=== PATIENT | female | born 1995 | race Caucasian/White ===

== ENCOUNTER → 2024-04-03 | Outpatient (CLI) | payer OTHER, SELFPAY ==
[2024-04-06 20:07] LABS: Chlamydia By Nucleic Acid AMP Negative (Negative); Gonococcus By Nucleic Acid AMP Negative (Negative)
[2024-04-08 07:58] LABS: HPV Reflexed? NOT INDICATED
== END | disposition home or self-care (01) ==
LOC: LABSPEC 10:43
PROVIDERS: Referring Provider Obstetrics & Gynecology; Visit Provider Obstetrics & Gynecology
DX: O09.90 Supervision of high risk pregnancy, unspecified, unspecified trimester (principal); Z3A.00 Weeks of gestation of pregnancy not specified; Z12.4 Encounter for screening for malignant neoplasm of cervix
CPT/HCPCS: 87086; 87491; 87591; 88175; G0145

== ENCOUNTER → 2024-04-28 | Outpatient (CLI) | payer OTHER, SELFPAY ==
[2024-04-28 17:06] LABS: Absolute Lymphocyte Count 2.12 X10^3/uL (0.83-4.51); Absolute Neutrophil Count 6.2 X10^3/uL (2.0-7.7); Basophil# 0.04 X10^3/uL; Basophil% 0.4 % (0-1); Eosinophil# 0.06 X10^3/uL; Eosinophils% 0.7 % (0-5); Hematocrit 33.1 % (37-47); Hemoglobin 11.3 g/dL (12.0-15.0); Lymphocyte # 2.12 X10^3/ul (0.83-4.51); Lymphocyte % 23.4 % (19-41); Mean Corp Hgb Conc 34.1 g/dL (32-36); Mean Corpuscular Hgb 31.8 pg (27.0-32.0); Mean Corpuscular Volume 93.2 fL (81-99); Mean Platelet Vol. 8.7 fl (6.2-12.0); Monocyte# 0.57 X10^3/uL; Monocyte% 6.3 % (0-10); NRBC Flagged by Analyzer 0 % (0-5); Neutrophil # 6.22 X10^3/uL (2.7-7.7); Neutrophil % 68.6 % (47-70); Platelet Count 249 K/mm3 (150-450); RBC Distribution Width CV 12.1 % (11.6-14.6); RBC Distribution Width SD 41.8 fl (35.1-43.9); Red Blood Count 3.55 M/mm3 (4.2-5.4); White Blood Count 9.1 K/mm3 (4.4-11.0)
[2024-04-28 18:08] LABS: Hepatitis B Surface Antigen Nonreactive (Nonreactive); Hepatitis C Antibody Nonreactive (Nonreactive); Rubella IgG REAC (Nonreactive); Syphilis Antibodies Nonreactive (Nonreactive)
[2024-04-28 20:31] LABS: HIV Nonreactive (Nonreactive)
[2024-05-01 05:07] LABS: Anti-Cardiolipin Ab, IgG, Qn < 9 GPL U/mL (0-14); Anti-Cardiolipin Ab, IgM, Qn < 9 MPL U/mL (0-12); Beta-2-Glycoprotein I IgA <9 (0-25); Beta-2-Glycoprotein I IgG <9 (0-20); Beta-2-Glycoprotein I IgM <9 (0-32); Dilute Prothrombin Time (dPT) 34.8 sec (0.0-47.6); Dilute Russell Viper Venom 28.7 sec (0.0-47.0); Interpretation Comment: (.); dPT Confirm Ratio 0.97 Ratio (0.00-1.34)
== END | disposition home or self-care (01) ==
PROVIDERS: Referring Provider Obstetrics & Gynecology; Visit Provider Obstetrics & Gynecology
DX: O09.90 Supervision of high risk pregnancy, unspecified, unspecified trimester (principal); Z3A.00 Weeks of gestation of pregnancy not specified; N96 Recurrent pregnancy loss
CPT/HCPCS: 36415; 85025; 86146; 86147; 86703; 86762; 86780; 86803; 86850; 86900; 86901; 87340

== ENCOUNTER → 2024-08-20 | Outpatient (CLI) | payer OTHER, SELFPAY ==
[2024-08-20 16:58] LABS: Hematocrit 30.3 % (37-47); Hemoglobin 10.3 g/dL (12.0-15.0); Immature Granulocytes Count 0.120 X10^3/uL (0.0-0.0); Mean Corp Hgb Conc 34.0 g/dL (32-36); Mean Corpuscular Volume 94.7 fL (81-99); Mean Platelet Vol. 8.4 fl (6.2-12.0); NRBC Flagged by Analyzer 0 % (0-5); Platelet Count 229 K/mm3 (150-450); RBC Distribution Width CV 12.4 % (11.6-14.6); RBC Distribution Width SD 43.1 fl (35.1-43.9); Red Blood Count 3.20 M/mm3 (4.2-5.4); White Blood Count 10.4 K/mm3 (4.4-11.0)
[2024-08-20 17:37] LABS: Glucose Challenge Gest 1H 50g 124 mg/dL (70-140); HIV Nonreactive (Nonreactive); Syphilis Antibodies Nonreactive (Nonreactive)
== END | disposition home or self-care (01) ==
PROVIDERS: Nurse Practitioner Women's Health; Visit Provider Obstetrics & Gynecology
DX: O09.90 Supervision of high risk pregnancy, unspecified, unspecified trimester (principal); Z13.1 Encounter for screening for diabetes mellitus; Z3A.00 Weeks of gestation of pregnancy not specified
CPT/HCPCS: 36415; 82950; 85025; 86703; 86780

== ENCOUNTER → 2024-09-16 | Outpatient (CLI) | payer MEDICAID, SELFPAY ==
[2024-09-16 11:03] LABS: Hematocrit 32.1 % (37-47); Hemoglobin 10.8 g/dL (12.0-15.0); Immature Granulocytes Count 0.090 X10^3/uL (0.0-0.0); Mean Corp Hgb Conc 33.6 g/dL (32-36); Mean Corpuscular Volume 95.5 fL (81-99); Mean Platelet Vol. 8.7 fl (6.2-12.0); NRBC Flagged by Analyzer 0 % (0-5); Platelet Count 214 K/mm3 (150-450); RBC Distribution Width CV 12.4 % (11.6-14.6); RBC Distribution Width SD 43.1 fl (35.1-43.9); Red Blood Count 3.36 M/mm3 (4.2-5.4); White Blood Count 10.2 K/mm3 (4.4-11.0)
[2024-09-16 12:07] LABS: AST(SGOT) 18 U/L (<=31); Alanine Aminotransfer ALT/SGPT 13 U/L (<=34); Albumin, Serum 3.6 g/dL (3.5-5.0); Alkaline Phosphatase 97 U/L (35-104); Anion Gap 12 (5-15); BUN 8 mg/dL (4-19); BUN/Creat Ratio 16.9 RATIO (10-20); Calcium,Total 9.2 mg/dL (7.6-11.0); Carbon Dioxide 20.5 mmol/L (21.0-32.0); Chloride 104 mmol/L (98-108); Globulin 2.9 g/dL (2.2-4.2); Glucose 79 mg/dL (70-99); Potassium 3.5 mmol/L (3.3-5.1)
== END | disposition home or self-care (01) ==
LOC: BWCLAB 08:58
PROVIDERS: Visit Provider Obstetrics & Gynecology
DX: R51.9 Headache, unspecified (principal)
CPT/HCPCS: 36415; 80053; 85025

== ENCOUNTER 2024-09-27 16:57 | Outpatient (CLI) | payer OTHER, MEDICAID, SELFPAY ==
--- OUTSIDE RECORDS SUMMARY | 2024-09-27 17:07 | XMS RPT_ITS | CCD ---
Author Organization [facility] CliniSypr Care Team Providers Care Winch Driver Name Role Phone Clau Guevara Primary Care Provider [phone] Ismael SALES RESEARCH ANALYST-BUTTING SAW OPERATOR, Clau Primary Care Provider Ismael SALES RESEARCH ANALYST-BUTTING SAW OPERATOR, Clau Primary Care Provider Ismael BUTTING SAW OPERATOR, Clau Carrasco Primary Care Provider CLAU GUEVARA Primary Care Unavailable ROMARIO LINDSEY Attending Unavailable ISMAEL, CLAU CARRASCO Primary Care Unavailable MIRA COELLO Attending Unava ilMICKEY Kapoor Attending Unavailab CLAU Galindo Primary Care Unavailable Guevara SALES RESEARCH ANALYST-BUTTING SAW OPERATOR, Clau Primary Care Provider CLAU GUEVARA Primary Care Unavailable ROMARIO LINDSEY Referring Unavailable ROMARIO LINDSEY Attending Unavailable HANNA BLANCA JR, JR Attending Unavaila ble ISMAEL, CLAU Referring Unavailable GUEVARA, CLAU Primary Care Unavailable SELF, SELF Referring Unavailable GUEVARA, CLAU Attending Unavailable GUEVARA, CLAU Primary Care Unavailable SELF, SELF Referring Unavailable ISMAEL, CLAU Attending Unavailable ISMAEL, CLAU Primary Care Unavailable Dr. Rochelle Farris MD Attending Provider Dr. Rochelle Farris MD Referring Provider [phone] AMIRA PISANO Attending Unavailable OSCAR MONTGOMERY Primary Care Unavailable ROCHELLE FARRIS Referring Unavailabl e Dr. Marie Reilly DO Attending Provider Mamie Sandoval CNM Attending Provider [phone] Maci Moy Attending Provider [phone] Rochelle Farris MD Attending Provider [phone] Dr. Rochelle Farris MD Referring Provider [phone] Dr. Rochelle Farris MD Attending Provider Marie Reilly Attending UnavailRochelle Robertson Attending Unavailable Mamie Sandoval Attending Unavailable Mode SANDOVAL, Maci Attending Unavailable Rochelle Farris Attending Unavailable Rochelle Farris Attending Unavailable Rochelle Farris Referring Unavailable Rochelle Farris Attending Unavailable Rochelle Farris Referring Unavailable Marie Reilly Attending UnavailMamie Arias Attending Unavailable Marie Reilly Attending UnavailRochelle Robertson Attending Unavailable Rochelle Farris Attending Unavailable Allergies Allergy Classification Reported Allergen(s) Allergy Type Date of Onset Reaction(s) Facility (20 sources) Clindamycin; Translations: [CLINDAMYCIN] Drug Allergy 7 [facility] (20 sources) Penicillins; Translations: [PENICILLINS] Propensity to adverse reactions to drug 7 [facility] (2 sources) Penicillins Propensity to adverse reactions to drug 8 [facility] (2 sources) Penicillins Propensity to adverse reactions to drug 7 [facility] (7 sources) Penicillins Allergy to substance 5 [facility] (1 source) Clindamycin Drug Allergy 5 [facility] (1 source) Penicillins Drug allergy (disorder) 5 [facility] Medications Current Medications Medication Drug Class(es) Dates Sig (Normalized) Sig (Original) albuterol 108 (90 Base) MCG/ACT Aero Soln inhaler (10 sources) take 1 puff(s) by inhalation every six hours as needed for wheezing albuterol 108 (90 Base) MCG/ACT Aero Soln inhaler Inhale 1 puff every 6 hours as needed for Wheezing. 0 Active azithromycin 250 mg oral tablet (1 source) Macrolide Antimicrobial Start: 07-03-2021 azithromycin 250 MG tablet TAKE 2 TABLETS BY MOUTH ON DAY 1, AND THEN TAKE 1 TABLET BY MOUTH ONCE A DAY ON DAY 2 THROUGH DAY 5 0 07/03/2021 Active cephalexin 500 mg oral capsule (1 source) Cephalosporin Antibacterial Start: 01-09-2023 End: 01-16-2023 take 1 capsule by mouth every eight hours cephALEXin 500 MG capsule Take 1 capsule by mouth every 8 hours for 7 days. 21 capsule 0 01/09/2023 01/16/2023 Active cyclobenzaprine hydrochloride 10 mg oral tablet (18 sources) Muscle Relaxant Start: 07-04-2023 End: 07-24-2023 take 1 tablet by mouth three times daily as needed for muscle spasms cyclobenzaprine (FLEXERIL) 10 MG tablet Take 1 (one) tablet (10 mg total) by mouth 3 (three) times a day as needed for muscle spasms . 60 tablet 0 07/04/2023 07/24/2023 Active Start: 07-16-2018 take 1 tablet by julee th every eight hours as needed for muscle spasms cyclobenzaprine 5 MG Tab tablet TAKE 1 TABLET BY MOUTH EVERY 8 HOURS NEEDED FOR MUSCLE SPASM 5 07/16/2018 Active Start: 12-24-2016 End: 05-23-2018 take 1 tablet by mouth once daily as needed cyclobenzaprine 5 MG Tab tablet Take 5 mg by mouth daily as needed. 0 12/24/2016 05/23/2018 Discontinued famotidine 20 mg oral tablet (2 sources) Histamine-2 Receptor Antagonist Start: 09-16-2024 take 1 tablet by mouth twice daily Famotidine (Pepcid) 20 mg tablet Active 20 mg PO TWICE A DAY 60 September 16, 2024 12:00am meloxicam 7.5 mg oral tablet (2 sources) Nonsteroidal Anti-inflammatory Drug Start: 01-24-2024 End: 03-24-2024 take 1 tablet by mouth once daily Meloxicam 7.5 MG tablet Take 1 tablet by mouth daily. 01/24/2024 03/24/2024 Active metaxalone 800 mg oral tablet (1 source) Start: 01-29-2024 take 1 tablet by mouth three times daily metaxalone 800 MG tablet Indications: Chronic bilateral low back pain, unspecified whether sciatica present , Myalgia Take 1 tablet by mouth 3 times daily. 30 tablet 2 01/29/2024 Active Mv-Mn 642-Ym-Np0-Dha-Epa -Fish 180 mcg-35 mg- 25 mg-5 mg tablet,chewable (6 sources) Start: 03-24-2024 Mv-Mn 783-Gr-Bd8-Dha-Epa -Fish 180 mcg-35 mg- 25 mg-5 mg tablet,chewable Active 1 {tbl} PO .qd March 24, 2024 1:00am Pnv No.701-Dy-Gg7-Dha- Epa-Fish 180 mcg-35 mg- 25 mg-5 mg tablet,chewable (1 source) Start: 03-24-2024 Pnv No.088-Qd-Fi0-Dha- Epa-Fish 180 mcg-35 mg- 25 mg-5 mg tablet,chewable Active {tbl} PO March 24, 2024 1:00am predniSONE 50 mg oral tablet (10 sources) Start: 01-21-2024 End: 01-28-2024 take 1 tablet by mouth once daily predniSONE (DELTASONE) 50 MG tablet Take 1 (one) tablet (50 mg total) by mouth daily for 7 days . 7 tablet 01/21/2024 01/28/2024 Active Start: 07-07-2021 End: 01-29-2024 take 1 tablet by mouth once daily predniSONE 20 MG tablet Take 1 tablet by mouth daily. 10 tablet 07/07/2021 01/29/2024 Discontinued (Therapy completed) Start: 04-14-2019 End: 08-26-2019 take 1 tablet by mouth twice daily predniSONE 20 MG tablet Take 1 tablet by mouth 2 times daily. 10 tablet 0 04/14/2019 08/26/2019 Discontinued (Therapy completed) Start: 08-14-2018 End: 04-14-2019 take 2 tablets by mouth once daily predniSONE 20 MG Tab tablet Indications: Chronic pain of left knee Take 2 tablets by mouth daily. 14 tablet 0 08/14/2018 04/14/2019 Discontinued (Therapy completed) Completed/Discontinued Medications Medication Drug Class(es) Dates Sig (Normalized) Sig (Original) [id number] 200 actuat albuterol 0.09 mg/actuat metered dose inhaler (4 sources) beta2-Adrenergic Agonist End: 01-29-2024 take 1 puff(s) by inhalation every six hours as needed for wheezing albuterol 108 (90 Base) MCG/ACT Aero Soln inhaler Inhale 1 puff every 6 hours as needed for Wheezing. 01/29/2024 Discontinued (Patient Preference) End: 05-23-2018 take 1 puff(s) by inhalation every six hours as needed for wheezing albuterol 108 (90 Base) MCG/ACT Aero Soln inhaler Inhale 1 puff every 6 hours as needed for Wheezing. 0 05/23/2018 Discontinued busPIRone hydrochloride 5 mg oral tablet (1 source) End: 08-26-2019 take 1 tablet by mouth three times daily busPIRone 5 MG tablet Take 5 mg by mouth 3 times daily. 0 08/26/2019 Discontinued (Patient Preference) COMPRESSION STOCKING -RX (12 sources) Start: 08-19-2019 End: 01-29-2024 COMPRESSION STOCKING -RX Indications: POTS (postural orthostatic tachycardia syndrome) 15-20 mmhg 1 Each 08/19/2019 01/29/2024 Discontinued (Patient Preference) Start: 08-19-[address] [place] -RX Indications: POTS (postural orthostatic tachycardia syndrome) 15-20 mmhg 1 Each 0 08/19/2019 Active dicyclomine hydrochloride 20 mg oral tablet (1 source) Anticholinergic Start: 10-30-2017 End: 05-23-2018 take 1 tablet by mouth every six hours as needed dicyclomine 20 MG Tab tablet Take 1 tablet by mouth every 6 hours as needed for Abdominal Spasms. For abdominal spasms 14 tablet 0 10/30/2017 05/23/2018 Discontinued 168 hr ethinyl estradiol 0.27227 mg/hr / norelgestromin 0.37239 mg/hr transdermal system (4 sources) Progestin, Estrogen Start: 05-24-2020 End: 01-29-2024 norelgestromin-eth inyl estradiol (Xulane) 150-35 MCG/24HR Patch Weekly Indications: Irregular periods , Dysmenorrhea , Encounter for initial prescription of transdermal patch hormonal contraceptive device Place 1 patch on skin every 7 days. Apply a new patch eack week for 3 weeks (21 total days). Do not apply a patch during the fourth week. 12 patch 3 05/24/2020 01/29/2024 Discontinued (Patient Preference) fexofenadine hydrochloride 180 mg oral tablet (1 source) Histamine-1 Receptor Antagonist Start: 04-09-2017 End: 05-23-2018 take 1 tablet by mouth once daily fexofenadine 180 MG Tab tablet Indications: Irritant contact dermatitis, unspecified trigger Take 1 tablet by mouth daily. 30 tablet 1 04/09/2017 05/23/2018 Discontinued ibuprofen 800 mg oral tablet (5 sources) Nonsteroidal Anti-inflammatory Drug Start: 05-24-2020 End: 01-29-2024 take 1 tablet by mouth every eight hours as needed for pain ibuprofen 800 MG tablet Indications: Dysmenorrhea Take 1 tablet by mouth every 8 hours as needed for Moderate Pain or Severe Pain. 50 tablet 1 05/24/2020 01/29/2024 Discontinued (Patient Preference) Start: 05-24-2020 End: 05-24-2020 take 1 tablet by mouth every six hours as needed for pain ibuprofen 800 MG tablet Indications: Dysmenorrhea Take 1 tablet by mouth every 6 hours as needed for Moderate Pain or Severe Pain. 50 tablet 1 05/24/2020 05/24/2020 Discontinued (Reorder) iohexol (OMNIPAQUE) 350 MG/ML injection 75 mL (1 source) Start: 04-14-2019 End: 04-14-2019 iohexol (OMNIPAQUE) 350 MG/ML injection 75 mL midodrine hydrochloride 10 mg oral tablet (8 sources) alpha-Adrenerg ic Agonist Start: 10-09-2019 End: 01-29-2024 take 1 tablet by mouth three times daily midodrine 10 MG tablet Indications: Vasodepressor syncope Take 1 tablet by mouth 3 times daily. 270 tablet 2 10/09/2019 01/29/2024 Discontinued (Patient Preference) Start: 09-14-2019 take 1 tablet by julee three times daily midodrine 5 MG tablet Indications: Vasodepressor syncope Take 1 tablet by mouth 3 times daily. 270 tablet 3 09/14/2019 Active naproxen 500 mg oral tablet (8 sources) Nonsteroidal Anti-inflammatory Drug Start: 07-24-2018 End: 08-26-2019 take 1 tablet by mouth twice daily at mealtime naproxen 500 MG Tab tablet Indications: Acute pain of left knee Take 1 tablet by mouth 2 times daily with meals. 60 tablet 1 07/24/2018 08/26/2019 Discontinued (Therapy completed) Start: 10-27-2017 End: 05-23-2018 take 1 tablet by mouth twice daily at mealtime naproxen (NAPROSYN) 500 MG Tab tablet Take 1 tablet by mouth 2 times daily with meals for 10 days. 20 tablet 0 10/27/2017 05/23/2018 Discontinued nitroglycerin 0.4 mg/actuat mucosal spray (1 source) Nitrate Vasodilator Start: 09-14-2019 End: 09-15-2019 nitroGLYCERIN (NITROLINGUAL) spray 1 spray ondansetron 4 mg disintegrating oral tablet (1 source) Serotonin-3 Receptor Antagonist Start: 10-30-2017 End: 05-23-2018 take 1 tablet by mouth every four hours as needed ondansetron (ZOFRAN ODT) 4 MG Tab Dispersible tablet Take 1 tablet by mouth every 4 hours as needed for Nausea. 15 tablet 0 10/30/2017 05/23/2018 Discontinued 250 ml sodium chloride 9 mg/ml injection (3 sources) Start: 09-14-2019 End: 09-14-2019 sodium chloride 0.9% IV solution 1,000 mL Start: 04-14-2019 End: 04-14-2019 sodium chloride 0.9% IV solu tion 75 mL Start: 04-14-2019 End: 04-14-2019 sodium chloride 0.9% IV solu tion 1,000 mL vitamin b6 10 mg oral tablet (7 sources) Start: 04-03-2024 End: 06-29-2024 take 1 tablet by mouth once daily as needed Pyridoxine (Vitamin B6) 10 mg tablet Discontinued 10 mg PO daily as needed April 03, 2024 1:00am June 29, 2024 2:25pm Problems Active Problems Problem Classification Problem Date Documented Da te Episodic/Chronic Abdominal pain (1 source) Left lower quadrant pain; Translations: [Intermittent left lower quadrant abdominal pain] Episodic Asthma (20 sources) Mild intermittent asthma; Translations: [Exercise-induced asthma] Onset: 08-26-2019 08-26-2019 Chronic Comment on above: needs albuterol PRN, rare use. Cardiac dysrhythmias (3 sources) Postural orthostatic tachycardia syndrome ; Translations: [Other specified cardiac arrhythmias] Onset: 01-24-2015 08-26-2019 Chronic Cardiac dysrhythmias (2 sources) Tachycardia; Translations: [Palpitations] Episodic Headache; including migraine (1 source) Headache; including migraine; Translations: [Headache, unspecified] Onset: 09-24-2024 Malaise and fatigue (3 sources) Fatigue; Translations: [Other fatigue] Onset: 01-29-2024 01-29-2024 Episodic Menstrual disorders (7 sources) Irregular periods; Translations: [Dysmenorrhea] Onset: 12-04-2016 12-04-2016 Chronic Nonspecific chest pain (3 sources) Chest pain; Translations: [Chest pain, unspecified type] Episodic Other acquired deformities (3 sources) Scoliosis, unspecified; Translations: [Scoliosis, unspecified] Onset: 06-20-2023 Chronic Other acquired deformities (6 sources) Acquired scoliosis Chronic Other acquired deformities (20 sources) Scoliosis deformity of spine; Translations: [Scoliosis, unspecified] 06-25-2024 Chronic Comment on above: anesthesia consult Other bone disease and musculoskeletal deformities (1 source) Costal chondritis; Translations: [Costochondritis] Episodic Other complications of (9 sources) Anemia of ; Translations: [Anemia complicating , unspecified trimester] 08-23-2024 Chronic Comment on above: add Fe Other complications of (1 source) Anemia complicating , unspecified trimester; Translations: [Anemia complicating , unspecified trimester] Onset: 09-16-2024 Chronic Other complications of (20 sources) High risk ; Translations: [Supervision of high risk , unspecified, unspecified trimester] 03-24-2024 Episodic Comment on above: , EVE 11/08/24, B F Ángel [id number], EVE 11/08/24 , BF Ángel [id number], EVE 11/08/24 , samir Moss BF Ángel Other complications of (1 source) Supervision of high risk , unspecified, second trimester; Translations: [Supervision of high risk , unspecified, second trimester] Onset: 09-16-2024 Episodic Other complications of (1 source) Supervision of high risk , unspecified, unspecified trimester; Translations: [Supervision of high risk , unspecified, unspecified trimester] Onset: 08-27-2024 Episodic Other connective tissue disease (1 source) Pain in finger of left hand; Translations: [Pain in left finger(s)] 01-09-2023 Episodic Other connective tissue disease (1 source) Muscle pain; Translations: [Myalgia, unspecified site] 01-29-2024 Episodic Other connective tissue disease (1 source) Muscle weakness; Translations: [Muscle weakness (generalized)] 01-29-2024 Episodic Other connective tissue disease (2 sources) Myalgia, unspecified site; Translations: [Myalgia, unspecified site] Onset: 01-29-2024 Episodic Other connective tissue disease (2 sources) Muscle weakness (generalized); Translations: [Muscle weakness (generalized)] Onset: 01-29-2024 Episodic Other female genital disorders (20 sources) Retroverted uterus; 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] 03-24-2024 Episodic Other female genital disorders (1 source) Malposition of uterus; 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] Onset: 06-29-2024 Episodic Other lower respiratory disease (1 source) Dyspnea; Translations: [SOB (shortness of breath)] Episodic Other nervous system disorders (2 sources) Paresthesia; Translations: [Paresthesia of skin] Episodic Other nervous system disorders (1 source) Impaired cognition; Translations: [Other symptoms and signs involving cognitive functions and awareness] 01-30-2024 Episodic Other nervous system disorders (2 sources) Anesthesia of skin; Translations: [Anesthesia of skin] Onset: 01-29-2024 Episodic Other non-traumatic joint disorders (3 sources) Knee pain; Translations: [Acute pain of left knee] Episodic Other and delivery including normal (20 sources) ; Translations: [Encounter for supervision of normal , unspecified, unspecified trimester] 04-28-2024 Episodic Comment on above: declined NIPT & Aguilera ier testing Phlebitis; thrombophlebitis and thromboembolism (1 source) Acute venous embolism and thrombosis of deep vessels of distal lower extremity; Translations: [Acute deep vein thrombosis (DVT) of calf muscle vein of right lower extremity] Episodic Residual codes; unclassified (7 sources) Stopped drinking alcohol; Translations: [Personal history of other specified conditions] 04-03-2024 Episodic Comment on above: 1-2 beers daily unti l 02/14/24. None since. Residual codes; unclassified (20 sources) Family history of malignant neoplasm of breast in first degree relative; Translations: [Family history of malignant neoplasm of breast] 04-03-2024 Episodic Comment on above: Mother @ 46yo, karen ic needs to find out what, offered empower screen Residual codes; unclassified (1 source) 31 weeks gestation of ; Translations: [31 weeks gestation of ] Onset: 09-16-2024 Episodic Residual codes; unclassified (1 source) Family history of malignant neoplasm of breast; Translations: [Family history of malignant neoplasm of breast] Onset: 09-16-2024 Episodic Residual codes; unclassified (1 source) 20 weeks gestation of ; Translations: [20 weeks gestation of ] Onset: 06-29-2024 Episodic Spondylosis; intervertebral disc disorders; other back problems (11 sources) Low back pain; Translations: [Low back pain, unspecified back pain laterality, unspecified chronicity, unspecified whether sciatica present] Onset: 06-20-2023 07-04-2023 Episodic Systemic lupus erythematosus and connective tissue disorders (6 sources) Lupus erythematosus; Translations: [Systemic lupus erythematosus] 04-03-2024 Chronic Comment on above: DOES NOT NECESSARILY HAVE- Pt has had screening for by PCP, has 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 APL labs with [facility] labs Unclassified (2 sources) Patient encounter status; Translations: [Encounter for initial prescription of transdermal patch hormonal contraceptive device] Unclassified (1 source) Low back pain, unspecified; Translations: [Low back pain, unspecified] Onset: 01-24-2024 Unclassified (11 sources) M41.9 - Scoliosis, unspecified Viral infection (20 sources) Viral disease; Translations: [Condyloma acuminatum of the anogenital region] Onset: 06-29-2024 05-28-2024 Episodic Past or Other Problems Problem Classification Problem Date Documented Da te Episodic/Chronic Other circulatory disease (14 sources) Postural orthostatic tachycardia syndrome ; Translations: [POTS (postural orthostatic tachycardia syndrome)] Onset: 01-24-2015 08-26-2019 Episodic Other circulatory disease (1 source) Orthostatic hypotension; Translations: [Orthostatic hypotension] Episodic Other connective tissue disease (12 sources) Fibromyalgia; Translations: [Fibromyalgia] Onset: 08-26-2019 08-26-2019 Episodic Residual codes; unclassified (1 source) 16 weeks gestation of ; Translations: [16 weeks gestation of ] Onset: 05-28-2024 Episodic Residual codes; unclassified (1 source) 12 weeks gestation of ; Translations: [12 weeks gestation of ] Onset: 04-28-2024 Episodic Residual codes; unclassified (1 source) 8 weeks gestation of ; Translations: [8 weeks gestation of ] Onset: 04-03-2024 Episodic Syncope (14 sources) Syncope; Translations: [Near syncope] Onset: 11-23-2014 08-26-2019 Episodic Unclassified (1 source) Low back pain, unspecified; Translations: [Low back pain, unspecified] Onset: 01-24-2024 Results Test Name Value Interpretation Reference Range Facility Absolute lymphocyte countOrd ered By: Marie Reese on 09-16-2024 Lymphocytes Auto (Unsp spec) [#/Vol] 1.74 10*3/uL 0.83-4.51 [facility] Absolute neutrophil countOrd ered By: Marie Reese on 09-16-2024 Neutrophils (Bld) [#/Vol] 7.5 10*3/uL 2.0-7.7 [facility] Anion gap in Serum or Plasma Ordered By: Marie Reese on 09-16-2024 Anion gap [Moles/Vol] 12 mmol/L 5-15 [facility] Automated lymphocyte count a s percentage of total leukocytesOrdered By: Marie Reese on 09-16-2024 Lymphocytes/100 WBC Auto (Unsp spec) 17.1 % Low 19-41 [facility] BUN/creatinine ratioOrdered By: Mariemaria esther Reese on 09-16-2024 Urea nitrogen/Creatinine [Mass ratio] 16.9 mg/mg 10-20 [facility] Basophil percentageOrdered B y: Marie Reese on 09-16-2024 Basophils/100 WBC (Bld) 0.4 % 0-1 [facility] Bilirubin, totalOrdered By: Marie Reese on 09-16-2024 Bilirubin [Mass/Vol] 0.83 mg/dL 0.00-1.30 [facility] CBC W/Diff, Automatedon 08-20 Absolute Lymph 1.74 X10 3/uL Normal 0.83-4.51 [facility] Comment on above: Performed By: #### L 7400.0353, L7000.1800, M100.2200 #### [facility] [address] [place], [place], [id number] Absolute Neut 7.5 X10 3/uL Normal 2.0-7.7 [facility] Comment on above: Performed By: #### L 7400.0353, L7000.1800, M100.2200 #### [facility] [address] [place], [address] Basophils/100 WBC (Bld) 0.4 % Normal 0-1 [facility] Comment on above: Performed By: #### L 7400.0353, L7000.1800, M100.2200 #### [facility] [address] [place], [address] Eosinophils/100 WBC (Bld) 0.6 % Normal 0-5 [facility] Comment on above: Performed By: #### L 7400.0353, L7000.1800, M100.2200 #### [facility] [address] [place], [address] Erythrocyte distribution width (RBC) [Ratio] 12.4 % Normal 11.6-14.6 [facility] Comment on above: Performed By: #### L 7400.0353, L7000.1800, M100.2200 #### [facility] [address] [place], [address] Hematocrit (Bld) [Volume fraction] 32.1 % Low 37-47 [facility] Comment on above: Performed By: #### L 7400.0353, L7000.1800, M100.2200 #### [facility] [address] [place], [address] Hemoglobin (Bld) [Mass/Vol] 10.8 g/dL Low 12.0-15.0 [facility] Comment on above: Performed By: #### L 7400.0353, L7000.1800, M100.2200 #### [facility] [address] [place], [address] IG% 0.900 Normal 0.0-0.9 [facility] Comment on above: Result Comment: IG% - Immature Granulocytes (promyelocytes, myelocytes and metamyelocytes) > 1% indicates that a LEFT SHIFT is Present. Performed By: #### L 7400.0353, L7000.1800, M1.0 #### [facility] [address] [place], [address] Lymphocytes/100 WBC (Bld) 17.1 % Low 19-41 [facility] Comment on above: Performed By: #### L 7400.0353, L7000.1800, .2199 #### [facility] [address] [place], [address] MCH (RBC) [Entitic mass] 32.1 pg High 27.0-32.0 [facility] Comment on above: Performed By: #### L 7400.0353, L7000.1800, .2199 #### [facility] [address] [place], [address] MCHC (RBC) [Mass/Vol] 33.6 g/dL Normal 32-36 [facility] Comment on above: Performed By: #### L 7400.0353, L7000.1800, .2199 #### [facility] [address] [place], [address] MCV (RBC) [Entitic vol] 95.5 fL Normal 81-99 [facility] Comment on above: Performed By: #### L 7400.0353, L7000.1800, .2199 #### [facility] [address] [place], [address] Monocytes/100 WBC (Bld) 7.4 % Normal 0-10 [facility] Comment on above: Performed By: #### L 7400.0353, L7000.1800, .0 #### [facility] [address] [place], [address] Neutrophils/100 WBC (Bld) 73.6 % High 47-70 [facility] Comment on above: Performed By: #### L 7400.0353, L7000.1800, .2199 #### [facility] [address] [place], [address] Nucleated RBC (Bld) [#/Vol] 0 10*3/uL Normal 0-5 [facility] Comment on above: Performed By: #### L 7400.0353, L7000.1800, .2199 #### [facility] [address] [place], [address] Platelet mean volume (Bld) [Entitic vol] 8.7 fL Normal 6.2-12.0 [facility] Comment on above: Performed By: #### L 7400.0353, L7000.1800, .2199 #### [facility] [address] [place], [address] Platelets (Bld) [#/Vol] 214 10*3/uL Normal 150-450 [facility] Comment on above: Performed By: #### L 7400.0353, L7000.1800, .2199 #### [facility] [address] [place], [address] RBC (Bld) [#/Vol] 3.36 10*6/uL Low 4.2-5.[address] [facility] Comment on above: Performed By: #### L 7400.0353, L7000.1800, .2199 #### [facility] [address] [place], [address] RDW SD 43.1 fl Normal 35.1-43.9 [facility] Comment on above: Performed By: #### L 7400.0353, L7000.1800, .2199 #### [facility] [address] [place], [address] WBC (Bld) [#/Vol] 10.2 10*3/uL Normal 4.4-11.[address] [facility] Comment on above: Performed By: #### L 7400.0353, L7000.1800, M1 #### [facility] [address] [place], [address] Carbon dioxide, total [Moles /volume] in Central venous bloodOrdered By: Marie Reese on 09-16-2024 CO2 [Moles/Vol] 20.5 mmol/L Low 21.0-32.0 [facility] Chloride assayOrdered By: Yon Reese on 09-16-2024 Chloride [Moles/Vol] 104 mmol/L 98-108 [facility] Comprehensive Metabolic Prof ilon 09-16-2024 Albumin [Mass/Vol] 3.6 g/dL Normal 3.5-5.0 [facility] Comment on above: Performed By: #### L 7400.0353, L7000.1800, #### [facility] [address] [place], [address] Albumin/Globulin [Mass ratio] 1.2 {ratio} Normal 0.9-2.4 [facility] Comment on above: Performed By: #### L 7400.0353, L7000.1800, M1.0 #### [facility] [address] [place], [address] ALK PHOS 97 U/L Normal 35-104 [facility] Comment on above: Performed By: #### L 7400.0353, L7000.1800, M100.2200 #### [facility] [address] [place], [address] ALT [Catalytic activity/Vol] 13 U/L Normal <=34 [facility] Comment on above: Performed By: #### L 7400.0353, L7000.1800, M100.2200 #### [facility] [address] [place], [address] AST [Catalytic activity/Vol] 18 U/L Normal <=31 [facility] Comment on above: Performed By: #### L 7400.0353, L7000.1800, #### [facility] [address] [place], [address] Bilirubin [Mass/Vol] 0.83 mg/dL Normal 0.00-1.30 [facility] Comment on above: Performed By: #### L 7400.0353, L7000.1800, #### [facility] [address] [place], [address] BUN/CRE 16.9 RATIO Normal 10-20 [facility] Comment on above: Performed By: #### L 7400.0353, L7000.1800, #### [facility] [address] [place], [address] Calcium [Mass/Vol] 9.2 mg/dL Normal 7.6-11.0 [facility] Comment on above: Performed By: #### L 7400.0353, L7000.1800, #### [facility] [address] [place], [address] Chloride [Moles/Vol] 104 mmol/L Normal 98-108 [facility] Comment on above: Performed By: #### L 7400.0353, L7000.1800, #### [facility] [address] [place], [address] CO2 [Moles/Vol] 20.5 mmol/L Low 21.0-32.0 [facility] Comment on above: Performed By: #### L 7400.0353, L7000.1800, #### [facility] [address] [place], [address] Creatinine [Mass/Vol] 0.46 mg/dL Low 0.70-1.20 [facility] Comment on above: Performed By: #### L 7400.0353, L7000.1800, #### [facility] [address] [place], [address] GAP 12 Normal 5-15 [facility] Comment on above: Performed By: #### L 7400.0353, L7000.1800, #### [facility] [address] [place], [address] GFR/1.73 sq M.predicted among non-blacks MDRD (S/P/Bld) [Vol rate/Area] 132 mL/min/{1.73_m2} Normal >60 [facility] Comment on above: Result Comment: mL/m in/1.73m2 CKD-EPI Creatinine Equation (2020) Performed By: #### L 7400.0353, L7000.1800, #### [facility] [address] [place], [address] Globulin (S) [Mass/Vol] 2.9 g/dL Normal 2.2-4.2 [facility] Comment on above: Performed By: #### L 7400.0353, L7000.1800, #### [facility] [address] [place], [address] Glucose [Mass/Vol] 79 mg/dL Normal 70-99 [facility] Comment on above: Performed By: #### L 7400.0353, L7000.1800, #### [facility] [address] [place], [address] Potassium [Moles/Vol] 3.5 mmol/L Normal 3.3-5.1 [facility] Comment on above: Performed By: #### L 7400.0353, L7000.1800, #### [facility] [address] [place], [address] Sodium [Moles/Vol] 137 mmol/L Normal 133-145 [facility] Comment on above: Performed By: #### L 7400.0353, L7000.1800, M100.2200 #### [facility] [address] [place], [address] T PROT 6.5 g/dL Normal 5.9-8.4 [facility] Comment on above: Performed By: #### L 7400.0353, L7000.1800, M100.2200 #### [facility] [address] [place], [address] Urea nitrogen [Mass/Vol] 8 mg/dL Normal 4-19 [facility] Comment on above: Performed By: #### L 7400.0353, L7000.1800, M100.2200 #### [facility] [address] [place], [address] Eosinophil percentageOrdered By: Marie Reese on 09-16-2024 Eosinophils/100 WBC (Bld) 0.6 % 0-5 [facility] Erythrocyte distribution wid th ratioOrdered By: Marie Reese on 09-16-2024 Erythrocyte distribution width (RBC) [Ratio] 12.4 % 11.6-14.6 [facility] Erythrocyte distribution wid th standard deviationOrdered By: Marie Reese on 09-16-2024 Erythrocyte distribution width (RBC) [Ratio] 43.1 fl 35.1-43.9 [facility] Glomerular filtration rate ( GFR) estimation/1.73 sq m using serum, plasma, or whole bOrdered By: Marie Reese on 09-16-2024 GFR/1.73 sq M.predicted among non-blacks MDRD (S/P/Bld) [Vol rate/Area] 132 mL/min/{1.73_m2} >60 [facility] Comment on above: mL/min/1.73m2 CKD-EP I Creatinine Equation (2020) Hematocrit Auto (Bld) [Volum e fraction]Ordered By: Marie Reese on 09-16-2024 Hematocrit (Bld) [Volume fraction] 32.1 % Low 37-47 [facility] Hemoglobin measurementOrdere d By: Marie Reese on 09-16-2024 Hemoglobin (Bld) [Mass/Vol] 10.8 g/dL Low 12.0-15.0 [facility] Immature granulocytes/100 WB C Auto (Bld)Ordered By: Marie Reese on 09-16-2024 Immature granulocytes/100 WBC (Bld) 0.900 % 0.0-0.9 [facility] Comment on above: IG% - Immature Granu locytes (promyelocytes, myelocytes and metamyelocytes) > 1% indicates that a LEFT SHIFT is Present. Laboratory - Chemistry and C hemistry - challengeOrdered By: Marie Reese on 09-16-2024 AST [Catalytic activity/Vol] 18 U/L <32 [facility] Glucose Ql (U) Negative [facility] - UrinalysisOrder ed By: Marie Reese on 09-16-2024 Protein Ql (U) Negative [facility] MCV (mean corpuscular volume ) determinationOrdered By: Marie Reese on 09-16-2024 MCV (RBC) [Entitic vol] 95.5 fL 81-99 [facility] Mean corpuscular hemoglobin (MCH) determinationOrdered By: Marie Reese on 09-16-2024 MCH (RBC) [Entitic mass] 32.1 pg High 27.0-32.0 [facility] Mean corpuscular hemoglobin concentration (MCHC) determinationOrdered By: Marie Reese on 09-16-2024 MCHC (RBC) [Mass/Vol] 33.6 g/dL 32-36 [facility] Mean platelet volume determi nationOrdered By: Marie Reese on 09-16-2024 Platelet mean volume (Bld) [Entitic vol] 8.7 fL 6.2-12.0 [facility] Monocyte percentageOrdered B y: Marie Reese on 09-16-2024 Monocytes/100 WBC (Bld) 7.4 % 0-10 [facility] Neutrophil percentageOrdered By: Marie Reese on 09-16-2024 Neutrophils/100 WBC (Bld) 73.6 % High 47-70 [facility] Nucleated red blood cell per centageOrdered By: Marie Reese on 09-16-2024 Nucleated RBC/100 WBC (Bld) [Ratio] 0 % 0-5 [facility] Visit Reporton 09-16-2024 [facility] Visit Report [facility] [address], [address] [place] [address] OFFICE VISIT Date of Service: 09/16/24 MR#: [id number] Acct: [id number] Name: MAIDA BELL Rep #: [id number] : 1995 Provider: Dr. Marie Bee DO Age/Sex: 29/F Location: [facility] Status: Signed Intake Vital Signs 08/20/24 15:06 09/07/24 11:30 09/16/24 08:42 09/16/24 08:45 Height 5 ft 4 in 5 ft 4 in 5 ft 4 in 5 ft 4 in Weight: 146 lb 8 oz BMI 25.1 BP 131/87 H Intake Visit Reasons: 32 WK OB [employer] Required: No Is patient in pain?: No Allergies Penicillins Allergy (Intermediate, Verified 09/16/24 08:42) Rash clindamycin Adverse Reaction (Intermediate, Verified 09/16/24 08:42) rashes Medications ???Medication ???Instructions ???Recorded ???Confirmed ???Type mv-mn 110-FA 180 mcg-om3 35 mg-dha 1 tab PO .qd 03/24/24 09/16/24 H istory 25 mg-epa 5 mg-fish oil chew tablet famotidine 20 mg tablet (Pepcid) 20 mg PO BID #60 tabs 09/16/24 Rx Last Menstrual Period: 02/02/24 Zika: Zika virus screening: Negative : No PFSH PFSH Medical History Wears glasses Anxiety Low iron History of scoliosis Non-smoker Asthma History of stress test Hx of chlamydia infection Surgical History [place] teeth extracted Family History Grandmother Diabetes Paternal Mother Breast cancer, Onset Age: 46 genetic Grandfather COPD (chronic obstructive pulmonary disease) Paternal- smoker Social History adopted: No household members: significant other housing: house current occupational status: employed current occupation: [employer] current occupational exposures/hazards: No pets and animals: Yes pets and animals: dog(s) history of recent travel: No sexually active: Yes Smoking Status: Never smoker alcohol intake: current alcohol intake frequency: 0-2 drinks per day Alcohol type: beer details: Stopped 02/14/24- No alcohol since substance use type: does not use well-balanced diet: daily or most days caffeine: Yes (occasional energy drink) Type: other Number of servings: 1 eating out: rarely or never during the past year weight has: remained stable what type of physical activity do you participate in: none david/mandaeism: None seatbelt use: always do you feel safe at home: Yes additional social history: BF kid[employer]- [employer] History 1 Elective abortions Hx Para 0 Spontaneous abortions Hx # Term Pregnancies Ectopic pregnancies Hx # Pregnancies Multiple births # of living children HPI 32 WK OB Details: MAIDA BELL is a 29 year old who presents for routine OB visit. OB Visit EVE Calculator Estimated Delivery Date Method Current WG Current Estimate 11/08/24 LMP (Certain) 32w 3d Expected Delivery Route/Plan Labor Preferences- CB/BF classes: encouraged labor support person: Ángel labor intervention preferences: declined pain management options preferred: [] cut cord/dad catch: cord : yes PP control planned: discussed discussed possible routes of delivery and associated risks: [] special requests: [] Specific Issue/Plans Covid status: [] Flu vaccine: [] Tdap vaccine: given Rhogam: NA LARC form signed: yes movement and labor precautions reviewed. Problem list reviewed and updated with the most current plan of care details and appropriate orders placed. Relevant counseling for the gestational age provided. Continue routine care and follow up unless otherwise noted in visit notes/problem list details Initial Weight: Not Recorded Date -???-???-???-???-???-??? -???-???-???-???-???-??? - EGA Weight BP Urine Prot -???-???-???-???-???-??? -???-???-???-???-???-??? - Glucose FHR FuHt Pres Dilation -???-???-???-???-???-??? -???-???-???-???-???-??? - Effaced St Visit Note 04/03/24 -???-???-???-???-???-??? -???-???-???-???-???-??? - 8w 5d 118 lb 4 oz 117/79 -???-???-???-???-???-??? -???-???-???-???-???-??? - 170 -???-???-???-???-???-??? -???-???-???-???-???-??? - SM- CRL 1cm cons with 8w5d 04/28/24 -???-???-???-???-???-??? -???-???-???-???-???-??? - 12w 2d 124 lb 131/74 Negative -???-???-???-???-???-??? -???-???-???-???-???-??? - Negative 150 -???-???-???-???-???-??? -???-???-???-???-???-??? - Sm- co right lower back discomfort going down into her buttox. 05/28/24 -???-???-???-???-???-??? -???-???-???-???-???-??? - 16w 4d 128 lb 115/71 Negative -???-???-???-???-???-??? -???-???-???-???-???-??? - Negative 151 (more content not included)... Normal [facility] Platelet countOrdered By: Yon Reese on 09-16-2024 Platelets (Bld) [#/Vol] 214 10*3/uL 150-450 [facility] Potassium measurement (mass/ volume)Ordered By: Marie Reese on 09-16-2024 Potassium (Unsp spec) [Mass/Vol] 3.5 mmol/L 3.3-5.1 [facility] RBC Auto (Bld) [#/Vol]Ordere d By: Marie Reese on 09-16-2024 RBC (Bld) [#/Vol] 3.36 10*6/uL Low 4.2-5.[address] [facility] Serum creatinine measurement (mass/volume)Ordered By: Marie Reese on 09-16-2024 Creatinine [Mass/Vol] 0.46 mg/dL Low 0.70-1.20 [facility] Serum globulin measurementOr dered By: Marie Reese on 09-16-2024 Globulin (S) [Mass/Vol] 2.9 g/dL 2.2-4.2 [facility] Serum glucose measurement (m ass/volume)Ordered By: Marie Reese on 09-16-2024 Glucose [Mass/Vol] 79 mg/dL 70-99 [facility] Serum or plasma alanine julien otransferase (ALT) measurementOrdered By: Marie Reese on 09-16-2024 ALT [Catalytic activity/Vol] 13 U/L <35 [facility] Serum or plasma albumin aury urement (mass/volume)Ordered By: Marie Reese on 09-16-2024 Albumin [Mass/Vol] 3.6 g/dL 3.5-5.0 [facility] Serum or plasma albumin/glob ulin mass ratioOrdered By: Marie Reese on 09-16-2024 Albumin/Globulin [Mass ratio] 1.2 {ratio} 0.9-2.4 [facility] Serum or plasma alkaline krys sphatase measurementOrdered By: Marie Reese on 09-16-2024 ALP [Catalytic activity/Vol] 97 U/L 35-104 [facility] Serum or plasma calcium aury urement (mass/volume)Ordered By: Marie Reese on 09-16-2024 Calcium [Mass/Vol] 9.2 mg/dL 7.6-11.0 [facility] Serum or plasma urea nitroge n measurement (mass/volume)Ordered By: Marie Reese on 09-16-2024 Urea nitrogen [Mass/Vol] 8 mg/dL 4-19 [facility] Sodium levelOrdered By: Daniela Reese on 09-16-2024 Sodium [Moles/Vol] 137 mmol/L 133-145 [facility] Total proteinOrdered By: Jessica Reese on 09-16-2024 Protein [Mass/Vol] 6.5 g/dL 5.9-8.4 [facility] White blood cell (WBC) count Ordered By: Marie Reese on 09-16-2024 WBC (Bld) [#/Vol] 10.2 10*3/uL 4.4-11.[address] [facility] Office Visit Reporton 09-07-2024 [facility] Visit Report [facility]'s [address], [address] [place] [address] OFFICE VISIT Date of Service: 09/07/24 MR#: [id number] Acct: [id number] Name: MAIDA BELL Rep #: [id number] : 1995 Provider: Dr. Rochelle love MD Age/Sex: 29/F Location: [facility] Status: Signed Intake Vital Signs 08/20/24 15:06 09/07/24 11:30 Height 5 ft 4 in 5 ft 4 in Weight: 146 lb 2 oz BMI 25.0 BP 120/69 Intake Visit Reasons: 30 WK OB [employer] Required: No Is patient in pain?: Yes (pelvic pressure) Allergies Penicillins Allergy (Intermediate, Verified 09/07/24 11:36) Rash clindamycin Adverse Reaction (Intermediate, Verified 09/07/24 11:36) rashes Medications ???Medication ???Instructions ???Recorded ???Confirmed ???Type mv-mn 110-FA 180 mcg-om3 35 mg-dha 1 tab PO .qd 03/24/24 09/07/24 H istory 25 mg-epa 5 mg-fish oil chew tablet Last Menstrual Period: 02/02/24 Zika: Zika virus screening: Negative : No PFSH PFSH Medical History Wears glasses Anxiety Low iron History of scoliosis Non-smoker Asthma History of stress test Hx of chlamydia infection Surgical History [place] teeth extracted Family History Grandmother Diabetes Paternal Mother Breast cancer, Onset Age: 46 genetic Grandfather COPD (chronic obstructive pulmonary disease) Paternal- smoker Social History adopted: No household members: significant other housing: house current occupational status: employed current occupation: [employer] current occupational exposures/hazards: No pets and animals: Yes pets and animals: dog(s) history of recent travel: No sexually active: Yes Smoking Status: Never smoker alcohol intake: current alcohol intake frequency: 0-2 drinks per day Alcohol type: beer details: Stopped 02/14/24- No alcohol since substance use type: does not use well-balanced diet: daily or most days caffeine: Yes (occasional energy drink) Type: other Number of servings: 1 eating out: rarely or never during the past year weight has: remained stable what type of physical activity do you participate in: none david/mandaeism: None seatbelt use: always do you feel safe at home: Yes additional social history: [employer] History 1 Elective abortions Hx Para 0 Spontaneous abortions Hx # Term Pregnancies Ectopic pregnancies Hx # Pregnancies Multiple births # of living children HPI 30 WK OB Details: MAIDA BELL is a 29 year old who presents for routine OB visit. OB Visit EVE Calculator Estimated Delivery Date Method Current WG Current Estimate 11/08/24 LMP (Certain) 31w 1d Expected Delivery Route/Plan Labor Preferences- CB/BF classes: encouraged labor support person: Ángel labor intervention preferences: declined pain management options preferred: [] cut cord/dad catch: cord : yes PP control planned: discussed discussed possible routes of delivery and associated risks: [] special requests: [] Specific Issue/Plans Covid status: [] Flu vaccine: [] Tdap vaccine: given Rhogam: NA LARC form signed: yes movement and labor precautions reviewed. Problem list reviewed and updated with the most current plan of care details and appropriate orders placed. Relevant counseling for the gestational age provided. Continue routine care and follow up unless otherwise noted in visit notes/problem list details Initial Weight: Not Recorded Date -???-???-???-???-???-??? -???-???-???-???-???-??? - EGA Weight BP Urine Prot -???-???-???-???-???-??? -???-???-???-???-???-??? - Glucose FHR FuHt Pres Dilation -???-???-???-???-???-??? -???-???-???-???-???-??? - Effaced St Visit Note 04/03/24 -???-???-???-???-???-??? -???-???-???-???-???-??? - 8w 5d 118 lb 4 oz 117/79 -???-???-???-???-???-??? -???-???-???-???-???-??? - 170 -???-???-???-???-???-??? -???-???-???-???-???-??? - SM- CRL 1cm cons with 8w5d 04/28/24 -???-???-???-???-???-??? -???-???-???-???-???-??? - 12w 2d 124 lb 131/74 Negative -???-???-???-???-???-??? -???-???-???-???-???-??? - Negative 150 -???-???-???-???-???-??? -???-???-???-???-???-??? - Sm- co right lower back discomfort going down into her buttox. 05/28/24 -???-???-???-???-???-??? -???-???-???-???-???-??? - 16w 4d 128 lb 115/71 Negative -???-???-???-???-???-??? -???-???-???-???-???-??? - Negative 151 -???-???-???-???-???-??? -???-???-???-???-???-??? - JV- pt was i n [place] and went to ER for heavy vaginal bleeding. was found to h (more content not included)... Normal [facility] Absolute lymphocyte countOrd ered By: Maci Coello on 08-20-2024 Lymphocytes Auto (Unsp spec) [#/Vol] 2.00 10*3/uL 0.83-4.51 [facility] Absolute neutrophil countOrd ered By: Maci Coello on 08-20-2024 Neutrophils (Bld) [#/Vol] 7.5 10*3/uL 2.0-7.7 [facility] Automated lymphocyte count a s percentage of total leukocytesOrdered By: Maci Coello on 08-20-2024 Lymphocytes/100 WBC Auto (Unsp spec) 19.2 % 19-41 [facility] Basophil percentageOrdered B y: Maci Coello on 08-20-2024 Basophils/100 WBC (Bld) 0.4 % 0-1 [facility] CBC W/Diff, Automatedon -2024 Absolute Lymph 2.00 X10 3/uL Normal 0.83-4.51 [facility] Comment on above: Performed By: #### L 7400.0353, L7000.1800, M100.2200 #### [facility] [address] [place], [address] Absolute Neut 7.5 X10 3/uL Normal 2.0-7.7 [facility] Comment on above: Performed By: #### L 7400.0353, L7000.1800, M100.2200 #### [facility] [address] [place], [address] Basophils/100 WBC (Bld) 0.4 % Normal 0-1 [facility] Comment on above: Performed By: #### L 7400.0353, L7000.1800, M100.2200 #### [facility] [address] [place], [address] Eosinophils/100 WBC (Bld) 0.6 % Normal 0-5 [facility] Comment on above: Performed By: #### L 7400.0353, L7000.1800, M100.2200 #### [facility] [address] [place], [address] Erythrocyte distribution width (RBC) [Ratio] 12.4 % Normal 11.6-14.6 [facility] Comment on above: Performed By: #### L 7400.0353, L7000.1800, M100.2200 #### [facility] [address] [place], [address] Hematocrit (Bld) [Volume fraction] 30.3 % Low 37-47 [facility] Comment on above: Performed By: #### L 7400.0353, L7000.1800, .0 #### [facility] [address] [place], [address] Hemoglobin (Bld) [Mass/Vol] 10.3 g/dL Low 12.0-15.0 [facility] Comment on above: Performed By: #### L 7400.0353, L7000.1800, #### [facility] [address] [place], [address] IG% 1.200 High 0.0-0.9 [facility] Comment on above: Result Comment: IG% - Immature Granulocytes (promyelocytes, myelocytes and metamyelocytes) > 1% indicates that a LEFT SHIFT is Present. Performed By: #### L 7400.0353, L7000.1800, #### [facility] [address] [place], [address] Lymphocytes/100 WBC (Bld) 19.2 % Normal 19-41 [facility] Comment on above: Performed By: #### L 7400.0353, L7000.1800, #### [facility] [address] [place], [address] MCH (RBC) [Entitic mass] 32.2 pg High 27.0-32.0 [facility] Comment on above: Performed By: #### L 7400.0353, L7000.1800, #### [facility] [address] [place], [address] MCHC (RBC) [Mass/Vol] 34.0 g/dL Normal 32-36 [facility] Comment on above: Performed By: #### L 7400.0353, L7000.1800, M100.2200 #### [facility] [address] [place], [address] MCV (RBC) [Entitic vol] 94.7 fL Normal 81-99 [facility] Comment on above: Performed By: #### L 7400.0353, L7000.1800, M100.2200 #### [facility] [address] [place], [address] Monocytes/100 WBC (Bld) 6.2 % Normal 0-10 [facility] Comment on above: Performed By: #### L 7400.0353, L7000.1800, M100.2200 #### [facility] [address] [place], [address] Neutrophils/100 WBC (Bld) 72.4 % High 47-70 [facility] Comment on above: Performed By: #### L 7400.0353, L7000.1800, M100.2200 #### [facility] [address] [place], [address] Nucleated RBC (Bld) [#/Vol] 0 10*3/uL Normal 0-5 [facility] Comment on above: Performed By: #### L 7400.0353, L7000.1800, M100.0 #### [facility] [address] [place], [address] Platelet mean volume (Bld) [Entitic vol] 8.4 fL Normal 6.2-12.0 [facility] Comment on above: Performed By: #### L 7400.0353, L7000.1800, M100.2200 #### [facility] [address] [place], [address] Platelets (Bld) [#/Vol] 229 10*3/uL Normal 150-450 [facility] Comment on above: Performed By: #### L 7400.0353, L7000.1800, M100.2200 #### [facility] [address] [place], [address] RBC (Bld) [#/Vol] 3.20 10*6/uL Low 4.2-5.[address] [facility] Comment on above: Performed By: #### L 7400.0353, L7000.1800, M100.2200 #### [facility] [address] [place], [address] RDW SD 43.1 fl Normal 35.1-43.9 [facility] Comment on above: Performed By: #### L 7400.0353, L7000.1800, M100.2200 #### [facility] [address] [place], [address] WBC (Bld) [#/Vol] 10.4 10*3/uL Normal 4.4-11.[address] [facility] Comment on above: Performed By: #### L 7400.0353, L7000.1800, M100.2200 #### [facility] [address] [place], [address] Eosinophil percentageOrdered By: Maci Coello on 08-20-2024 Eosinophils/100 WBC (Bld) 0.6 % 0-5 [facility] Erythrocyte distribution wid th ratioOrdered By: Maci Coello on 08-20-2024 Erythrocyte distribution width (RBC) [Ratio] 12.4 % 11.6-14.6 [facility] Erythrocyte distribution wid th standard deviationOrdered By: Maci Coello on 08-20-2024 Erythrocyte distribution width (RBC) [Ratio] 43.1 fl 35.1-43.9 [facility] Glucose Challenge Gest 1H 50 andrea 08-20-2024 GLU GEST 50g 1H 124 mg/dL Normal 70-140 [facility] Comment on above: Performed By: #### L 7400.0353, L7000.1800, M100.2200 #### [facility] [address] [facility]. [place], [place], [id number] Glucose measurement at 2 carmen rs post-dose gestational glucose tolerance testOrdered By: Maci Coello on 08-20-2024 Glucose [Mass/Vol] 124 mg/dL 70-140 [facility] HIVon 08-20-2024 HIV Non-Reactive Normal Nonreactive [facility] Comment on above: Result Comment: Non- Reactive Reactive Repeatedly reactive samples must be confirmed according to CDC recommended confirmatory algorithms. The subresults for either HIVAG or AHIV can be used as an aid in the selection of the confirmation algorithm for reactive samples. Send out specimens with Reactive results to [facility] for confirmation. Order the HIV antibody detection and differentiation: lc#[id number] Performed By: #### L 7400.0353, L7000.1800, M100.2200 #### [facility] [address] [facility]. [place], [place], [address] Hematocrit Auto (Bld) [Volum e fraction]Ordered By: Maci Coello on 08-20-2024 Hematocrit (Bld) [Volume fraction] 30.3 % Low 37-47 [facility] Hemoglobin measurementOrdere d By: Maci Coello on 08-20-2024 Hemoglobin (Bld) [Mass/Vol] 10.3 g/dL Low 12.0-15.0 [facility] Immature granulocytes/100 WB C Auto (Bld)Ordered By: Maci Coello on 08-20-2024 Immature granulocytes/100 WBC (Bld) 1.200 % High 0.0-0.9 [facility] Comment on above: IG% - Immature Granu locytes (promyelocytes, myelocytes and metamyelocytes) > 1% indicates that a LEFT SHIFT is Present. Laboratory - Chemistry and C hemistry - challengeOrdered By: Mamie Sandoval on 08-20-2024 Glucose Ql (U) Negative [facility] - UrinalysisOrder ed By: Mamie Sandoval on 08-20-2024 Protein Ql (U) Negative [facility] MCV (mean corpuscular volume ) determinationOrdered By: Maci Coello on 08-20-2024 MCV (RBC) [Entitic vol] 94.7 fL 81-99 [facility] Mean corpuscular hemoglobin (MCH) determinationOrdered By: Maci Coello on 08-20-2024 MCH (RBC) [Entitic mass] 32.2 pg High 27.0-32.0 [facility] Mean corpuscular hemoglobin concentration (MCHC) determinationOrdered By: Maci Coello on 08-20-2024 MCHC (RBC) [Mass/Vol] 34.0 g/dL 32-36 [facility] Mean platelet volume determi nationOrdered By: Maciemily Coello on 08-20-2024 Platelet mean volume (Bld) [Entitic vol] 8.4 fL 6.2-12.0 [facility] Monocyte percentageOrdered B y: Maci Coello on 08-20-2024 Monocytes/100 WBC (Bld) 6.2 % 0-10 [facility] Neutrophil percentageOrdered By: Maci Coello on 08-20-2024 Neutrophils/100 WBC (Bld) 72.4 % High 47-70 [facility] No Panel InformationOrdered By: Maci Coello on 08-20-2024 HIV (1&2) Antibody Non-Reactive Nonreactive [facility] Comment on above: Non-ReactiveReactive Repeatedly reactive samples must be confirmed according to CDC recommended confirmatory algorithms. The subresults for either HIVAG or AHIV can be used as an aid in the selection of the confirmation algorithm for reactive samples.Send out specimens with Reactive results to [facility] for confirmation.Order the HIV antibody detection and differentiation: #[id number] Nucleated red blood cell per centageOrdered By: Maci Coello on 08-20-2024 Nucleated RBC/100 WBC (Bld) [Ratio] 0 % 0-5 [facility] Visit Reporton 08-20-2024 [facility] Visit Report [facility], [address] [place] [address] OFFICE VISIT Date of Service: 08/20/24 MR#: [id number] Acct: [id number] Name: MAIDA BELLN Rep #: [id number] : 1995 Provider: ROSA M Malloy ams Age/Sex: 29/F Location: [facility] Status: Signed Intake Vital Signs 06/25/24 14:56 07/21/24 14:55 08/20/24 15:04 08/20/24 15:06 Height 5 ft 4 in 5 ft 4 in 5 ft 4 in 5 ft 4 in Weight: 138 lb 2 oz 141 lb 6 oz BMI 23.7 24.3 BP 114/80 119/75 Intake Visit Reasons: 28wk ob/glucose [facility] Required: No Is patient in pain?: No Allergies Penicillins Allergy (Intermediate, Verified 08/20/24 15:04) Rash clindamycin Adverse Reaction (Intermediate, Verified 08/20/24 15:04) rashes Medications ???Medication ???Instructions ???Recorded ???Confirmed ???Type mv-mn 110-FA 180 mcg-om3 35 mg-dha 1 tab PO .qd 03/24/24 08/20/24 H istory 25 mg-epa 5 mg-fish oil chew tablet Last Menstrual Period: 02/02/24 Zika: Zika virus screening: Negative : No PFSH PFSH Medical History Wears glasses Anxiety Low iron History of scoliosis Non-smoker Asthma History of stress test Hx of chlamydia infection Surgical History [place] teeth extracted Family History Grandmother Diabetes Paternal Mother Breast cancer, Onset Age: 46 genetic Grandfather COPD (chronic obstructive pulmonary disease) Paternal- smoker Social History adopted: No household members: significant other housing: house current occupational status: employed current occupation: [employer] current occupational exposures/hazards: No pets and animals: Yes pets and animals: dog(s) history of recent travel: No sexually active: Yes Smoking Status: Never smoker alcohol intake: current alcohol intake frequency: 0-2 drinks per day Alcohol type: beer details: Stopped 02/14/24- No alcohol since substance use type: does not use well-balanced diet: daily or most days caffeine: Yes (occasional energy drink) Type: other Number of servings: 1 eating out: rarely or never during the past year weight has: remained stable what type of physical activity do you participate in: none david/mandaeism: None seatbelt use: always do you feel safe at home: Yes additional social history: 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 OB Visit EVE Calculator Estimated Delivery Date Method Current WG Current Estimate 11/08/24 LMP (Certain) 28w 4d Expected Delivery Route/Plan Labor Preferences- CB/BF classes: encouraged labor support person: Ángel labor intervention preferences: [] pain management options preferred: [] cut cord/dad catch: cord : yes PP control planned: discussed discussed possible routes of delivery and associated risks: [] special requests: [] Specific Issue/Plans Covid status: [] Flu vaccine: [] Tdap vaccine: [] Rhogam: NA LARC form signed: yes Problem list reviewed and updated with the most current plan of care details and appropriate orders placed. Relevant counseling for the gestational age provided. Continue routine care and follow up unless otherwise noted in visit notes/problem list details Initial Weight: Not Recorded Date -???-???-???-???-???-??? -???-???-???-???-???-??? - EGA Weight BP Urine Prot -???-???-???-???-???-??? -???-???-???-???-???-??? - Glucose FHR FuHt Pres Dilation -???-???-???-???-???-??? -???-???-???-???-???-??? - Effaced St Visit Note 04/03/24 -???-???-???-???-???-??? -???-???-???-???-???-??? - 8w 5d 118 lb 4 oz 117/79 -???-???-???-???-???-??? -???-???-???-???-???-??? - 170 -???-???-???-???-???-??? -???-???-???-???-???-??? - SM- CRL 1cm cons with 8w5d 04/28/24 -???-???-???-???-???-??? -???-???-???-???-???-??? - 12w 2d 124 lb 131/74 Negative -???-???-???-???-???-??? -???-???-???-???-???-??? - Negative 150 -???-???-???-???-???-??? -???-???-???-???-???-??? - Sm- co right lower back discomfort going down into her buttox. 05/28/24 -???-???-???-???-???-??? -???-???-???-???-???-??? - 16w 4d 128 lb 115/71 Negative -???-???-???-???-???-??? -???-???-???-???-???-??? - Negative 151 -???-???-???-???-???-??? -???-???-???-???-???-??? - JV- pt [place] i n [place] and went to ER for heavy vaginal bleeding. (more content not included)... Normal [facility] Platelet countOrdered By: Jesus Coello on 08-20-2024 Platelets (Bld) [#/Vol] 229 10*3/uL 150-450 [facility] RBC Auto (Bld) [#/Vol]Ordere d By: Maci Coello on 08-20-2024 RBC (Bld) [#/Vol] 3.20 10*6/uL Low 4.2-5.[address] [facility] Syphilis Antibodieson 2024 Syphilis Abs Non-Reactive Normal Nonreactive [facility] Comment on above: Performed By: #### L 7400.0353, L7000.1800, M100.2200 #### [facility] [address] [place], [address] White blood cell (WBC) count Ordered By: Maci Coello on 08-20-2024 WBC (Bld) [#/Vol] 10.4 10*3/uL 4.4-11.[address] [facility] - Chemistry and C hemistry - challengeOrdered By: Maci Coello on 07-21-2024 Glucose Ql (U) Negative [facility] - UrinalysisOrder ed By: Maci Coello on 07-21-2024 Protein Ql (U) Negative [facility] Visit Reporton 07-21-2024 [facility] Visit Report [facility] [address], [address] [place] [address] OFFICE VISIT Date of Service: 07/21/24 MR#: [id number] Acct: [id number] Name: MAIDA BELL Rep #: [id number] : 1995 Provider: SHEA lozano Age/Sex: 28/F Location: [facility] Status: Signed Intake Vital Signs 06/25/24 14:56 07/21/24 14:55 Height 5 ft 4 in 5 ft 4 in Weight: 138 lb 2 oz BMI 23.7 BP 114/80 Intake Visit Reasons: 24wk ob Chief Complaint: 24 Week OB [facility] Required: No Is patient in pain?: No Allergies Penicillins Allergy (Intermediate, Verified 07/21/24 14:59) Rash clindamycin Adverse Reaction (Intermediate, Verified 07/21/24 14:59) rashes Medications ???Medication ???Instructions ???Recorded ???Confirmed ???Type mv-mn 110-FA 180 mcg-om3 35 mg-dha 1 tab PO .qd 03/24/24 07/21/24 H istory 25 mg-epa 5 mg-fish oil chew tablet Last Menstrual Period: 02/02/24 Zika: Zika virus screening: Negative : No PFSH PFSH Medical History Wears glasses Anxiety Low iron History of scoliosis Non-smoker Asthma History of stress test Hx of chlamydia infection Surgical History [place] teeth extracted Family History Grandmother Diabetes Paternal Mother Breast cancer, Onset Age: 46 genetic Grandfather COPD (chronic obstructive pulmonary disease) Paternal- smoker Social History adopted: No household members: significant other housing: house current occupational status: employed current occupation: [employer] current occupational exposures/hazards: No pets and animals: Yes pets and animals: dog(s) history of recent travel: No sexually active: Yes Smoking Status: Never smoker alcohol intake: current alcohol intake frequency: 0-2 drinks per day Alcohol type: beer details: Stopped 02/14/24- No alcohol since substance use type: does not use well-balanced diet: daily or most days caffeine: Yes (occasional energy drink) Type: other Number of servings: 1 eating out: rarely or never during the past year weight has: remained stable what type of physical activity do you participate in: none david/mandaeism: None seatbelt use: always do you feel safe at home: Yes additional social history: Ángel- [employer] History 1 Elective abortions Hx Para 0 Spontaneous abortions Hx # Term Pregnancies Ectopic pregnancies Hx # Pregnancies Multiple births # of living children HPI 24wk ob Details: MAIDA BELL is a 28 year old who presents for routine OB visit. OB Visit EVE Calculator Estimated Delivery Date Method Current WG Current Estimate 11/08/24 LMP (Certain) 24w 2d Expected Delivery Route/Plan Labor Preferences- CB/BF classes: encouraged labor support person: Ángel labor intervention preferences: [] pain management options preferred: [] cut cord/dad catch: cord : yes PP control planned: discussed discussed possible routes of delivery and associated risks: [] special requests: [] Specific Issue/Plans Covid status: [] Flu vaccine: [] Tdap vaccine: [] Rhogam: NA LARC form signed: yes Problem list reviewed and updated with the most current plan of care details and appropriate orders placed. Relevant counseling for the gestational age provided. Continue routine care and follow up unless otherwise noted in visit notes/problem list details Initial Weight: Not Recorded Date -???-???-???-???-???-??? -???-???-???-???-???-??? - EGA Weight BP Urine Prot -???-???-???-???-???-??? -???-???-???-???-???-??? - Glucose FHR FuHt Pres Dilation -???-???-???-???-???-??? -???-???-???-???-???-??? - Effaced St Visit Note 04/03/24 -???-???-???-???-???-??? -???-???-???-???-???-??? - 8w 5d 118 lb 4 oz 117/79 -???-???-???-???-???-??? -???-???-???-???-???-??? - 170 -???-???-???-???-???-??? -???-???-???-???-???-??? - SM- CRL 1cm cons with 8w5d 04/28/24 -???-???-???-???-???-??? -???-???-???-???-???-??? - 12w 2d 124 lb 131/74 Negative -???-???-???-???-???-??? -???-???-???-???-???-??? - Negative 150 -???-???-???-???-???-??? -???-???-???-???-???-??? - Sm- co right lower back discomfort going down into her buttox. 05/28/24 -???-???-???-???-???-??? -???-???-???-???-???-??? - 16w 4d 128 lb 115/71 Negative -???-???-???-???-???-??? -???-???-???-???-???-??? - Negative 151 -???-???-???-???-???-??? -???-???-???-???-???-??? - JV- [place] and went to ER for heavy vaginal bleeding. was found to have some lumps on the vaginal area. on e (more content not included)... Normal [facility] - Chemistry and C hemistry - challengeOrdered By: Mamie Sandoval on 06-25-2024 Glucose Ql (U) Negative [facility] - UrinalysisOrder ed By: Mamie Sandoval on 06-25-2024 Protein Ql (U) Negative [facility] Visit Reporton 06-25-2024 [facility] Office Visit Report [facility]'[address], [address] [place] [address] OFFICE VISIT Date of Service: 06/25/24 MR#: [id number] Acct: [id number] Name: MAIDA BELL Rep #: [id number] : 1995 Provider: ROSA M Malloy ams Age/Sex: 28/F Location: [facility] Status: Signed Intake Vital Signs 04/28/24 13:57 05/28/24 16:02 06/25/24 14:56 Height 5 ft 4 in 5 ft 4 in 5 ft 4 in Weight: 132 lb 6 oz BMI 22.7 BP 113/74 Intake Visit Reasons: 20wk OB Chief Complaint: 20wk OB [facility]anner Required: No Is patient in pain?: No Allergies Penicillins Allergy (Intermediate, Verified 06/25/24 14:53) Rash Medications ???Medication ???Instructions ???Recorded ???Confirmed ???Type PNV 178-FA 180 mcg-om3 35 mg-dha tab PO 03/24/24 06/25/24 History 25 mg-epa 5 mg-fish oil chew tablet pyridoxine (vitamin B6) 10 mg 10 mg PO QDAY PRN 04/03/24 5 History tablet Last Menstrual Period: 02/02/24 : No PFSH PFSH Medical History Hx of chlamydia infection Surgical History [place] teeth extracted Family History Grandmother Diabetes Paternal Mother Breast cancer, Onset Age: 46 genetic Grandfather COPD (chronic obstructive pulmonary disease) Paternal- smoker Social History adopted: No household members: significant other housing: house current occupational status: employed current occupation: [employer] current occupational exposures/hazards: No pets and animals: Yes pets and animals: dog(s) history of recent travel: No sexually active: Yes Smoking Status: Never smoker alcohol intake: current alcohol intake frequency: 0-2 drinks per day Alcohol type: beer details: Stopped 02/14/24- No alcohol since substance use type: does not use well-balanced diet: daily or most days caffeine: Yes (occasional energy drink) Type: other Number of servings: 1 eating out: rarely or never during the past year weight has: remained stable what type of physical activity do you participate in: none david/mandaeism: None seatbelt use: always do you feel safe at home: Yes additional social history: BF Ángel- [employer] History 1 Elective abortions Hx Para 0 Spontaneous abortions Hx # Term Pregnancies Ectopic pregnancies Hx # Pregnancies Multiple births # of living children HPI 20wk OB Details: MAIDA BELL is a 28 year old who presents for routine OB visit. OB Visit EVE Calculator Estimated Delivery Date Method Current WG Current Estimate 11/08/24 LMP (Certain) 20w 4d Expected Delivery Route/Plan Labor Preferences- CB/BF classes: [] labor support person: [] labor intervention preferences: [] pain management options preferred: [] cut cord/dad catch: [] : [] PP control planned: [] discussed possible routes of delivery and associated risks: [] special requests: [] Specific Issue/Plans Covid status: [] Flu vaccine: [] Tdap vaccine: [] Rhogam: [] LARC form signed: [] Problem list reviewed and updated with the most current plan of care details and appropriate orders placed. Relevant counseling for the gestational age provided. Continue routine care and follow up unless otherwise noted in visit notes/problem list details Initial Weight: Not Recorded Date -???-???-???-???-???-??? -???-???-???-???-???-??? - EGA Weight BP Urine Prot -???-???-???-???-???-??? -???-???-???-???-???-??? - Glucose FHR FuHt Pres Dilation -???-???-???-???-???-??? -???-???-???-???-???-??? - Effaced St Visit Note 04/03/24 -???-???-???-???-???-??? -???-???-???-???-???-??? - 8w 5d 118 lb 4 oz 117/79 -???-???-???-???-???-??? -???-???-???-???-???-??? - 170 -???-???-???-???-???-??? -???-???-???-???-???-??? - SM- CRL 1cm cons with 8w5d 04/28/24 -???-???-???-???-???-??? -???-???-???-???-???-??? - 12w 2d 124 lb 131/74 Negative -???-???-???-???-???-??? -???-???-???-???-???-??? - Negative 150 -???-???-???-???-???-??? -???-???-???-???-???-??? - Sm- co right lower back discomfort going down into her buttox. 05/28/24 -???-???-???-???-???-??? -???-???-???-???-???-??? - 16w 4d 128 lb 115/71 Negative -???-???-???-???-???-??? -???-???-???-???-???-??? - Negative 151 -???-???-???-???-???-??? -???-???-???-???-???-??? - JV- [place] was i n [place] and went to ER for heavy vaginal bleeding. was found to have some lumps on the vaginal area. on exam there are several small warty lesions. all healed. no further bleeding. patient reassured. has anatomy scan. 06/25/24 -???-???-???-???-???-??? -???-???-???-? (more content not included)... Normal [facility] - Chemistry and C hemistry - challengeOrdered By: Marie Reese on 05-28-2024 Glucose Ql (U) Negative [facility] - UrinalysisOrder ed By: Marie Reese on 05-28-2024 Protein Ql (U) Negative [facility] Office Visit Reporton 05-28-2024 [facility] Visit Report [facility] [address], [address] [place] [address] OFFICE VISIT Date of Service: 05/28/24 MR#: [id number] Acct: [id number] Name: MAIDA BELL Rep #: [id number] : 1995 Provider: Dr. Marie Bee, Age/Sex: 28/F Location: [facility] Status: Signed Intake Vital Signs 04/28/24 13:57 05/28/24 16:01 05/28/24 16:02 Height 5 ft 4 in 5 ft 4 in 5 ft 4 in Weight: 128 lb BMI 21.9 BP 115/71 Intake Visit Reasons: 16wk OB [facility]anner Required: No Is patient in pain?: No Allergies Penicillins Allergy (Intermediate, Verified 05/28/24 16:01) Rash Medications ???Medication ???Instructions ???Recorded ???Confirmed ???Type PNV 178-FA 180 mcg-om3 35 mg-dha tab PO 03/24/24 05/28/24 History 25 mg-epa 5 mg-fish oil chew tablet pyridoxine (vitamin B6) 10 mg 10 mg PO QDAY PRN 04/03/24 5 History tablet Last Menstrual Period: 02/02/24 Zika: Zika virus screening: Negative : No PFSH PFSH Medical History Hx of chlamydia infection Surgical History [place] teeth extracted Family History Grandmother Diabetes Paternal Mother Breast cancer, Onset Age: 46 genetic Grandfather COPD (chronic obstructive pulmonary disease) Paternal- smoker Social History adopted: No household members: significant other housing: house current occupational status: employed current occupation: [employer] current occupational exposures/hazards: No pets and animals: Yes pets and animals: dog(s) history of recent travel: No sexually active: Yes Smoking Status: Never smoker alcohol intake: current alcohol intake frequency: 0-2 drinks per day Alcohol type: beer details: Stopped 02/14/24- No alcohol since substance use type: does not use well-balanced diet: daily or most days caffeine: Yes (occasional energy drink) Type: other Number of servings: 1 eating out: rarely or never during the past year weight has: remained stable what type of physical activity do you participate in: none david/mandaeism: None seatbelt use: always do you feel safe at home: Yes 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 OB Visit EVE Calculator Estimated Delivery Date Method Current WG Current Estimate 11/08/24 LMP (Certain) 16w 4d Expected Delivery Route/Plan Labor Preferences- CB/BF classes: [] labor support person: [] labor intervention preferences: [] pain management options preferred: [] cut cord/dad catch: [] : [] PP control planned: [] discussed possible routes of delivery and associated risks: [] special requests: [] Specific Issue/Plans Covid status: [] Flu vaccine: [] Tdap vaccine: [] Rhogam: [] LARC form signed: [] Problem list reviewed and updated with the most current plan of care details and appropriate orders placed. Relevant counseling for the gestational age provided. Continue routine care and follow up unless otherwise noted in visit notes/problem list details Initial Weight: Not Recorded Date -???-???-???-???-???-??? -???-???-???-???-???-??? - EGA Weight BP Urine Prot -???-???-???-???-???-??? -???-???-???-???-???-??? - Glucose FHR FuHt Pres Dilation -???-???-???-???-???-??? -???-???-???-???-???-??? - Effaced St Visit Note 04/03/24 -???-???-???-???-???-??? -???-???-???-???-???-??? - 8w 5d 118 lb 4 oz 117/79 -???-???-???-???-???-??? -???-???-???-???-???-??? - 170 -???-???-???-???-???-??? -???-???-???-???-???-??? - SM- CRL 1cm cons with 8w5d 04/28/24 -???-???-???-???-???-??? -???-???-???-???-???-??? - 12w 2d 124 lb 131/74 Negative -???-???-???-???-???-??? -???-???-???-???-???-??? - Negative 150 -???-???-???-???-???-??? -???-???-???-???-???-??? - Sm- co right lower back discomfort going down into her buttox. 05/28/24 -???-???-???-???-???-??? -???-???-???-???-???-??? - 16w 4d 128 lb 115/71 Negative -???-???-???-???-???-??? -???-???-???-???-???-??? - Negative 151 -???-???-???-???-???-??? -???-???-???-???-???-??? - JV- pt was i n [place] and went to ER for heavy vaginal bleeding. was found to have some lumps on the vaginal area. on exam there are several small warty lesions. all healed. no further bleeding. patient reassured. has anatomy scan. ACOG F (more content not included)... Normal [facility] Anticardiolipin IgG, IgMon 0 --2024 ANTICARDIO IgG < 9 Normal 0-14 [facility] Comment on above: Result Comment: Nega tive: <15 Indeterminate: 15 - 20 Low-Med Positive: >20 - 80 High Positive: >80 Performed By: #### L 7400.0353, L7000.1800, M100.2200 #### [facility] [address] [place], [address] Anticardio.IgM < 9 Normal 0-12 [facility] Comment on above: Result Comment: Nega tive: <13 Indeterminate: 13 - 20 Low-Med Positive: >20 - 80 High Positive: >80 Performed at: [facility] [address] [id number] [employer] Air Conditioning Mechanic: Kavita Macias MD, Phone: [phone] Performed at: [facility] [id number] [employer] Air Conditioning Mechanic: Wan Turpin PhD, Phone: [phone] Performed By: #### L 7400.0353, L7000.1800, M100.2200 #### [facility] [address] [place], [place], [id number] Beta-2 Glycoprot IgG, A, 05-01-2024 B2 GLYCO I IGA <9 Normal 0-25 [facility] Comment on above: Result Comment: Resu lt Units: GPI IgA units The reference interval reflects a 3SD or 99th percentile interval, which is thought to represent a potentially clinically significant result in accordance with the International Consensus Statement on the classification criteria for definitive antiphospholipid syndrome (APS). J Thromb Haem 2006;4:295-306. Performed By: #### L 7400.0353, L7000.1800, M100.2200 #### [facility] [address] [place], [address] B2 GLYCO I IGG <9 Normal 0-20 [facility] Comment on above: Result Comment: Resu lt Units: GPI IgG units The reference interval reflects a 3SD or 99th percentile interval, which is thought to represent a potentially clinically significant result in accordance with the International Consensus Statement on the classification criteria for definitive antiphospholipid syndrome (APS). J Thromb Haem 2006;4:295-306. Performed By: #### L 7400.0353, L7000.1800, M100.2200 #### [facility] [address] [place], [place], [address] B2 GLYCO I IGM <9 Normal 0-32 [facility] Comment on above: Result Comment: Resu lt Units: GPI IgM units The reference interval reflects a 3SD or 99th percentile interval, which is thought to represent a potentially clinically significant result in accordance with the International Consensus Statement on the classification criteria for definitive antiphospholipid syndrome (APS). J Thromb Haem 2006;4:295-306. Performed By: #### L 7400.0353, L7000.1800, M100.2200 #### [facility] [address] [place], [address] Lupus Anticoagulant Compon 0 05-01-2024 aPTT Coag (Bld) [Time] 31.0 s Normal 0.0-43.5 [facility] Comment on above: Performed By: #### L 7400.0353, L7000.1800, M100.2200 #### [facility] [address] [place], [address] DILUTE PT (dPT) 34.8 sec Normal 0.0-47.6 [facility] Comment on above: Performed By: #### L 7400.0353, L7000.1800, M100.2200 #### [facility] [address] [place], [address] dPT Conf. Ratio 0.97 Ratio Normal 0.00-1.34 [facility] Comment on above: Performed By: #### L 7400.0353, L7000.1800, M100.2200 #### [facility] [address] [place], [address] DRVVT 28.7 sec Normal 0.0-47.0 [facility] Comment on above: Performed By: #### L 7400.0353, L7000.1800, M100.2200 #### [facility] [address] [place], [address] Interpretation Comment: Normal . [facility] Comment on above: Result Comment: No l upus anticoagulant was detected. Performed By: #### L 7400.0353, L7000.1800, M100.2200 #### [facility] [address] [place], [address] THROMBIN TIME 17.0 sec Normal 0.0-23.0 [facility] Comment on above: Performed By: #### L 7400.0353, L7000.1800, M100.2200 #### [facility] [address] [place], [address] Absolute lymphocyte countOrd ered By: Rochelle Farris on 04-28-2024 Lymphocytes Auto (Unsp spec) [#/Vol] 2.12 10*3/uL 0.83-4.51 [facility] Absolute neutrophil countOrd ered By: Rochelle Farris on 04-28-2024 Neutrophils (Bld) [#/Vol] 6.2 10*3/uL 2.0-7.7 [facility] Automated lymphocyte count a s percentage of total leukocytesOrdered By: Rochelle Farris on 04-28-2024 Lymphocytes/100 WBC Auto (Unsp spec) 23.4 % 19-41 [facility] Basophil percentageOrdered B y: Rochelle Farris on 04-28-2024 Basophils/100 WBC (Bld) 0.4 % 0-1 [facility] Beta 2 glycoprotein 1 IgA Ql (S)Ordered By: Rochelle Kaminskisameera on 04-28-2024 Pntx-rjru-2-Glycoprotei n I IgA Ab <9 0-25 [facility] Comment on above: Result Units: GPI Ig A unitsThe reference interval reflects a 3SD or 99th percentileinterval, which is thought to represent a potentiallyclinically significant result in accordance with theInternational Consensus Statement on the classificationcriteria for definitive antiphospholipid syndrome (APS). JThromb Haem 2006;4:295-306. Beta 2 glycoprotein 1 IgG Ql (S)Ordered By: Rochelle Farris on 04-28-2024 Qban-eoeh-9-Glycoprotei n I IgG Ab <9 0-20 [facility] Comment on above: Result Units: GPI Ig G unitsThe reference interval reflects a 3SD or 99th percentileinterval, which is thought to represent a potentiallyclinically significant result in accordance with theInternational Consensus Statement on the classificationcriteria for definitive antiphospholipid syndrome (APS). JThromb Haem 2006;4:295-306. Beta 2 glycoprotein 1 IgM Ql (S)Ordered By: Rochelle Kaminskisameera on 04-28-2024 Zcjs-dicr-2-Glycoprotei n I IgM Ab <9 0-32 [facility] Comment on above: Result Units: GPI Ig M unitsThe reference interval reflects a 3SD or 99th percentileinterval, which is thought to represent a potentiallyclinically significant result in accordance with theInternational Consensus Statement on the classificationcriteria for definitive antiphospholipid syndrome (APS). JThromb Haem 2006;4:295-306. CBC W/Diff, Automatedon 04-18 Absolute Lymph 2.12 X10 3/uL Normal 0.83-4.51 [facility] Comment on above: Performed By: #### L 7400.0353, L7000.1800, M100.2200 #### [facility] [address] [place], [address] Absolute Neut 6.2 X10 3/uL Normal 2.0-7.7 [facility] Comment on above: Performed By: #### L 7400.0353, L7000.1800, M100.2200 #### [facility] [address] [place], [address] Basophils/100 WBC (Bld) 0.4 % Normal 0-1 [facility] Comment on above: Performed By: #### L 7400.0353, L7000.1800, M100.2200 #### [facility] [address] [place], [address] Eosinophils/100 WBC (Bld) 0.7 % Normal 0-5 [facility] Comment on above: Performed By: #### L 7400.0353, L7000.1800, M100.2200 #### [facility] [address] [place], [address] Erythrocyte distribution width (RBC) [Ratio] 12.1 % Normal 11.6-14.6 [facility] Comment on above: Performed By: #### L 7400.0353, L7000.1800, M100.2200 #### [facility] [address] [place], [address] Hematocrit (Bld) [Volume fraction] 33.1 % Low 37-47 [facility] Comment on above: Performed By: #### L 7400.0353, L7000.1800, M100.0 #### [facility] [address] [place], [address] Hemoglobin (Bld) [Mass/Vol] 11.3 g/dL Low 12.0-15.0 [facility] Comment on above: Performed By: #### L 7400.0353, L7000.1800, .0 #### [facility] [address] [place], [address] IG% 0.600 Normal 0.0-0.9 [facility] Comment on above: Result Comment: IG% - Immature Granulocytes (promyelocytes, myelocytes and metamyelocytes) > 1% indicates that a LEFT SHIFT is Present. Performed By: #### L 7400.0353, L7000.1800, .0 #### [facility] [address] [place], [address] Lymphocytes/100 WBC (Bld) 23.4 % Normal 19-41 [facility] Comment on above: Performed By: #### L 7400.0353, L7000.1800, .0 #### [facility] [address] [place], [address] MCH (RBC) [Entitic mass] 31.8 pg Normal 27.0-32.0 [facility] Comment on above: Performed By: #### L 7400.0353, L7000.1800, .0 #### [facility] [address] [place], [address] MCHC (RBC) [Mass/Vol] 34.1 g/dL Normal 32-36 [facility] Comment on above: Performed By: #### L 7400.0353, L7000.1800, M1.0 #### [facility] [address] [place], [address] MCV (RBC) [Entitic vol] 93.2 fL Normal 81-99 [facility] Comment on above: Performed By: #### L 7400.0353, L7000.1800, M100.0 #### [facility] [address] [place], [address] Monocytes/100 WBC (Bld) 6.3 % Normal 0-10 [facility] Comment on above: Performed By: #### L 7400.0353, L7000.1800, M1.2200 #### [facility] [address] [place], [address] Neutrophils/100 WBC (Bld) 68.6 % Normal 47-70 [facility] Comment on above: Performed By: #### L 7400.0353, L7000.1800, M100.0 #### [facility] [address] [place], [address] Nucleated RBC (Bld) [#/Vol] 0 10*3/uL Normal 0-5 [facility] Comment on above: Performed By: #### L 7400.0353, L7000.1800, .0 #### [facility] [address] [place], [address] Platelet mean volume (Bld) [Entitic vol] 8.7 fL Normal 6.2-12.0 [facility] Comment on above: Performed By: #### L 7400.0353, L7000.1800, M1.0 #### [facility] [address] [place], [address] Platelets (Bld) [#/Vol] 249 10*3/uL Normal 150-450 [facility] Comment on above: Performed By: #### L 7400.0353, L7000.1800, M100.2200 #### [facility] [address] [place], [address] RBC (Bld) [#/Vol] 3.55 10*6/uL Low 4.2-5.[address] [facility] Comment on above: Performed By: #### L 7400.0353, L7000.1800, M100.2200 #### [facility] [address] [place], [address] RDW SD 41.8 fl Normal 35.1-43.9 [facility] Comment on above: Performed By: #### L 7400.0353, L7000.1800, M100.2200 #### [facility] [address] [place], [address] WBC (Bld) [#/Vol] 9.1 10*3/uL Normal 4.4-11.0 [facility] Comment on above: Performed By: #### L 7400.0353, L7000.1800, M100.2200 #### [facility] [address] [place], [address] Cardiolipin IgG IA Qn (S)Ord ered By: Rochelle Farris on 04-28-2024 Anti-Cardiolipin IgG Antibody < 9 GPL U/mL 0-14 [facility] Comment on above: Negative: <15 Indete rminate: 15 - 20 Low-Med Positive: >20 - 80 High Positive: >80 Dilute Stan's viper venom timeOrdered By: Rochelle Farris on 04-28-2024 dRVVT Coag (PPP) [Time] 28.7 s 0.0-47.0 [facility] Dilute prothrombin time rati o confirmationOrdered By: Rochelle Farris on 04-28-2024 Prothrombin Time Ratio 0.97 Ratio 0.00-1.34 [facility] Eosinophil percentageOrdered By: Rochelle Farris on 04-28-2024 Eosinophils/100 WBC (Bld) 0.7 % 0-5 [facility] Erythrocyte distribution wid th ratioOrdered By: Rochelle Farris on 04-28-2024 Erythrocyte distribution width (RBC) [Ratio] 12.1 % 11.6-14.6 [facility] Erythrocyte distribution wid th standard deviationOrdered By: Rochelle Farris on 04-28-2024 Erythrocyte distribution width (RBC) [Entitic vol] 41.8 fL 35.1-43.9 [facility] Erythrocyte distribution width (RBC) [Ratio] 41.8 fl 35.1-43.9 [facility] HBV surface Ag Ql (S)Ordered By: Rochelle Farris on 04-28-2024 Hepatitis B Surface Antigen Non-Reactive Nonreactive [facility] Comment on above: Reactive: Presumptiv e evidence of HBV. Repeatedly reactive samples must be confirmed using a neutralization test ([employer] HBsAg Confirmatory Test)Non-Reactive: HBsAg not detected; does not exclude the possibility of exposure to HBV Hematocrit Auto (Bld) [Volum e fraction]Ordered By: Rochelle Farris on 04-28-2024 Hematocrit (Bld) [Volume fraction] 33.1 % Low 37-47 [facility] Hemoglobin measurementOrdere d By: Rochelle Farris on 04-28-2024 Hemoglobin (Bld) [Mass/Vol] 11.3 g/dL Low 12.0-15.0 [facility] Hepatitis C antibodyOrdered By: Rochelle Farris on 04-28-2024 Hepatitis C Antibody Non-Reactive Nonreactive [facility] Comment on above: Reactive: Presumptiv e evidence of antibodies to HCV. Follow CDC recommendations for supplemental testing.Non-Reactive: Antibodies to HCV were not detected; does not exclude the possibility of exposure to HCVReactive Results are presumptive evidence of antibodies to HCV. Follow CDC recommendations for supplemental testing.Order confirmation testing: HCV Quant by PCR testing - HCVPCR #[id number] Non Reactive: < 0.8 Equivocal: >/= 0.8 to < 1.0 Reactive: >/= 1.0The CDC requires that a reactive/equivocal HCV antibody result be sent out for confirmation. HCV Quant by PCR testing. Immature granulocytes/100 WB C Auto (Bld)Ordered By: Rochelle Farris on 04-28-2024 Immature granulocytes/100 WBC (Bld) 0.600 % 0.0-0.9 [facility] Comment on above: IG% - Immature Granu locytes (promyelocytes, myelocytes and metamyelocytes) > 1% indicates that a LEFT SHIFT is Present. Interpretation of lupus anti coagulant assayOrdered By: Rochelle Farris on 04-28-2024 Lupus Anticoagulant Interpretation Comment: . [facility] Comment on above: No lupus anticoagula nt was detected. L3890.6006on 04-28-2024 HIV Non-Reactive Normal Nonreactive [facility] Comment on above: Performed By: #### L 7400.0353, L7000.1800, .2199 #### [facility] [address] [place], [address] L3890.6102on 04-28-2024 HEP B Surf Ag Non-Reactive Normal Nonreactive [facility] Comment on above: Result Comment: Reac tive: Presumptive evidence of HBV. Repeatedly reactive samples must be confirmed using a neutralization test ([employer] HBsAg Confirmatory Test) Non-Reactive: HBsAg not detected; does not exclude the possibility of exposure to HBV Performed By: #### L 7400.0353, L7000.1800, #### [facility] [address] [place], [address] L3890.6301on 04-28-2024 Hepatitis C Ab Non-Reactive Normal Nonreactive [facility] Comment on above: Result Comment: Reac tive: Presumptive evidence of antibodies to HCV. Follow CDC recommendations for supplemental testing. Non-Reactive: Antibodies to HCV were not detected; does not exclude the possibility of exposure to HCV Reactive Results are presumptive evidence of antibodies to HCV. Follow CDC recommendations for supplemental testing. Order confirmation testing: HCV Quant by PCR testing - HCVPCR #[id number] Non Reactive: < 0.8 Equivocal: >/= 0.8 to < 1.0 Reactive: >/= 1.0 The CDC requires that a reactive/equivocal HCV antibody result be sent out for confirmation. HCV Quant by PCR testing. Performed By: #### L 7400.0353, L7000.1800, M100.2200 #### [facility] [address] [place], [address] L509.4006on 04-28-2024 Rubella IgG REAC Normal Nonreactive [facility] Comment on above: Result Comment: Anti body Result: Interpretation Non-Reactive: Non-Immune Reactive: Immune The following results were obtained with the [employer] Rubella IgG assay. Results from assays of other manufacturers cannot be used interchangeably. Performed By: #### L 7400.0353, L7000.1800, M100.2200 #### [facility] [address] [place], [address] L509.8002on 04-28-2024 Syphilis Abs Non-Reactive Normal Nonreactive [facility] Comment on above: Performed By: #### L 7400.0353, L7000.1800, M100.2200 #### [facility] [address] [facility] [place], [address] Laboratory - Chemistry and C hemistry - challengeOrdered By: Rochelle Farris on 04-28-2024 Glucose Ql (U) Negative [facility] - Microbiology an d Antimicrobial susceptibilityOrdered By: Rochelle Farris on 04-28-2024 HBV surface Ag Ql (S) Non-Reactive Nonreactive [facility] Comment on above: Reactive: Presumptiv e evidence of HBV. Repeatedly reactive samples must be confirmed using a neutralization test ([employer] HBsAg Confirmatory Test)Non-Reactive: HBsAg not detected; does not exclude the possibility of exposure to HBV Laboratory - UrinalysisOrder ed By: Rochelle Farris on 04-28-2024 Protein Ql (U) Negative [facility] Lupus anticoagulant neutrali zation dilute phospholipid time in platelet poor plasmaOrdered By: Rochelle Farris on 04-28-2024 Prothrombin Time Diluted 34.8 sec 0.0-47.6 [facility] Lupus anticoagulant-sensitiv e activated partial thromboplastin timeOrdered By: Rochelle Farris on 04-28-2024 Lupus Anticoagulant APTT 31.0 sec 0.0-43.5 [facility] Lymphocytes Auto (Unsp spec) [#/Vol]Ordered By: Rochelle Farris on 04-28-2024 Lymphocytes (Bld) [#/Vol] 2.12 10*3/uL 0.83-4.51 [facility] Lymphocytes/100 WBC Auto (Un sp spec)Ordered By: Rochelle Farris on 04-28-2024 Lymphocytes/100 WBC (Bld) 23.4 % 19-41 [facility] MCV (mean corpuscular volume ) determinationOrdered By: Rochelle Farris on 04-28-2024 MCV (RBC) [Entitic vol] 93.2 fL 81-99 [facility] Mean corpuscular hemoglobin (MCH) determinationOrdered By: Rochelle Farris on 04-28-2024 MCH (RBC) [Entitic mass] 31.8 pg 27.0-32.0 [facility] Mean corpuscular hemoglobin concentration (MCHC) determinationOrdered By: Rochelle Farris on 04-28-2024 MCHC (RBC) [Mass/Vol] 34.1 g/dL 32-36 [facility] Mean platelet volume determi nationOrdered By: Rochelle Farris on 04-28-2024 Platelet mean volume (Bld) [Entitic vol] 8.7 fL 6.2-12.0 [facility] Monocyte percentageOrdered B y: Rochelle Farris on 04-28-2024 Monocytes/100 WBC (Bld) 6.3 % 0-10 [facility] Neutrophil percentageOrdered By: Rochelle Farris on 04-28-2024 Neutrophils/100 WBC (Bld) 68.6 % 47-70 [facility] No Panel InformationOrdered By: Rochelle Farris on 04-28-2024 HIV (1&2) Antibody Non-Reactive Nonreactive [facility] Nucleated red blood cell per centageOrdered By: Rochelle Farris on 04-28-2024 Nucleated RBC/100 WBC (Bld) [Ratio] 0 % 0-5 [facility] [employer] Office Visit Reporton 04-28-2024 [employer] Office Visit Report [facility] [address], [address] [place] [address] OFFICE VISIT Date of Service: 04/28/24 MR#: [id number] Acct: [id number] Name: MAIDA BELL Rep #: [id number] : 1995 Provider: Dr. Rochelle love MD Age/Sex: 28/F Location: [facility] Status: Signed Intake Vital Signs 04/03/24 09:16 04/28/24 13:57 Height 5 ft 4 in 5 ft 4 in Weight: 118 lb 4 oz 124 lb BMI 20.2 21.2 BP 117/79 131/74 H Intake Visit Reasons: 12 wk OB [employer] Required: No Is patient in pain?: No Allergies Penicillins Allergy (Intermediate, Verified 04/28/24 13:59) Rash Medications ???Medication ???Instructions ???Recorded ???Confirmed ???Type PNV 178-FA 180 mcg-om3 35 mg-dha tab PO 03/24/24 04/28/24 History 25 mg-epa 5 mg-fish oil chew tablet pyridoxine (vitamin B6) 10 mg 10 mg PO QDAY PRN 04/03/24 5 History tablet Last Menstrual Period: 02/02/24 Zika: Zika virus screening: Negative : No PFSH PFSH Medical History Hx of chlamydia infection Surgical History [place] teeth extracted Family History Grandmother Diabetes Paternal Mother Breast cancer, Onset Age: 46 genetic Grandfather COPD (chronic obstructive pulmonary disease) Paternal- smoker Social History adopted: No household members: significant other housing: house current occupational status: employed current occupation: [employer] current occupational exposures/hazards: No pets and animals: Yes pets and animals: dog(s) history of recent travel: No sexually active: Yes Smoking Status: Never smoker alcohol intake: current alcohol intake frequency: 0-2 drinks per day Alcohol type: beer details: Stopped 02/14/24- No alcohol since substance use type: does not use well-balanced diet: daily or most days caffeine: Yes (occasional energy drink) Type: other Number of servings: 1 eating out: rarely or never during the past year weight has: remained stable what type of physical activity do you participate in: none david/mandaeism: None seatbelt use: always do you feel safe at home: Yes additional social history: BF [employer] History 1 Elective abortions Hx Para 0 Spontaneous abortions Hx # Term Pregnancies Ectopic pregnancies Hx # Pregnancies Multiple births # of living children HPI 12 wk OB Details: MAIDA BELL is a 28 year old who presents for routine OB visit. OB Visit EVE Calculator Estimated Delivery Date Method Current WG Current Estimate 11/08/24 LMP (Certain) 12w 2d Expected Delivery Route/Plan Labor Preferences- CB/BF classes: [] labor support person: [] labor intervention preferences: [] pain management options preferred: [] cut cord/dad catch: [] : [] PP control planned: [] discussed possible routes of delivery and associated risks: [] special requests: [] Specific Issue/Plans Covid status: [] Flu vaccine: [] Tdap vaccine: [] Rhogam: [] LARC form signed: [] Problem list reviewed and updated with the most current plan of care details and appropriate orders placed. Relevant counseling for the gestational age provided. Continue routine care and follow up unless otherwise noted in visit notes/problem list details Initial Weight: Not Recorded Date -???-???-???-???-???-??? -???-???-???-???-???-??? - EGA Weight BP Urine Prot -???-???-???-???-???-??? -???-???-???-???-???-??? - Glucose FHR FuHt Pres Dilation -???-???-???-???-???-??? -???-???-???-???-???-??? - Effaced St Visit Note 04/03/24 -???-???-???-???-???-??? -???-???-???-???-???-??? - 8w 5d 118 lb 4 oz 117/79 -???-???-???-???-???-??? -???-???-???-???-???-??? - 170 -???-???-???-???-???-??? -???-???-???-???-???-??? - SM- CRL 1cm cons with 8w5d 04/28/24 -???-???-???-???-???-??? -???-???-???-???-???-??? - 12w 2d 124 lb 131/74 Negative -???-???-???-???-???-??? -???-???-???-???-???-??? - Negative 150 -???-???-???-???-???-??? -???-???-???-???-???-??? - Sm- co right lower back discomfort going down into her buttox. ACOG First Trimester First Trimester: Desire for , Alcohol, Tobacco Cessation, Illicit/Recreational Drug/Substance Use, Intimate Partner Violence, Barriers to care, Unstable Housing, Communication Barriers, Environmental/Work Hazards, Anticipated Course of Care, Toxoplasmosis Precations, Use of Any medications, Sexual activity, Exercise, Dental Care, Sauna/Hot tub use, Seat Belt use, Childbirth classes/Hospital facilities, Travel, Indications (more content not included)... Normal [facility] Platelet countOrdered By: Alex Farris on 04-28-2024 Platelets (Bld) [#/Vol] 249 10*3/uL 150-450 [facility] RBC Auto (Bld) [#/Vol]Ordere d By: Rochelle Farris on 04-28-2024 RBC (Bld) [#/Vol] 3.55 10*6/uL Low 4.2-5.[address] [facility] Rubella immune status determ ination by IgG antibody assayOrdered By: Rochelle Farris on 04-28-2024 Rubella IgG Antibody REAC Nonreactive [facility] Comment on above: Antibody Result: Int erpretationNon-Reactive: Non-ImmuneReactive: ImmuneThe following results were obtained with the [employer] Rubella IgG assay. Results from assays of other manufacturers cannot be used interchangeably. Serum beta 2 glycoprotein 1 IgA antibody detectionOrdered By: Rochelle Farris on 04-28-2024 Beta 2 glycoprotein 1 IgA Ql (S) <9 0-25 [facility] Comment on above: Result Units: GPI Ig A unitsThe reference interval reflects a 3SD or 99th percentileinterval, which is thought to represent a potentiallyclinically significant result in accordance with theInternational Consensus Statement on the classificationcriteria for definitive antiphospholipid syndrome (APS). JThromb Haem 2006;4:295-306. Serum beta 2 glycoprotein 1 IgG antibody detectionOrdered By: Rochelle Farris on 04-28-2024 Beta 2 glycoprotein 1 IgG Ql (S) <9 0-20 [facility] Comment on above: Result Units: GPI Ig G unitsThe reference interval reflects a 3SD or 99th percentileinterval, which is thought to represent a potentiallyclinically significant result in accordance with theInternational Consensus Statement on the classificationcriteria for definitive antiphospholipid syndrome (APS). JThromb Haem 2006;4:295-306. Serum beta 2 glycoprotein 1 IgM antibody detectionOrdered By: Rochelle Farris on 04-28-2024 Beta 2 glycoprotein 1 IgM Ql (S) <9 0-32 [facility] Comment on above: Result Units: GPI Ig M unitsThe reference interval reflects a 3SD or 99th percentileinterval, which is thought to represent a potentiallyclinically significant result in accordance with theInternational Consensus Statement on the classificationcriteria for definitive antiphospholipid syndrome (APS). JThromb Haem 2006;4:295-306. Serum cardiolipin IgG antibo dy assay by immunoassay (units/volume)Ordered By: Rochelle Farris on 04-28-2024 Cardiolipin IgG IA Qn (S) < 9 GPL U/mL 0-14 [facility] Comment on above: Negative: <15 Indete rminate: 15 - 20 Low-Med Positive: >20 - 80 High Positive: >80 Serum cardiolipin IgM antibo dy assayOrdered By: Rochelle Farris on 04-28-2024 Anti-Cardiolipin IgM Antibody < 9 MPL U/mL 0-12 [facility] Comment on above: Negative: <13 Indete rminate: 13 - 20 Low-Med Positive: >20 - 80 High Positive: >80Performed at: [facility] [id number] Director: Kavita Macias MD, Phone: [phone] at: [facility] [id number] Director: Wan Turpin PhD, Phone: [phone] T. pallidum abOrdered By: Alex Farris on 04-28-2024 Syphilis Total Antibody Non-Reactive Nonreactiv e [facility] Thrombin timeOrdered By: Marcelo Farris on 04-28-2024 Thrombin time Coag (PPP) [Time] 17.0 sec 0.0-23.0 [facility] Thrombin time Coag (PPP) [Ti me]Ordered By: Rochelle Farris on 04-28-2024 Thrombin Time 17.0 sec 0.0-23.0 [facility] Type AND Screenon 04-28-2024 ABO and Rh group Nom (Bld) Blood group A Rh(D) positive Normal [facility] Comment on above: Order Comment: PN Performed By: #### L 7400.0353, L7000.1800, M100.2200 #### [facility] [address] [facility]. [place], [place], [id number] White blood cell (WBC) count Ordered By: Rochelle Farris on 04-28-2024 WBC (Bld) [#/Vol] 9.1 10*3/uL 4.4-11.0 [facility] dRVVT Coag (PPP) [Time]Order ed By: Rochelle Farris on 04-28-2024 Dilute Stan Viper Venom (Lupus) 28.7 sec 0.0-47.0 [facility] PAP I-G w/rfx hrHPV-Aptimaon 04-07-2024 ADEQ Comment Normal . [facility] Comment on above: Order Comment: Speci men Comment: [id number] Specimen Comment: Source.............Cervix;Endocervix Specimen Comment: LMP / Prev Treat...[id number] Specimen Comment: Other.............. Specimen Comment: No. of containers..01 ThinPrep Vial Result Comment: Sati sfactory for evaluation. Endocervical and/or squamous metaplastic cells (endocervical component) are present. Performed By: #### L 7400.0353, L7000.1800, M100.2200 #### [facility] [address] [place], [place], [id number] COMM . Normal . [facility] Comment on above: Order Comment: Speci men Comment: [id number] Specimen Comment: Source.............Cervix;Endocervix Specimen Comment: LMP / Prev Treat...[id number] Specimen Comment: Other.............. Specimen Comment: No. of containers..01 ThinPrep Vial Performed By: #### L 7400.0353, L7000.1800, M100.2200 #### [facility] [address] [place], [place], [id number] COMMENT Comment Normal . [facility] Comment on above: Order Comment: Speci men Comment: [id number] Specimen Comment: Source.............Cervix;Endocervix Specimen Comment: LMP / Prev Treat...[id number] Specimen Comment: Other.............. Specimen Comment: No. of containers..01 ThinPrep Vial Result Comment: This liquid based ThinPrep(R) pap test was screened with the use of an image guided system. Performed By: #### L 7400.0353, L7000.1800, M100.2200 #### [facility] [address] [place], [place], [address] DIAG Comment Normal . [facility] Comment on above: Order Comment: Speci men Comment: [id number] Specimen Comment: Source.............Cervix;Endocervix Specimen Comment: LMP / Prev Treat...[id number] Specimen Comment: Other.............. Specimen Comment: No. of containers..01 ThinPrep Vial Result Comment: NEGA TIVE FOR INTRAEPITHELIAL LESION OR MALIGNANCY. CELLULAR CHANGES ASSOCIATED WITH INFLAMMATION ARE PRESENT. Performed By: #### L 7400.0353, L7000.1800, M100.2200 #### [facility] [address] [place], [place], [id number] HPV RFLX Comment Normal . [facility] Comment on above: Order Comment: Speci men Comment: [id number] Specimen Comment: Source.............Cervix;Endocervix Specimen Comment: LMP / Prev Treat...[id number] Specimen Comment: Other.............. Specimen Comment: No. of containers..01 ThinPrep Vial Result Comment: The HPV DNA reflex criteria were not met with this specimen result therefore, no HPV testing was performed. Performed at: [address] [id number] Aircraft Air Conditioning Mechanic: Janeen Mitchell MD, Phone: [phone] Performed By: #### L 7400.0353, L7000.1800, M100.2200 #### [facility] [address] [place], [place], [address] PAPSMR Comment Normal . [facility] Comment on above: Order Comment: Speci men Comment: [id number] Specimen Comment: Source.............Cervix;Endocervix Specimen Comment: LMP / Prev Treat...[id number] Specimen Comment: Other.............. Specimen Comment: No. of containers..01 ThinPrep Vial Result Comment: The Pap smear is a screening test designed to aid in the detection of premalignant and malignant conditions of the uterine cervix. It is not a diagnostic procedure and should not be used as the sole means of detecting cervical cancer. Both false-positive and false-negative reports do occur. Performed By: #### L 7400.0353, L7000.1800, M100.2200 #### [facility] [address] [place], [address] PERFORM Comment Normal . [facility] Comment on above: Order Comment: Speci men Comment: [id number] Specimen Comment: Source.............Cervix;Endocervix Specimen Comment: LMP / Prev Treat...[id number] Specimen Comment: Other.............. Specimen Comment: No. of containers..01 ThinPrep Vial Result Comment: Jamaal Valente, Fryline Attendant (ASCP) Performed By: #### L 7400.0353, L7000.1800, M100.2200 #### [facility] [address] [place], [address] Chlamydia/GC ALISON aptimaon CHLAMY,NUC ACID Negative Normal Negative [facility] Comment on above: Performed By: #### L 7400.0353, L7000.1800, M100.2200 #### [facility] [address] [place], [address] GC BY NUC ACID Negative Normal Negative [facility] Comment on above: Result Comment: Perf ormed at: =G - [facility] [place] [id number] Aircraft Air Conditioning Mechanic: Janeen Mitchell MD, Phone: [phone] Performed By: #### L 7400.0353, L7000.1800, M100.2200 #### [facility] [address] [place], [address] Urine Cultureon 04-04-2024 URC Culture exhibits no growth. Normal [facility] Comment on above: Performed By: #### L 7400.0353, L7000.1800, M100.2200 #### [facility] [address] [place], [address] C. trachomatis rRNA ALISON+prob e Ql (Unsp spec)Ordered By: Rochelle Farris on 04-03-2024 Chlamydia DNA (ALISON) Negative Negative [facility] Cervical or vagninal specime n microscopic examination by cytology stain (reported asOrdered By: Rochelle Farris on 04-03-2024 Cytology report Cyto stain Doc (Cvx/Vag) Comment . [facility] Comment on above: The Pap smear is a s creening test designed to aid in thedetection of premalignant and malignant conditions of theuterine cervix. It is not a diagnostic procedure andshould not be used as the sole means of detecting cervicalcancer. Both false-positive and false-negative reports dooccur. Chlamydia trachomatis rRNA d etection by probe and target amplification methodOrdered By: Rochelle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 AP4-a2DQ62.21 % LVDd 4.4 cm F: 3.8 - 5.2EF AP2-a2DQ59.38 % LVDs 3.07 cm F: 2.2 - 3.5EF BP-a2DQ57.93 % Aortic Root 2.66 cm F: 2.7 - 3.6PIUD38 mL Aortic Root Index1.7 cm/m2LV Xdouzf47.78 mL F: 46 - 106 Ascending Aorta 3.06 cm F: 2.3 - 3.1LV Volume Index57.27 mL/m2 F: 29 - 61 Ascending Aorta Index: 2.0 cm/m2LA Inpfqw57.6 mL Left Atrium 2.90 cm F: 2.7 - 3.8LA Volume Index19.74 mL/m2 (M/F) 16-34 LVOT1.99 cm (M/F) 1.5-2.5RV Major 2.44 cm TAPSE 1.4 <1.7 cmRV Minor5.00 cm IVC1.3 cmRVID Base (AP4)2.33 cm (M/F) 2.5-4.1 Right Atrium 3.7 cm (M/F) 2.9-4.5 LV Diastology E/A Ratio 3.1Septal E'0.13 (<.07 m/s) LAT E'0.20 (<.10 m/s) Aortic Valve LVOT Max0.98 (0.7-1.1 m/s)LVOT VTI19.06 cm AV DI0.83 (>0.25)AoV Peak Pb.1.07 (0.5-1.3 m/s) AV Vmean 0.74 m/Alfonso Peak GR.4.62 mmHg AO Mean GR.2.45 (<5 mmHg)AO VTI22.9 (18-25 cm) EUGENIO (VTI)2.59 (2.5-4.5 cm2) Mitral Valve MV E Max Pb.1.1 (0.4-1.3 m/s)MV A Velocity0.35 (0.4-1.3 m/s) E/A Ratio3.09MV PHT83.85 ms MVA PHT2.62 cm2MV Dec Spink 517.53 cm/s2 MV Decel. Fybs317.38 (160-240 ms) Pulmonary Valve PV Peak Velocity1.0 (0.5-1.5 m/s)SC End VMAX1.5 m/s PV maxPG3.8 mmHgPV Vmax1.0 m/s SC End PG 1.87 mmHg Tricuspid Valve TR P. Velocity2.06 m/sRAP Estimate3 mmHg RVSP19.93 mmHgTR maxPG 16.93 mmHg 10-20 Media [facility] 07-28-2019 [facility] Telephone (SYNN) -------- MAIDA BELL ([id number]) 1995 F Date Time Provider Department 07/28/19 EFRAÍN GUPTAGerardo During your visit today, we recorded the following information about you: Alvin Potter RN, RN 07/28/2019 9:25 AM Signed Phoned and spoke to the patient regarding her message about having chest pain. She said it's her typical chest pain that she normally has that she spoke to Bairon Cazares about. She will reschedule her appoint for echo and tilt soon. Allergies As of Date: 07/28/2019 Noted Allergy Reaction CLINDAMYCIN 07/21/2014 2 - Rash PENICILLINS 07/21/2014 2 - Rash Date Reviewed: 06/22/2019 Reviewed by: Rosanne (Anival) ANIVAL Clemens - Fully Assessed Reason for Visit: Returning Patient's Call [408] Prescriptions as of 07/28/2019 Sig: PERFLUTREN LIPID MICROSPHERES* Inject 1.3 mL intravenously a* CYCLOBENZAPRINE 5 MG TABLET Take 1 tablet by mouth every * ALBUTEROL SULFATE HFA 90 MCG/* Inhale 2 Puffs as instructed * Problem List As Of Date 07/28/2019 Noted Resolved Anxiety [F41.9] Fibromyalgia [M79.7] Exercise-induced asthma [J45.990] GERD (gastroesophageal reflux disease) [K21.9] Total bilirubin, elevated [R17] 11/20/2014 Near syncope [R55] 11/23/2014 Orthostatic hypotension [I95.1] 01/24/2015 POTS (postural orthostatic tachycardia syndrome*01/24/2015 Encounter Status:Closed by ALVIN POTTER on 07/28/19 [facility] MAIDA BELL ([id number]) 1995 F Date Time Provider Department 07/27/19 EFRAÍN GUPTA During your visit today, we recorded the following information about you: Ericka Zaragoza 07/27/2019 8:46 AM Signed July 27, 2019 [id number] Patient Name: Maida Bell Contact Information: [phone] (home) [phone] (cell) Reason For Call: Other Issue: Patient has appointments for the tilt table test and an echo, cannot find a lab close by that does the coronagvirus test and with her job schedule it would be hard for her to drive in here for it, there is a lab that does the coronavirus antibody test and wonders if that would work and if so please place orders. Physician:MD Ericka Berry Coord Alvin Potter, RN, RN 07/28/2019 9:12 AM Signed Phoned and spoke to the patient and she stated that she would not be able to come up to get the covid test before the test so she will rescheduled when she can get off work to do both. Allergies As of Date: 07/27/2019 Noted Allergy Reaction CLINDAMYCIN 07/21/2014 2 - Rash PENICILLINS 07/21/2014 2 - Rash Date Reviewed: 06/22/2019 Reviewed by: Rosanne (Rn) Jayleen RN - Fully Assessed Reason for Visit: Coronavirus test [Other] Returning Patient's Call [408] Reason For Visit History Recorded Prescriptions as of 07/27/2019 Sig: PERFLUTREN LIPID MICROSPHERES* Inject 1.3 mL intravenously a* CYCLOBENZAPRINE 5 MG TABLET Take 1 tablet by mouth every * ALBUTEROL SULFATE HFA 90 MCG/* Inhale 2 Puffs as instructed * Problem List As Of Date 07/27/2019 Noted Resolved Anxiety [F41.9] Fibromyalgia [M79.7] Exercise-induced asthma [J45.990] GERD (gastroesophageal reflux disease) [K21.9] Total bilirubin, elevated [R17] 11/20/2014 Near syncope [R55] 11/23/2014 Orthostatic hypotension [I95.1] 01/24/2015 POTS (postural orthostatic tachycardia syndrome*01/24/2015 Encounter Status:Closed by ALVIN POTTER on 07/28/19 [facility] CNOVon 06-22-2019 CNOV Office Visit (SYNCMN ) -------- MAIDA BELL ([id number]) 1995 F Date Time Provider Department 06/22/19 4:30 PM EFRAÍN GUPTA SYNCMN During your visit today, we recorded the following information about you: Weight Height 52.8 kg 1.626 m Rosanne Clemens, ANIVAL, RN 06/22/2019 4:25 PM Signed [facility] [place] [facility] Department of Cardiovascular Medicine SECTION OF CARDIAC PACING and ELECTROPHYSIOLOGY OUTPATIENT VISIT DATE June 22, 2019 PRIMARY CARE PHYSICIAN: Kojo Clayton MD [address] [place] [address] REFERRING PHYSICIAN: Efraín Gupta MD [address] [facility] [id number] NURSING INTAKE HISTORY: Ms. Bell is a 23 year old female who is seen today for follow up for POTS and orthostatic hypotension. She has a history of anxiety, fibromyalgia, gerd, palpitations, and syncope. She was last seen in office by Dr. Gupta on 07/09/2016. Her symptoms improved but in April she had an episode of heart racing for five days straight. The urgent care sent her to the hospital for a low blood pressure and high heart rate. She was given IV fluids. She has had two episodes of syncope. She had tunnel vision, lightheaded, nauseous, and then lost consciousness. She also says she has passed out in bed 2-3 times in the past few months (doesn't remember going to bed, wakes up hours later). She is often dizzy at work, when she gets up, or after a hot shower. She feels palpitations frequently but is used to them. She no longer wears compression stockings. She maintains an increased salt and fluid intake. She was exercising until the gyms closed. She experiences chest pressure and soreness after her heart stops racing. It can last a few days (08/27). She mentions that she still has numbness in the tip of her R index finger since her hospital visit. She denies shortness of breath, cough, edema, or PND. PAST MEDICAL HISTORY Diagnosis Date - Anxiety - Exercise-induced asthma - Fibromyalgia - GERD (gastroesophageal reflux disease) PAST SURGICAL HISTORY Procedure Laterality Date - NONE SOCIAL HISTORY Social History Tobacco Use - Smoking status: Former Smoker Years: 0.50 Types: Cigarettes Last attempt to quit: 07/26/2013 Years since quittin.9 - Smokeless tobacco: Never Used Substance Use Topics - Alcohol use: No Frequency: 2-3 times a week Drinks per session: 3 or 4 Binge frequency: Less than monthly - Drug use: No FAMILY HISTORY Problem Relation Age of Onset - Diabetes Paternal Grandmother - Diabetes Paternal Grandfather - None Mother - None Father ALLERGIES: ALLERGIES Allergen Reactions - Clindamycin Rash - Penicillins Rash MEDICATIONS: cyclobenzaprine (FLEXERIL) 5 mg tablet Take 1 tablet by mouth every 8 hours as needed for Muscle Spasm. albuterol HFA (PROVENTIL HFA) 90 mcg/actuation inhaler Inhale 2 Puffs as instructed as needed. LMP 06/13/2016 BP w/Orthostatic Vitals Date and Time Orthostatic BP Orthostatic Pulse BP Pulse BP Position BP Site BP Cuff Size 06/22/19 1557 130/83 82 -- -- Standing -- -- 06/22/19 1553 115/69 70 -- -- Sitting -- -- 06/22/19 1552 116/69 64 -- -- Supine Left Arm Regular Adult Tete Dowell RN Efraín Gupta MD 06/22/2019 4:29 PM Addendum I personally reviewed the above information as obtained by the nurse and confirmed the findings. Additional HPI: 23 year old female with a past medical history of: PAST MEDICAL HISTORY Diagnosis Date - Anxiety - Exercise-induced asthma - Fibromyalgia - GERD (gastroesophageal reflux disease) Symptom history as of 12/02/2014: ? palpitations couple times per week, lasting seconds to couple minutes, throughout the day, chest is sore afterwards can occur while lying down no known postural component can be trigerred by anxious situations, relieved somewhat with xanax started summer 2013, parents getting a separation at that time ? syncope in July 2014, unknown how long, while returning a Holter another episode years ago while cheerleading during basketball game ? ? Prior testing has included: ? OSH Holter: results unknown ? Tilt 11/2014: Impressions: Tilt test terminated prematurely at patient's request for severe lightheadedness ,chest pain. She had moderate late sinus tachycardia, labile blood pressure with frequent systolic and diastolic orthostasis but no cardiac slowing, arrhythmias, syncope, loss of consciousness with mild ST and T-wave changes including inferior T wave inversion resolving in recovery ? My notes: BP 102 to 84 to 111 mmHg then stopped at 22 minutes. HR 62 to 103 then stopped at 22 minutes. Orthostatic hypotension and accentuated postural tachycardia / Postural Tachycardia Syndrome (POTS) ? Cardionet 12/2014: sinus, sinus arrhythmia, sinus tachycardia, PAC, noise limits interpretation of PVC ? TTE 01/2015: CONCLUSIONS: - Exam indication: Syncope - The left ventricle is normal in size. Left ventricular systolic function is normal. EF = 55 ? 5% (visual est.) Baseline left ventricular diastolic function is normal. EF 50-55%. - The right ventricle is normal in size. Right ventricular systolic function is normal. - The patient has not had a prior CC echocardiographic exam for comparison. ? BV/Hemo 02/2015: Blood Volume Test Results: Total Blood Volume: 3730, -5.8% From [place] Red Cell Volume: 1129, -20.9% From [place] Plasma Volume: 2601, 2.7% From [place] HCT: 33.6, Normal: 37-47%? In the supported head up position at 70 degree with legs down: The CPV/BV ratio decreased by 29.68%. In response, the BP increased to 102/62, and the HR increased to 69 BPM, with an adequate increase in the TPR (28 u.M2). The cardiac index decreased to 2.691 L/min/M2. The stroke volume decreased to 62 ml. The MTT was rapid at 6.56 sec. Interval History as taken today 06/22/2019 : she had been doing relatively well for a couple years until end Mar/beginning April 2019. no preceding illness. 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 BP w/Orthostatic Vitals Date and Time Orthostatic BP Orthostatic Pulse BP Pulse BP Position BP Site BP Cuff Size 06/22/19 1557 130/83 82 -- -- Standing -- -- 06/22/19 1553 115/69 70 -- -- Sitting -- -- 06/22/19 1552 116/69 64 -- -- Supine Left Arm Regular Adult General/Constitutional: no acute distress, well appearing, vital signs stable Psych: alert and oriented Skin: intact Eyes: EOMI ENT: mucous membranes moist Cardiovascular: regular rate and rhythm, normal S1 and S2 without S3 or S4, no significant murmurs, no significant lower extremity edema, no carotid bruit Resp: lungs generally clear to auscultation bilaterally, lungs with equal air entry bilaterally GI: abdomen soft, nontender Neuro: no obvious focal motor deficits Musculoskeletal: normal musculature Lab Results Component Value Date/Time HB 12.3 07/21/2014 04:27 PM K 3.7 03/14/2016 04:35 PM K 3.3 (L) 07/21/2014 04:27 PM CREAT 0.67 (L) 07/21/2014 04:27 PM TSH 1.110 04/16/2016 05:00 PM TSH 1.890 12/02/2014 01:55 PM ECG 06/22/2019 : sinus 62 bpm, sonal 118, qrs 86, qt 410/416 Assessment and Recommendations #. Orthostatic Hypotension and Postural Tachycardia Syndrome (POTS) . Symptoms of syncope and palpitations. One syncopal episode in July 2014 and one remote episode years prior. Tilt Table Test 11/2014 showed a decrease in blood pressure/oscillation from 102 to 84 to 111 mmHg, heart rates increased from 62 to 103 bpm; the test was stopped early at 22 minutes with findings consistent with orthostatic hypotension and accentuated postural tachycardia / Postural Tachycardia Syndrome (POTS) . Cardionet monitor 12/2014 showed sinus, sinus arrhythmia, sinus tachycardia, PAC, noise limits interpretation of PVC. Echo 01/2015 showed normal LV systolic function.? Blood volume and hemodynamic testing 02/2015 showed total blood volume at lower end of normal and moderate venous pooling.? Thyroid studies 03/2016 within normal limits. QSART and Autonomic Reflex Testing were ordered but were not able to be done due to insurance issues. She wasn't able to do cardiac rehab due to work / time restrictions. Radha didn't help so she stopped it. Today 06/22/2019: Symptoms worsened in MarchApril 2019. We discussed the possible benefit of a repeat 45-minute passive Tilt Table Test with [id number] blood pressure measurement and the patient agrees. Will repeat the echocardiogram as well. Advised that due to the ongoing COVID19 situation, they should call in 1 to 2 weeks regarding scheduling. #. Head pressure / Headache. Follow up with PCP or Neurology. The following are also recommended and were discussed with the patient: -Sit down or lie down when symptomatic -Local / state laws should be followed regarding driving. Otherwise, general recommendations include: -No private driving if symptoms occur while driving -No private driving for 1 month following an episode of syncope. [ACC/AHA Syncope Guidelines 2017. PMID [id number]] -If syncope is frequent (more than 6 episodes in 1 year), then no private driving until symptoms are controlled. [ACC/AHA Syncope Guidelines 2017. PMID [id number]] -For professional or commercial driving, driving recommendations may differ depending upon company or governmental regulations. Efraín Gupta MD, [facility] Cardiac Electrophysiology [facility] Thank you for your visit today. Our hope is to be able to provide you with further appropriate evaluation of your symptoms in order to arrive at a diagnosis, and to provide guidance for you and your primary physician as you continue to work together for your ongoing care. Our hope is to help guide you towards the best of health. Referring Provider: EFRAÍN GUPTA [[id number]] Allergies As of Date: 06/22/2019 Noted Allergy Reaction CLINDAMYCIN 07/21/2014 2 - Rash PENICILLINS 07/21/2014 2 - Rash Date Reviewed: 06/22/2019 Reviewed by: Rosanne Galindo) ANIVAL Clemens - Fully Assessed Primary Visit Diagnosis:Transient loss of consciousness [R55] Order(s):TILT TABLE EVALUATION [18469DRT] Order #: [id number]: 1 ECHO [[id number]] Order #: [id number]: 1 FUTURE perflutren lipid microspheres (DEFINITY) 1.1 mg/mL injection (to be provided with echo procedure)Inject 1.3 mL intravenously as directed. Administration Instructions: If no IV access, insert saline lock prior to administering contrast. Discontinue saline lock post exam. If patient has central line or IVAD, may access for administration according to line specific nursing protocol. Once exam is complete, flush line and de-access per line specific nursing protocol. Diluted IV Bolus: Dilute 1.3 ml of Definity with 8.7 ml of preservative-free saline.Disp: 1.3 mLRfl: 0 Prescriptions as of 06/22/2019 Sig: CYCLOBENZAPRINE 5 MG TABLET Take 1 tablet by mouth every * ALBUTEROL SULFATE HFA 90 MCG/* Inhale 2 Puffs as instructed * PERFLUTREN LIPID MICROSPHERES* Inject 1.3 mL intravenously a* Problem List As Of Date 06/22/2019 Noted Resolved Anxiety [F41.9] Fibromyalgia [M79.7] Exercise-induced asthma [J45.990] GERD (gastroesophageal reflux disease) [K21.9] Total bilirubin, elevated [R17] 11/20/2014 Near syncope [R55] 11/23/2014 Orthostatic hypotension [I95.1] 01/24/2015 POTS (postural orthostatic tachycardia syndrome*01/24/2015 Prescriptions ordered this encounter Disp Refills Start End PERFLUTREN LIPID MICROSPHERES 1.1 MG* 1.3 * 0 06/22/2019 06/21/2020 Class: In Office Route: INTRAVENOUS Sig: Inject 1.3 mL intravenously as directed. Administration Instructions: If no IV access, insert saline lock prior to administering contrast. Discontinue saline lock post exam. If patient has central line or IVAD, may access for administration according to line specific nursing protocol. Once exam is complete, flush line and de-access per line specific nursing protocol. Diluted IV Bolus: Dilute 1.3 ml of Definity with 8.7 ml of preservative-free saline. Encounter Status:Closed by EFRAÍN GUPTA MD on 06/22/19 [facility] ECG COMPLETEon 06-22-2019 ECG COMPLETE NAME : AICHA BELL PID : [id number] : 1995 Gender : Female Race : ORD : [id number] Procedure Date : Jun 22 2019 15:19:58 Edit Date : Jun 26 2019 08:48:02 Diagnosis:NORMAL SINUS RHYTHM NORMAL ECG Confirmed by LUDWIN STRATTON MD ([id number]) on 06/26/2019 8:47:57 AM Ventricular Rate : 62 BPM Atrial Rate : 62 BPM P-R Interval : 118 ms QRS Duration : 86 ms Q-T Interval : 410 ms QTC Calculation(Bazett) : 416 ms P [place] : 56 degrees R [place] : 69 degrees T [place] : 42 degrees Test Reason : Location : 314 : J14 3 Overread By : LUDWIN STRATTON MD Edited By : LUDWIN STRATTON MD Referred By : LIZETTE GUPTA Acquired by : ARJUN MOREL [facility] PROGRESSon 06-22-2019 PROGRESS HNO ID: [id number] Author: Efraín Gupta Service: ? Author Type: Physician Type: Progress Notes Filed: 06/22/2019 4:29 PM Note Text: I personally reviewed the above information as obtained by the nurse and confirmed the findings. Additional HPI: 23 year old female with a past medical history of: PAST MEDICAL HISTORY Diagnosis Date - Anxiety - Exercise-induced asthma - Fibromyalgia - GERD (gastroesophageal reflux disease) Symptom history as of 12/02/2014: ? palpitations couple times per week, lasting seconds to couple minutes, throughout the day, chest is sore afterwards can occur while lying down no known postural component can be trigerred by anxious situations, relieved somewhat with xanax started summer 2013, parents getting a separation at that time ? syncope in July 2014, unknown how long, while returning a Holter another episode years ago while cheerleading during basketball game ? ? Prior testing has included: ? OSH Holter: results unknown ? Tilt 11/2014: Impressions: Tilt test terminated prematurely at patient's request for severe lightheadedness ,chest pain. She had moderate late sinus tachycardia, labile blood pressure with frequent systolic and diastolic orthostasis but no cardiac slowing, arrhythmias, syncope, loss of consciousness with mild ST and T-wave changes including inferior T wave inversion resolving in recovery ? My notes: BP 102 to 84 to 111 mmHg then stopped at 22 minutes. HR 62 to 103 then stopped at 22 minutes. Orthostatic hypotension and accentuated postural tachycardia / Postural Tachycardia Syndrome (POTS) ? Cardionet 12/2014: sinus, sinus arrhythmia, sinus tachycardia, PAC, noise limits interpretation of PVC ? TTE 01/2015: CONCLUSIONS: - Exam indication: Syncope - The left ventricle is normal in size. Left ventricular systolic function is normal. EF = 55 ? 5% (visual est.) Baseline left ventricular diastolic function is normal. EF 50-55%. - The right ventricle is normal in size. Right ventricular systolic function is normal. - The patient has not had a prior CC echocardiographic exam for comparison. ? BV/Hemo 02/2015: Blood Volume Test Results: Total Blood Volume: 3730, -5.8% From [place] Red Cell Volume: 1129, -20.9% [facility] [place] Plasma Volume: 2601, 2.7% From [place] HCT: 33.6, Normal: 37-47%? In the supported head up position at 70 degree with legs down: The CPV/BV ratio decreased by 29.68%. In response, the BP increased to 102/62, and the HR increased to 69 BPM, with an adequate increase in the TPR (28 u.M2). The cardiac index decreased to 2.691 L/min/M2. The stroke volume decreased to 62 ml. The MTT was rapid at 6.56 sec. Interval History as taken today 06/22/2019 : she had been doing relatively well for a couple years until end Mar/beginning April 2019. no preceding illness. 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 BP w/Orthostatic Vitals Date and Time Orthostatic BP Orthostatic Pulse BP Pulse BP Position BP Site BP Cuff Size 06/22/19 1557 130/83 82 -- -- Standing -- -- 06/22/19 1553 115/69 70 -- -- Sitting -- -- 06/22/19 1552 116/69 64 -- -- Supine Left Arm Regular Adult General/Constitutional: no acute distress, well appearing, vital signs stable Psych: alert and oriented Skin: intact Eyes: EOMI ENT: mucous membranes moist Cardiovascular: regular rate and rhythm, normal S1 and S2 without S3 or S4, no significant murmurs, no significant lower extremity edema, no carotid bruit Resp: lungs generally clear to auscultation bilaterally, lungs with equal air entry bilaterally GI: abdomen soft, nontender Neuro: no obvious focal motor deficits Musculoskeletal: normal musculature Lab Results Component Value Date/Time HB 12.3 07/21/2014 04:27 PM K 3.7 03/14/2016 04:35 PM K 3.3 (L) 07/21/2014 04:27 PM CREAT 0.67 (L) 07/21/2014 04:27 PM TSH 1.110 04/16/2016 05:00 PM TSH 1.890 12/02/2014 01:55 PM ECG 06/22/2019 : sinus 62 bpm, sonal 118, qrs 86, qt 410/416 Assessment and Recommendations #. Orthostatic Hypotension and Postural Tachycardia Syndrome (POTS) . Symptoms of syncope and palpitations. One syncopal episode in July 2014 and one remote episode years prior. Tilt Table Test 11/2014 showed a decrease in blood pressure/oscillation from 102 to 84 to 111 mmHg, heart rates increased from 62 to 103 bpm; the test was stopped early at 22 minutes with findings consistent with orthostatic hypotension and accentuated postural tachycardia / Postural Tachycardia Syndrome (POTS) . Cardionet monitor 12/2014 showed sinus, sinus arrhythmia, sinus tachycardia, PAC, noise limits interpretation of PVC. Echo 01/2015 showed normal LV systolic function.? Blood volume and hemodynamic testing 02/2015 showed total blood volume at lower end of normal and moderate venous pooling.? Thyroid studies 03/2016 within normal limits. QSART and Autonomic Reflex Testing were ordered but were not able to be done due to insurance issues. She wasn't able to do cardiac rehab due to work / time restrictions. Mestinon didn't help so she stopped it. Today 06/22/2019: Symptoms worsened in MarchApril 2019. We discussed the possible benefit of a repeat 45-minute passive Tilt Table Test with [id number] blood pressure measurement and the patient agrees. Will repeat the echocardiogram as well. Advised that due to the ongoing COVID19 situation, they should call in 1 to 2 weeks regarding scheduling. #. Head pressure / Headache. Follow up with PCP or Neurology. The following are also recommended and were discussed with the patient: -Sit down or lie down when symptomatic -Local / state laws should be followed regarding driving. Otherwise, general recommendations include: -No private driving if symptoms occur while driving -No private driving for 1 month following an episode of syncope. [ACC/AHA Syncope Guidelines 2017. PMID [id number]] -If syncope is frequent (more than 6 episodes in 1 year), then no private driving until symptoms are controlled. [ACC/AHA Syncope Guidelines 2017. PMID [id number]] -For professional or commercial driving, driving recommendations may differ depending upon company or governmental regulations. Efraín Gupta MD, [facility] Cardiac Electrophysiology [facility] Thank you for your visit today. Our hope is to be able to provide you with further appropriate evaluation of your symptoms in order to arrive at a diagnosis, and to provide guidance for you and your primary physician as you continue to work together for your ongoing care. Our hope is to help guide you towards the best of health. [facility] PROGRESS HNO ID: [id number] Author: Rosanne (Rn) ANIVAL Clemens Service: ? Author Type: Registered Nurse Type: Progress Notes Filed: 06/22/2019 4:25 PM Note Text: [facility] [place] Gurpreet Brizuela Department of Cardiovascular Medicine SECTION OF CARDIAC PACING and ELECTROPHYSIOLOGY OUTPATIENT VISIT DATE June 22, 2019 PRIMARY CARE PHYSICIAN: Kojo Clayton MD [address] [place] [address] REFERRING PHYSICIAN: Efraín Gupta MD [address] [place] [id number] NURSING INTAKE HISTORY: Ms. Bell is a 23 year old female who is seen today for follow up for POTS and orthostatic hypotension. She has a history of anxiety, fibromyalgia, gerd, palpitations, and syncope. She was last seen in office by Dr. Gupta on 07/09/2016. Her symptoms improved but in April she had an episode of heart racing for five days straight. The urgent care sent her to the hospital for a low blood pressure and high heart rate. She was given IV fluids. She has had two episodes of syncope. She had tunnel vision, lightheaded, nauseous, and then lost consciousness. She also says she has passed out in bed 2-3 times in the past few months (doesn't remember going to bed, wakes up hours later). She is often dizzy at work, when she gets up, or after a hot shower. She feels palpitations frequently but is used to them. She no longer wears compression stockings. She maintains an increased salt and fluid intake. She was exercising until the gyms closed. She experiences chest pressure and soreness after her heart stops racing. It can last a few days (08/27). She mentions that she still has numbness in the tip of her R index finger since her hospital visit. She denies shortness of breath, cough, edema, or PND. PAST MEDICAL HISTORY Diagnosis Date - Anxiety - Exercise-induced asthma - Fibromyalgia - GERD (gastroesophageal reflux disease) PAST SURGICAL HISTORY Procedure Laterality Date - NONE SOCIAL HISTORY Social History Tobacco Use - Smoking status: Former Smoker Years: 0.50 Types: Cigarettes Last attempt to quit: 07/26/2013 Years since quittin.9 - Smokeless tobacco: Never Used Substance Use Topics - Alcohol use: No Frequency: 2-3 times a week Drinks per session: 3 or 4 Binge frequency: Less than monthly - Drug use: No FAMILY HISTORY Problem Relation Age of Onset - Diabetes Paternal Grandmother - Diabetes Paternal Grandfather - None Mother - None Father ALLERGIES: ALLERGIES Allergen Reactions - Clindamycin Rash - Penicillins Rash MEDICATIONS: cyclobenzaprine (FLEXERIL) 5 mg tablet Take 1 tablet by mouth every 8 hours as needed for Muscle Spasm. albuterol HFA (PROVENTIL HFA) 90 mcg/actuation inhaler Inhale 2 Puffs as instructed as needed. LMP 06/13/2016 BP w/Orthostatic Vitals Date and Time Orthostatic BP Orthostatic Pulse BP Pulse BP Position BP Site BP Cuff Size 06/22/19 1557 130/83 82 -- -- Standing -- -- 06/22/19 1553 115/69 70 -- -- Sitting -- -- 06/22/19 1552 116/69 64 -- -- Supine Left Arm Regular Adult Tete Dowell RN [facility] OBSOLETEon 05-13-2019 OBSOLETE Refill (FAMDNA) -------- MAIDA BELL ([id number]) 1995 F Date Time Provider Department 05/13/19 KOJO CLAYTON During your visit today, we recorded the following information about you: Sylvester Newton Ma 05/13/2019 8:10 AM Signed Pharmacy verified in Epic Patient has been identified by name and date of : Yes Patient aware RX will be sent to pharmacy. No need to notify patient. Patient phones for refill(s): Pending Prescriptions Disp Refills CYCLOBENZAPRINE 5 MG TABLET 30 tablet 5 Sig: Take 1 tablet by mouth every 8 hours as needed for Muscle Spasm. REN: No Date of last office visit : 04/20/2019 Date of next office visit : Visit date not found Last 2 Encounter Wt Readings: Date: Wt: 04/20/2019 53.1 kg (117 lb) 08/02/2017 51.5 kg (113 lb 9.6 oz) Not applicable Please advise. Sylvester Newton Ma Allergies As of Date: 05/13/2019 Noted Allergy Reaction CLINDAMYCIN 07/21/2014 2 - Rash PENICILLINS 07/21/2014 2 - Rash Date Reviewed: 04/20/2019 Reviewed by: Dayday Acharya - Fully Assessed Reason for Visit: Refill Request [94] Order(s):cyclobenzaprine (FLEXERIL) 5 mg tabletTake 1 tablet by mouth every 8 hours as needed for Muscle Spasm.Disp: 30 tabletRfl: 5 Prescriptions as of 05/13/2019 Sig: CYCLOBENZAPRINE 5 MG TABLET Take 1 tablet by mouth every * ALBUTEROL SULFATE HFA 90 MCG/* Inhale 2 Puffs as instructed * Problem List As Of Date 05/13/2019 Noted Resolved Anxiety [F41.9] Fibromyalgia [M79.7] Exercise-induced asthma [J45.990] GERD (gastroesophageal reflux disease) [K21.9] Total bilirubin, elevated [R17] 11/20/2014 Near syncope [R55] 11/23/2014 Orthostatic hypotension [I95.1] 01/24/2015 POTS (postural orthostatic tachycardia syndrome*01/24/2015 Prescriptions ordered this encounter Disp Refills Start End CYCLOBENZAPRINE 5 MG TABLET 30 t* 5 05/13/2019 Route: ORAL Sig: Take 1 tablet by mouth every 8 hours as needed for Muscle Spasm. Medications Discontinued During This Encounter cyclobenzaprine (FLEXERIL) 5 mg tabl* 30 t* 5 04/15/2018 05/13/2019 Route: ORAL Sig: Take 1 tablet by mouth every 8 hours as needed for Muscle Spasm. Disc: Reason for discontinue is not on file. Encounter Status:Closed by [facility] MAIDA BELL ([id number]) 1995 F Date Time Provider Department 05/11/19 EFRAÍN GUPTA During your visit today, we recorded the following information about you: Allergies As of Date: 05/11/2019 Noted Allergy Reaction CLINDAMYCIN 07/21/2014 2 - Rash PENICILLINS 07/21/2014 2 - Rash Date Reviewed: 04/20/2019 Reviewed by: Dayday Acharya - Fully Assessed Reason for Visit: Patient Update [1234] Prescriptions as of 05/11/2019 Sig: ALBUTEROL SULFATE HFA 90 MCG/* Inhale 2 Puffs as instructed * CYCLOBENZAPRINE 5 MG TABLET Take 1 tablet by mouth every * Problem List As Of Date 05/11/2019 Noted Resolved Anxiety [F41.9] Fibromyalgia [M79.7] Exercise-induced asthma [J45.990] GERD (gastroesophageal reflux disease) [K21.9] Total bilirubin, elevated [R17] 11/20/2014 Near syncope [R55] 11/23/2014 Orthostatic hypotension [I95.1] 01/24/2015 POTS (postural orthostatic tachycardia syndrome*01/24/2015 Encounter Status:Closed by ROSANNE CLEMENS on 05/11/19 [facility] CNOVon 04-20-2019 CNOV Office Visit (FAMDNA ) -------- MAIDA BELL ([id number]) 1995 F Date Time Provider Department 04/20/19 11:00 AM KOJO FORD FAMDNA During your visit today, we recorded the following information about you: Pulse Blood pressure Weight Height 63/minute 116/73 53.1 kg 1.626 m Dayday Acharya 04/20/2019 11:53 AM Signed HPV VACCINE(1 - Female 2-dose series) due on 2005 SPIROMETRY due on 2012 HIV SCREENING due on 2012 PAP TESTING due on 08/01/2015 DTAP,TDAP,TD(7 - Td) due on 06/17/2018 INFLUENZA(1) due on 10/19/2018 Kojo Ford MD 04/20/2019 7:05 PM Signed Subjective: Patient is here for emergency department visit from [facility]. Patient has history of pots. She indicates that she has had 3 weeks of shortness of breath and chest discomfort seemingly to last . She notes this when she's laying on the right side as well associated with shortness of breath. She is notices it at work when she has been doing exertional things. She indicates her heart races at times. She has not been taking any medications for this. She went to the emergency department where workup was done on April 14. D-dimer was elevated and therefore CT of the chest was done. Pulmonary embolism was rulled out. Remainder of laboratory studies were unremarkable. Patient was diagnosed with costochondritis and placed on a Medrol Dosepak. She has finished this. She does have a history of the pots diagnosed in 2015 with a positive tilt table test. She is seeing her consignee again soon. There is been some question about whether to start Midodrin for. Objective: Vital signs are unremarkable. Neck without masses. There is no thyromegaly or bruits. Lungs are clear Heart regular rate regular rhythm no murmur. Chest wall tender over the costochondral spaces adjacent to the distal sternum Abdomen nontender Pulses distally 2+ Assessment: Atypical chest pain Costochondritis Pots Plan: Patient to take Aleve 2 twice a day for next 2 weeks. She is to take this with food and/or antacids Consider Holter monitor for recurring help limitations. I will defer this decision to cardiology when the patient is seeing within the next week. Referring Provider: SELF [[id number]] Allergies As of Date: 04/20/2019 Noted Allergy Reaction CLINDAMYCIN 07/21/2014 2 - Rash PENICILLINS 07/21/2014 2 - Rash Date Reviewed: 04/20/2019 Reviewed by: Dayday Acharya - Fully Assessed Reason for Visit: ED Follow-up [821] Primary Visit Diagnosis:Atypical chest pain [R07.89] Other Visit Diagnoses:Costochondriti s [M94.0] POTS (postural orthostatic tachycardia syndrome) [I49.8] Prescriptions as of 04/20/2019 Sig: ALBUTEROL SULFATE HFA 90 MCG/* Inhale 2 Puffs as instructed * CYCLOBENZAPRINE 5 MG TABLET Take 1 tablet by mouth every * Problem List As Of Date 04/20/2019 Noted Resolved Anxiety [F41.9] Fibromyalgia [M79.7] Exercise-induced asthma [J45.990] GERD (gastroesophageal reflux disease) [K21.9] Total bilirubin, elevated [R17] 11/20/2014 Near syncope [R55] 11/23/2014 Orthostatic hypotension [I95.1] 01/24/2015 POTS (postural orthostatic tachycardia syndrome*01/24/2015 Encounter Status:Closed by KOJO FORD MD on 04/20/19 [facility] PROGRESSon 04-20-2019 PROGRESS HNO ID: [id number] Author: Kojo Ford Service: ? Author Type: Physician Type: Progress Notes Filed: 04/20/2019 7:05 PM Note Text: Subjective: Patient is here for emergency department visit from [facility]. Patient has history of pots. She indicates that she has had 3 weeks of shortness of breath and chest discomfort seemingly to last . She notes this when she's laying on the right side as well associated with shortness of breath. She is notices it at work when she has been doing exertional things. She indicates her heart races at times. She has not been taking any medications for this. She went to the emergency department where workup was done on April 14. D-dimer was elevated and therefore CT of the chest was done. Pulmonary embolism was rulled out. Remainder of laboratory studies were unremarkable. Patient was diagnosed with costochondritis and placed on a Medrol Dosepak. She has finished this. She does have a history of the pots diagnosed in 2014 with a positive tilt table test. She is seeing her consignee again soon. There is been some question about whether to start Midodrin for. Objective: Vital signs are unremarkable. Neck without masses. There is no thyromegaly or bruits. Lungs are clear Heart regular rate regular rhythm no murmur. Chest wall tender over the costochondral spaces adjacent to the distal sternum Abdomen nontender Pulses distally 2+ Assessment: Atypical chest pain Costochondritis Pots Plan: Patient to take Aleve 2 twice a day for next 2 weeks. She is to take this with food and/or antacids Consider Holter monitor for recurring help limitations. I will defer this decision to cardiology when the patient is seeing within the next week. [facility] PROGRESS HNO ID: [id number] Author: Dayday Acharya Service: ? Author Type: ? Type: Progress Notes Filed: 04/20/2019 11:53 AM Note Text: HPV VACCINE(1 - Female 2-dose series) due on 2005 SPIROMETRY due on 2012 HIV SCREENING due on 2012 PAP TESTING due on 08/01/2015 DTAP,TDAP,TD(7 - Td) due on 06/17/2018 INFLUENZA(1) due on 10/19/2018 [facility] BETA HCG, QUAL, BLOODon - HCG ( test) Ql Negative NEGATIVE [facility] CBC, EDIF, PLATELETon 2019 ABSOLUTE BASOPHIL COUNT 0.1 10*3/uL 0 - 0.2 10*3/uL [facility] Basophils/100 WBC (Bld) 0.8 % 0 - 2 % [facility] Differential cell count method Nom (Bld) AUTO DIFF % [facility] Eosinophils (Bld) [#/Vol] 0.10 10*3/uL 0 - 0.7 10*3/uL [facility] Eosinophils/100 WBC (Bld) 0.7 % 0 - 11 % [facility] Erythrocyte distribution width (RBC) [Ratio] 12.1 % 11.5 - 14.5 % [facility] Hematocrit (Bld) [Volume fraction] 38.2 % 36 - 48 % [facility] Hemoglobin (Bld) [Mass/Vol] 13.4 g/dL [facility] Lymphocytes (Bld) [#/Vol] 2.60 10*3/uL 1.2 - 3.4 10*3/uL [facility] Lymphocytes/100 WBC (Bld) 29.0 % 20 - 55 % [facility] MCH (RBC) [Entitic mass] 32.3 pg 26 - 35 PG [facility] MCHC (RBC) [Mass/Vol] 35.1 g/dL [facility] MCV (RBC) [Entitic vol] 91.9 fL [facility] Monocytes (Bld) [#/Vol] 0.5 10*3/uL 0 - 0.7 10*3/uL [facility] Monocytes/100 WBC (Bld) 6.0 % 0 - 10 % [facility] Neutrophils (Bld) [#/Vol] 5.7 10*3/uL 1.4 - 6.5 10*3/uL [facility] Neutrophils/100 WBC (Bld) 63.5 % 37 - 75 % [facility] Platelet mean volume (Bld) [Entitic vol] 6.6 fL Low [facility] Platelets (Bld) [#/Vol] 275 10*3/uL 130 - 400 10*3/uL [facility] RBC (Bld) [#/Vol] 4.16 10*6/uL 4 - 5.4 10*6/uL [facility] WBC (Bld) [#/Vol] 9.0 10*3/uL 3.6 - 11 10*3/uL 10-20 Media COMPREHENSIVE METABOLIC PANE Nishant 04-14-2019 Albumin [Mass/Vol] 4.7 G/dl 3.5 - 5 G/dl [facility] Albumin/Globulin [Mass ratio] 1.2 {ratio} Low [facility] ALP [Catalytic activity/Vol] 48 U/L [facility] ALT [Catalytic activity/Vol] 14 U/L [facility] AST [Catalytic activity/Vol] 19 U/L [facility] Bilirubin [Mass/Vol] 1.4 mg/dL High [facility] Calcium [Mass/Vol] 9.7 mg/dL [facility] Chloride [Moles/Vol] 105 mmol/L [facility] CO2 [Moles/Vol] 24 mmol/L [facility] Creatinine [Mass/Vol] 0.46 mg/dL Low [facility] GFR/1.73 sq M predicted among blacks MDRD (S/P/Bld) [Vol rate/Area] mL/min/{1.73_m2} ml/min/1.73sq .m [facility] GFR/1.73 sq M predicted among non-blacks MDRD (S/P/Bld) [Vol rate/Area] mL/min/{1.73_m2} ml/min/1.73sq .m [facility] GFR/1.73 sq M predicted among non-blacks MDRD (S/P/Bld) [Vol rate/Area] Average GFR for 20-29 years old = 116. 10-20 Media Comment on above: Chronic Kidney disea se, GFR = <60. Kidney failure, GFR = <15. The GFR estimate is not adjusted for extreme body surface area or acute process, nor has it been validated for women or ethnic groups other than and . Glucose post fast [Mass/Vol] 92 mg/dL 10-20 Media Comment on above: NORMAL <100 mg/dL PREDIABETES 101-126 mg/dL DIABETES 126 mg/dL or higher Potassium [Moles/Vol] 3.2 mmol/L Low [facility] Protein [Mass/Vol] 8.7 g/dL High [facility] Sodium [Moles/Vol] 139 mmol/L [facility] Urea nitrogen [Mass/Vol] 9 mg/dL 10-[address] PE STUDYon 04-14-2019 User, Interfaces - 04/14/2019 12:[address] PULMONARY ANGIOGRAM: INDICATION: Positive d-dimer with chest pain. COMPARISON: Chest x-ray 04/14/2019. TECHNIQUE: Helical CT images of the chest were obtained after the administration of 75 mL of Omnipaque 350 with pulmonary angiography protocol. MIP (maximum intensity projection) images were performed. Dose reduction techniques were achieved by using automated exposure control and/or adjustment of mA and/or kV according to patient size and/or use of iterative reconstruction technique. FINDINGS: PULMONARY ARTERIES: There is satisfactory opacification of the pulmonary arterial system. There is no evidence of pulmonary embolism. The main pulmonary artery is normal in diameter. MEDIASTINUM: Thoracic aorta: Normal. Heart/pericardium: Normal. Mediastinal/hilar lymph nodes: No lymphadenopathy. Esophagus: Normal as visualized. PLEURAL CAVITY: No pleural effusion or pneumothorax. AIRWAYS/LUNGS: 3 mm nodular density in the lingula on image 81. Lungs are otherwise clear. CHEST WALL/AXILLA/LOWER NECK: Normal. VISUALIZED UPPER ABDOMEN: No acute findings. BONES: No acute osseous abnormality. Moderate dextroscoliosis of the thoracic spine. IMPRESSION IMPRESSION: 1. Negative for pulmonary embolism. 2. No other acute process. 3. 3 mm indeterminate nodular density in the lingula, likely benign in nature. 10-20 Media IMPRESSION: 1. Negat roselia for pulmonary embolism. 2. No other acute process. 3. 3 mm indeterminate nodular density in the lingula, likely benign in nature. 10-[address] PULMONARY ANGIOGR AM: INDICATION: Positive d-dimer with chest pain. COMPARISON: Chest x-ray 04/14/2019. TECHNIQUE: Helical CT images of the chest were obtained after the administration of 75 mL of Omnipaque 350 with pulmonary angiography protocol. MIP (maximum intensity projection) images were performed. Dose reduction techniques were achieved by using automated exposure control and/or adjustment of mA and/or kV according to patient size and/or use of iterative reconstruction technique. FINDINGS: PULMONARY ARTERIES: There is satisfactory opacification of the pulmonary arterial system. There is no evidence of pulmonary embolism. The main pulmonary artery is normal in diameter. MEDIASTINUM: Thoracic aorta: Normal. Heart/pericardium: Normal. Mediastinal/hilar lymph nodes: No lymphadenopathy. Esophagus: Normal as visualized. PLEURAL CAVITY: No pleural effusion or pneumothorax. AIRWAYS/LUNGS: 3 mm nodular density in the lingula on image 81. Lungs are otherwise clear. CHEST WALL/AXILLA/LOWER NECK: Normal. VISUALIZED UPPER ABDOMEN: No acute findings. BONES: No acute osseous abnormality. Moderate dextroscoliosis of the thoracic spine. 10-20 Media D-DIMER,QUANTITATIVEon 04-14 Fibrin D-dimer FEU (PPP) [Mass/Vol] CALLED TO A HEATH, JANELLE <0.56 mg/L FEU 10-20 Media Comment on above: If result is greater than the cutoff value of 0.5 mg/L then the potential for PE or DVT exists. Other conditions exist which may cause a falsely elevated level. Please correlate clinically, including radiological findings and other clinical parameters. LIPASEon 04-14-2019 Lipase [Catalytic activity/Vol] 33 U/L 23 - 300 U/L 10-20 Media MAGNESIUMon 04-14-2019 Magnesium [Mass/Vol] 2.2 mg/dL [facility] Otheron 04-14-2019 Interpretation and review of laboratory results Abnormal 10-20 Media SEDIMENTATION RATE, AUTOMATE Don 04-14-2019 ESR (Bld) [Velocity] 4 mm/h [facility] TROPONINon 04-14-2019 Troponin I.cardiac [Mass/Vol] ng/mL 0 - 0.08 ng/mL 10-20 Media TSHon 04-14-2019 TSH Qn 2.253 m[IU]/L 10-20 Media XR CHEST AP PORTABLEon 04-14 EXAM: XR CHEST AP PORTABLE HISTORY: cp COMPARISON: 11/17/2018. TECHNIQUE: A single AP erect portable view of the chest was obtained 1101 hours. FINDINGS: The heart is slender. The trachea is midline. Patient has a dextroscoliosis. Lungs are well expanded and normal. 10-20 Media User, Interfaces - 04/14/2019 11:40 AM EST EXAM: XR CHEST AP PORTABLE HISTORY: cp COMPARISON: 11/17/2018. TECHNIQUE: A single AP erect portable view of the chest was obtained 1101 hours. FINDINGS: The heart is slender. The trachea is midline. Patient has a dextroscoliosis. Lungs are well expanded and normal. IMPRESSION IMPRESSION: No interval change or chest abnormality is seen. 10-20 Media IMPRESSION: No inter corie change or chest abnormality is seen. 10-20 Media PROGRESSon 04-06-2019 PROGRESS HNO ID: [id number] Author: Sherice Chaney Ma Service: ? Author Type: ? Type: Progress Notes Filed: 04/06/2019 2:39 PM Note Text: Still unable to reach pt. Letter sent The patient has been identified by name and date of : YES Pended Orders None PHMA Documentation 07/24/2017 04/02/2019 Opts out of [facility] No Postponed Postponed Date - 04/06/2019 Appointments Scheduled Scheduled PCP Appt - Sherice Chaney Ma [facility] CNPTOUTREACHon 04-02-2019 CNPTOUTREA Patient Outreach ([facility]) -------- MAIDA BELL ([id number]) 1995 F Date Time Provider Department 04/02/19 SHERICE CHANEY) [facility] During your visit today, we recorded the following information about you: Sherice Chaney Ma 04/06/2019 2:39 PM Signed Unable to reach pt or leave . Will try again Sherice Chaney Ma 04/06/2019 2:39 PM Signed Still unable to reach pt. Letter sent The patient has been identified by name and date of : YES Pended Orders None PHMA Documentation 07/24/2017 04/02/2019 Opts out of [facility] No Postponed Postponed Date - 04/06/2019 Appointments Scheduled Scheduled PCP Appt - Sherice Chaney Ma Allergies As of Date: 04/02/2019 Noted Allergy Reaction CLINDAMYCIN 07/21/2014 2 - Rash PENICILLINS 07/21/2014 2 - Rash Date Reviewed: 08/02/2017 Reviewed by: Jeison Kurtz - Fully Assessed Prescriptions as of 04/02/2019 Sig: ALBUTEROL SULFATE HFA 90 MCG/* Inhale 2 Puffs as instructed * CYCLOBENZAPRINE 5 MG TABLET Take 1 tablet by mouth every * Problem List As Of Date 04/02/2019 Noted Resolved Anxiety [F41.9] Fibromyalgia [M79.7] Exercise-induced asthma [J45.990] GERD (gastroesophageal reflux disease) [K21.9] Total bilirubin, elevated [R17] 11/20/2014 Near syncope [R55] 11/23/2014 Orthostatic hypotension [I95.1] 01/24/2015 POTS (postural orthostatic tachycardia syndrome*01/24/2015 Letter Text Encounter Status:Closed by SHERICE CHANEY MA on 04/06/19 [facility] PROGRESSon 04-02-2019 PROGRESS HNO ID: [id number] Author: Sherice Chaney Ma Service: ? Author Type: ? Type: Progress Notes Filed: 04/06/2019 2:39 PM Note Text: Unable to reach pt or leave VM. Will try again [facility] OBSOLETEon 11-17-2018 OBSOLETE Refill ([facility]MD[facility]) -------- MAIDA BELL ([id number]) 1995 F Date Time Provider Department 11/17/18 KOJO CLAYTON [facility] During your visit today, we recorded the following information about you: Darby Gallegos Ma 11/17/2018 3:19 PM Signed Last appointment: 08/02/18 Next appointment: n/a Pharmacy verified in [facility]. Refill(s) requested: Pending Prescriptions Disp Refills ALBUTEROL SULFATE HFA 90 MCG/ACTUATION AEROSOL INHALER 1 Inhaler 5 Sig: Inhale 2 Puffs as instructed as needed. REN: No Order(s) pended. Please advise. Darby Gallegos Ma, EXECUTIVE CHEF Allergies As of Date: 11/17/2018 Noted Allergy Reaction CLINDAMYCIN 07/21/2014 2 - Rash PENICILLINS 07/21/2014 2 - Rash Date Reviewed: 08/02/2017 Reviewed by: Jeison Kurtz - Fully Assessed Reason for Visit: Refill Request [94] Order(s):albuterol HFA (PROVENTIL HFA) 90 mcg/actuation inhalerInhale 2 Puffs as instructed as needed.Disp: 1 InhalerRfl: 5 Prescriptions as of 11/17/2018 Sig: ALBUTEROL SULFATE HFA 90 MCG/* Inhale 2 Puffs as instructed * CYCLOBENZAPRINE 5 MG TABLET Take 1 tablet by mouth every * Problem List As Of Date 11/17/2018 Noted Resolved Anxiety [F41.9] Fibromyalgia [M79.7] Exercise-induced asthma [J45.990] GERD (gastroesophageal reflux disease) [K21.9] Total bilirubin, elevated [R17] INVALID FOR* Near syncope [R55] INVALID FOR* Orthostatic hypotension [I95.1] INVALID FOR* POTS (postural orthostatic tachycardia syndrome*INVALID FOR* Prescriptions ordered this encounter Disp Refills Start End ALBUTEROL SULFATE HFA 90 MCG/ACTUATI* 1 In* 5 11/17/2018 Cmt: Generic or brand: dispense inhaler preferred by patient/insurance unless REN flag is selected. Route: INHALATION Sig: Inhale 2 Puffs as instructed as needed. Medications Discontinued During This Encounter albuterol HFA (PROVENTIL HFA) 90 mcg* 1 In* 5 01/31/2018 11/17/2018 Route: INHALATION Sig: Inhale 2 Puffs as instructed as needed. Disc: Reason for discontinue is not on file. Encounter Status:Closed by KOJO CLAYTON MD on 11/17/18 [facility] POCT URINALYSIS DIPSTICK AUT OMATED W/O SCOPon 07-24-2018 Amorphous sediment LM Ql (Urine sed) 10-20 Media Appearance Nom (Body fld) cloudy [facility] Bacteria LM Ql (Urine sed) [facility] Bilirubin Ql (U) small [facility]ALTH Casts LM.LPF #/area (Urine sed) [facility] Color Nom (U) dark orange coloration [facility] Crystals LM Nom (Urine sed) [facility] Epithelial cells.squamous LM.HPF #/area (Urine sed) [facility] Flow cytometry specialist review Interp Rudy (Unsp spec) [facility] Ketones mass conc Negative mg/dL [facility] Leukocyte esterase Qn (U) 10-20 Media Leukocyte esterase Test strip Ql (U) Negative 10-20 Media Nitrite Ql (U) Negative [facility] pH (U) 5.5 [pH] [facility] POCT GLUCOSE, URINE Negative mg/dL [facility] Protein Ql (U) trace mg/dL [facility] RBC LM.HPF #/area (Urine sed) 10-20 Media RBC Ql (U) Negative 10-20 Media Specific gravity Relative Density (U) >=1.030 10-20 Media Transitional cells LM Ql (Urine sed) 10-20 [facility] Urobilinogen mass conc (U) 0.2 10-20 Media WBC LM.HPF #/area (Urine sed) 10-20 [facility] Otheron 05-23-2018 IMPRESSION: No acute bony abnormalities. 10-20 Media PROCEDURE: XR KNEE L EFT 4+ VIEWS 05/23/2018 3:03 PM EDT CLINICAL HISTORY: Pain 3 weeks. COMPARISON: None. TECHNIQUE: 4 views of the left knee. FINDINGS: No acute fractures, dislocations, or radiopaque foreign bodies. 10-20 Media User, Interfaces - 05/23/2018 3:26 PM EDT PROCEDURE: XR KNEE LEFT 4+ VIEWS 05/23/2018 3:03 PM EDT CLINICAL HISTORY: Pain 3 weeks. COMPARISON: None.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 01/23/2025 Start: 10-20-2023 COVID-19 Vaccine ( season) COVID-19 Vaccine ( season) [facility] Start: 10-20-2023 Influenza vaccination [facility] Start: 07-04-2023 End: 07-03-2024 XR Lumbar spine 2 or 3 Views XR Lumbar Spine Flex / Ext 2-3 Views Imaging Routine Low back pain, unspecified back pain laterality, unspecified chronicity, unspecified whether sciatica present Expected: 07/04/2023 (Approximate), Expires: 07/03/2024 [facility] Work Phone: Comment on above: Expected: 07/04/2023 (Approximate), Expires: 07/03/2024 Start: 10-19-2022 COVID-19 Vaccine ( season) COVID-19 Vaccine ( season) [facility] Start: 10-19-2022 Influenza vaccination INFLUENZA VACC INE (#1) [facility] Start: 10-19-2021 Influenza vaccination INFLUENZ A VACCINE (Season Ended) [facility] Start: 05-24-2021 GONORRHEA SCREEN GONORRHEA SCREEN [facility] Start: 05-24-2021 Screening for Chlamy arianne trachomatis CHLAMYDIA SCREEN [facility] Start: 10-19-2020 Influenza vaccination INFLUENZ A VACCINE (Season Ended) [facility] Start: 08-29-2020 End: 08-29-2020 Office Visit 08/29/2020 Office Visit [facility] Bayron Bo MD [address] [place] [address] [phone] [facility] Start: 03-31-2020 End: 03-31-2020 Office Visit 03/31/2020 Office Visit Cardiovascular Medicine Brandon Sandoval II, MD [address] [place] [address] [phone] [facility] Cardiology Start: 11-27-2019 End: 11-27-2019 Office Visit 11/27/2019 Office Visit Cardiovascular Medicine Brandon Sandoval II, MD [address] [place] [address] [phone] [facility] Start: 10-20-2019 Influenza vaccination INFLUENZA VACC INE (#1) [facility] Start: 10-09-2019 End: 10-09-2019 Office Visit 10/09/2019 Office Visit Cardiovascular Medicine Brandon Sandoval II, MD [address] [place] [address] [phone] [facility] Cardiology Start: 09-22-2019 End: 09-22-2019 Office Visit 09/22/2019 Office Visit Family Medicine Clau Guevara APRN-IVANNA [address] [place] [address] [phone] [facility] Start: 09-11-2019 End: 09-11-2019 Office Visit [facility] Cardiology Start: 10-19-2018 Influenza vaccination [facility] Start: 08-14-2018 End: 08-14-2018 Office Visit 08/14/2018 Office Visit Family Medicine Navdeep Hong MD [address] [place] [address] [facility] Start: 06-17-2018 Tetanus vaccination [facility] Start: 11-05-2015 PNEUMOCOCCAL VACCINE SERIES (2 of 2 - PCV) PNEUMOCOCCAL VACCINE SERIES (2 of 2 - PCV) [facility] Start: 11-05-2015 Pneumococcal Vaccine : Ped or At-Risk (2 of 2 - PCV) Pneumococcal Vaccine: Ped or At-Risk (2 of 2 - PCV) [facility] Start: 08-01-2015 Screening for malign ant neoplasm of cervix [facility] Start: 2013 Third diphtheria, te tanus and acellular pertussis (DTaP) vaccination TDAP (ADULT) [facility] Start: 2012 Hepatitis C screening Hepatitis C Sc reening [facility] Start: 2012 Tetanus vaccination [facility] Start: 2010 COVID-19 VACCINE (1) COVID-19 VACCIN E (1) [facility] Start: 2010 Screening for Chlamy arianne trachomatis CHLAMYDIA SCREEN [facility] Start: 2009 HIV screening [facility] Start: 2009 Vaccination for christine n papillomavirus HPV VACCINE ADOL (1 - Female 3-dose series) [facility] Start: 08-01-2007 HIV screening HIV SCREENING DISCUSSION [facility] Start: 2006 Depression screening using PHQ-9 (Patient Health Questionnaire 9) score [facility] Start: 2005 Vaccination for christine n papillomavirus [facility] Start: 08-01-1999 COVID-19 VACCINE (#1) COVID-19 VACCI NE (#1) [facility] Start: 1997 History and physical examination, annual for health maintenance Wellness Visit [facility] Start: 01-30-1995 COVID-19 VACCINE (#1) COVID-19 VACCI NE (#1) [facility] Start: 1994 GONORRHEA SCREEN GONORRHEA SCREEN [facility] Start: 1994 Hepatitis C antibody , confirmatory test HEPATITIS C VIRUS SCREENING [facility] Start: 1994 Hepatitis C screening HEPATITI S C VIRUS SCREENING [facility] Alanine aminotransfe rase [Enzymatic activity/volume] in Serum or Plasma [facility] Albumin [Mass/volume ] in Serum or Plasma [facility] Alkaline phosphatase [Enzymatic activity/volume] in Serum or Plasma [facility] Anion gap in Serum o r Plasma [facility] Bilirubin, total measurement [facility] BUN/Creatinine ratio [facility] Calcium [Mass/volume ] in Serum or Plasma [facility] Carbon dioxide, tota l [Moles/volume] in Central venous blood [facility] CBC W Auto Different ial panel - Blood [facility] CHLAMYDIA/GONOCOCCUS, ALISON CHLAMY ARIANNE/GONOCOCCUS, ALISON Microbiology Routine Screening examination for STD (sexually transmitted disease) 05/24/2020 3:25 PM EDT [facility] Creatinine [Mass/vol ume] in Serum or Plasma [facility] End: 11-17-2018 Diagnostic radiography of chest, combined PA and lateral XR CHEST PA AND LATERAL Imaging STAT One Time for 1 Occurrences starting 11/17/2018 until [facility]/17/[facility] on [facility]: One Time for 1 Occur rences starting 11/17/2018 until 11/17/2018 Diagnostic radiograp hy of chest, combined PA and lateral XR CHEST PA AND LATERAL Imaging STAT 11/17/2018 1:45 AM EDT [facility] Erythrocyte mean corpuscular volume determination [facility] Erythrocyte mean corpuscular volume determination [facility] Glucose [Mass/volume ] in Serum or Plasma [facility] Hematocrit [Volume Fraction] of Blood [facility] Hematocrit [Volume Fraction] of Blood [facility] Hemoglobin [Mass/vol ume] in Blood [facility] Hemoglobin [Mass/vol ume] in Blood [facility] End: 09-14-2019 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 ECG Routine Palpitations 1 Occurrences starting 09/14/2019 until 09/14/2019 [facility] Comment on above: 1 Occurrences starti ng 09/14/2019 until 09/14/2019 Leukocytes [#/volume ] in Blood [facility] Leukocytes [#/volume ] in Blood [facility] Mean corpuscular hemoglobin concentration determination [facility] Mean corpuscular hemoglobin concentration determination [facility] Mean corpuscular hemoglobin determination [facility] Mean corpuscular hemoglobin determination [facility] Measurement of gluco se 2 hours after glucose challenge for glucose tolerance test [facility] Measurement of renal function [facility] Neutrophil count [facility] Neutrophil count [facility] Neutrophil percent differential count [facility] Neutrophil percent differential count [facility] Patient referral [facility] Work Phone: Platelets [#/volume] in Blood [facility] Platelets [#/volume] in Blood [facility] Potassium measurement [facility] Protein/Creatinine [Ratio] in Urine [facility] Red blood cell count [facility] Red blood cell count [facility] Red cell distributio n width determination [facility] Red cell distributio n width determination [facility] Serologic test for syphilis [facility] Serum chloride measurement [facility] Sodium measurement [facility] End: 11-17-2018 Standard ECG ECG ECG STAT One Time for 1 Occurrences starting 11/17/2018 until 11/17/2018 [facility] Comment on above: One Time for 1 Occur rences starting 11/17/2018 until 11/17/2018 Standard ECG ECG ECG STAT 10:21 AM EST [facility] Total protein measurement [facility] TRICHOMANAS VAGINALI S, ALISON TRICHOMANAS VAGINALIS, ALISON Fluids Routine Screening examination for STD (sexually transmitted disease) 05/24/2020 3:25 PM EDT [facility] Urea nitrogen [Mass/volume] in Serum or Plasma [facility] Immunizations Immunization Date Immunization Notes Care Provider Zoya neves 08-20-2024 tetanus toxoid, redu romelia diphtheria toxoid, and acellular pertussis vaccine, adsorbed Dr. Marie Reilly DO Work Phone: [facility] 12-19-2015 influenza, injectabl e, quadrivalent, contains preservative [facility] 12-19-2015 influenza virus vacc ine, unspecified [facility] influenza, injectabl e, quadrivalent, contains preservative [facility] 11-04-2014 influenza, seasonal, injectable [facility] 11-04-2014 pneumococcal polysaccharide vaccine, 23 valent [facility] 12-13-2011 influenza, seasonal, injectable, preservative free [facility] 12-13-2011 meningococcal polysaccharide (groups A, C, Y and W-135) diphtheria toxoid conjugate vaccine (MCV4P) [facility] 05-19-2010 meningococcal polysaccharide (groups A, C, Y and W-135) diphtheria toxoid conjugate vaccine (MCV4P) [facility] 06-17-2008 tetanus toxoid, redu romelia diphtheria toxoid, and acellular pertussis vaccine, adsorbed [facility] 06-17-2008 varicella virus vaccine [facility] 06-03-2002 varicella virus vaccine [facility] 04-17-1999 diphtheria, tetanus toxoids and acellular pertussis vaccine, unspecified formulation [facility] 04-17-1999 measles, mumps and rubella virus vaccine [facility] 04-17-1999 poliovirus vaccine, unspecified formulation [facility] 12-20-1995 diphtheria, tetanus toxoids and acellular pertussis vaccine, unspecified formulation [facility] 12-20-1995 haemophilus influenz ae type b vaccine, conjugate unspecified formulation [facility] 12-20-1995 measles, mumps and rubella virus vaccine [facility] 05-17-1995 diphtheria, tetanus toxoids and acellular pertussis vaccine, unspecified formulation [facility] 05-17-1995 haemophilus influenz ae type b vaccine, conjugate unspecified formulation [facility] 05-17-1995 poliovirus vaccine, unspecified formulation [facility] 02-28-1995 diphtheria, tetanus toxoids and acellular pertussis vaccine, unspecified formulation [facility] 02-28-1995 haemophilus influenz ae type b vaccine, conjugate unspecified formulation [facility] 02-28-1995 hepatitis B vaccine, pediatric or pediatric/adolescent dosage [facility] 02-28-1995 poliovirus vaccine, unspecified formulation [facility] 1994 diphtheria, tetanus toxoids and acellular pertussis vaccine, unspecified formulation [facility] 1994 haemophilus influenz ae type b vaccine, conjugate unspecified formulation [facility] 1994 hepatitis B vaccine, pediatric or pediatric/adolescent dosage [facility] 1994 poliovirus vaccine, unspecified formulation [facility] 1994 hepatitis B vaccine, pediatric or pediatric/adolescent dosage [facility] Payers Date Payer Category Payer Unknown [id number] 2024 Self-pay 2022 Managed Care (unspecified) [employer] T[employer]* [id number] 2022 Private Health Insurance [employer] CIGNA TPA* [id number] 2022-Present [phone] [facility] [id number] [place] [id number]. [id number] 2022 Private Health Insurance [id number] 2021 Unknown [id number] 2021 Unknown [id number] [id number]. [id number] 2017 Unknown ANTHEM ANTHEM HM O PPO POS xxxxxxxxxxxxxxx 2017-Present [id number]. [id number] 2017 Unknown ANTHEM ANTHEM HM O PPO POS [id number] 2017-Present [id number] [id number]. [id number] 1994 Unknown [id number] 2.840.1.385398.3.579.2. 356 1994 Unknown [id number] 2.840.1.335315.3.579.2. 903 1994 Unknown [id number] 2..1.560694.3.579.2. 902 1994 Unknown [id number] 2.16.840.1.864300.3.579.2. 902 1994 Unknown [id number] 2.840.1.279450.3.579.2. 903 1994 Unknown [id number] 2.16.840.1.331825.3.579.2. 983 1994 Unknown [id number] 2.840.1.464687.3.579.2. 983 1994 Unknown [id number] 2..840.1.419596.3.579.2. 983 1994 Unknown [id number] 2.840.1.387251.3.579.2. 479 Unknown [id number] Unknown [id number] Unknown [id number] 2.840.1.939175.3.579.2. 462 Unknown [id number] 2.840.1.791911.3.579.2. 462 Unknown [id number] 2.840.1.756259.3.579.2. 462 Unknown [id number] 2.840.1.386481.3.579.2. 462 Unknown [id number] 2.840.1.757525.3.579.2. 462 Unknown [id number] 2.840.1.270981.3.579.2. 462 Unknown [id number] 2.840.1.443340.3.579.2. 462 Unknown [id number] 2.840.1.237667.3.579.2. 462 Unknown [id number] 2.840.1.869844.3.579.2. 462 Unknown [id number] 2.840.1.169671.3.579.2. 462 Unknown [id number] 2.840.1.043139.3.579.2. 462 Unknown [id number] 2.16.840.1.869612.3.579.2. 462 Social History Date Type Detail Facility Start: 05-23-2018 End: 06-29-2024 Tobacco smoking status IAIS Never smoker [facility] History of tobacco use Chews Tobacco [facility] Start: 03-21-2017 Alcohol Comment occasional [facility] Start: 1995 Sex Assigned At Not on file [facility] Start: 11-17-2018 End: 01-30-2024 Alcohol intake Yes [facility] Start: 04-14-2019 End: 01-09-2023 Tobacco smoking status [facility] Former smoker [facility] Start: 04-14-2019 End: 01-30-2024 Alcohol intake Current drinker of alcohol (finding) [facility] Start: 08-26-2019 End: 01-09-2023 Tobacco use and exposure Never used [facility] Exposure to SARS-CoV -2 (event) Yes [facility] History of tobacco use Current smoker [facility] Start: 01-09-2023 End: 01-30-2024 History of Social function [facility] Start: 03-18-2017 Gender identity Identifies as female gender (finding) [facility] Start: 07-06-2021 Alcohol Comment occasionally [facility] Start: 07-06-2021 Sexual orientation Heterosexual (finding) [facility] Start: 05-08-2024 Sex Female (finding) [facility] Start: 1995 Sex Assigned At Female [facility] Clinical Notes 07-07-2021 to 09-16-2024 Note Date & Type Note Facility 09-16-2024 Progress note [facility] 09-07-2024 Progress note [facility] 05-28-2024 Evaluation note Diagnosis Onset Date Resolution Asthma acute May 28 3:32pm FH: breast cancer in first degree relative acute May 3:32pm Genital warts due to HPV (human papillomavirus) acute May 28, 2024 3:32pm acute May 28 3:32pm Supervision of high-risk acute May 28, 2024 3:32pm Tilted uterus acute May 28, 2024 3:32pm Asthma acute June 25, 2024 2:51pm FH: breast cancer in first degree relative acute June 25, 2 025 2:51pm Genital warts due to HPV (human papillomavirus) acute June 25, 2024 2: 51pm acute June 25, 2024 2:51pm Scoliosis acute June 25, 2024 2:51pm Supervision of high-risk acute June 25 2:51pm Tilted uterus acute June 25 2:51pm Genital warts due to HPV (human papillomavirus) acute July 21, 2024 2 :49pm acute July 21, 2024 2:49pm Scoliosis acute July 21, 2024 2:49pm Supervision of high-risk acute July 21 2:49pm Tilted uterus acute July 21, 2 025 2:49pm Asthma acute August 20, 2024 2:59pm FH: breast cancer in first degree relative acute August 20, 2024 2:59pm Genital warts due to HPV (human papillomavirus) acute August 20, 2024 2 :59pm acute August 20, 2024 2:59pm Scoliosis acute August 20, 2024 2:59pm Supervision of high-risk acute August 20 2:59pm Tilted uterus acute August 20, 2 025 2:59pm [facility] Work Phone: 1(453) 703-449204-10-2025 Evaluation note* Diagnosis Onset Date Resolution Status Admit Date Asthma acute May 28 3:32pm FH: breast cancer in first degree relative acute May 28, 2024 3:32pm acute May 28 3:32pm Supervision of high-risk acute May 28, 2024 3:32pm Genital warts due to HPV (human papillomavirus) resolved May 3:32pm Tilted uterus resolved May 28, 2024 3:32pm Asthma acute June 25, 2024 2:51pm FH: breast cancer in first degree relative acute June 25, 2024 2: 51pm acute June 25, 2024 2:51pm Scoliosis acute June 25, 2024 2:51pm Supervision of high-risk acute June 25, 2024 2: 51pm Genital warts due to HPV (human papillomavirus) resolved June 25, 2024 2:51pm Tilted uterus resolved June 25 2:51pm acute July 21, 2024 2:49pm Scoliosis acute July 21, 2024 2:49pm Supervision of high-risk acute July 21, 2024 2 :49pm Genital warts due to HPV (human papillomavirus) resolved July 21, 2024 2:49pm Tilted uterus resolved July 21, 025 2:49pm Asthma acute August 20, 2024 2:59pm FH: breast cancer in first degree relative acute August 20, 2024 2 :59pm acute August 20, 2024 2:59pm Scoliosis acute August 20, 2024 2:59pm Supervision of high-risk acute August 20, 2024 2 :59pm Genital warts due to HPV (human papillomavirus) resolved August 20, 2024 2:59pm Tilted uterus resolved August 20, 025 2:59pm Anemia in preg-unspec acute Aug 11:26am Asthma acute September 07 11:26am FH: breast cancer in first degree relative acute September 07, 2024 11:26am acute September 07 11:26am Scoliosis acute September 07 11:26am Supervision of high-risk acute September 07, 2024 11:26am [facility] Work Phone: 1(865) 308-358404-10-2025 Evaluation note* Diagnosis Onset Date Resolution Status Admit Date Asthma acute May 28 3:32pm FH: breast cancer in first degree relative acute May 28, 2024 3:32pm acute May 28 3:32pm Supervision of high-risk acute May 28, 2024 3:32pm Genital warts due to HPV (human papillomavirus) resolved May 3:32pm Tilted uterus resolved May 28, 2024 3:32pm Asthma acute June 25, 2024 2:51pm FH: breast cancer in first degree relative acute June 25, 2024 2: 51pm acute June 25, 2024 2:51pm Scoliosis acute June 25, 2024 2:51pm Supervision of high-risk acute June 25, 2024 2: 51pm Genital warts due to HPV (human papillomavirus) resolved June 25, 2024 2:51pm Tilted uterus resolved June 25 2:51pm acute July 21, 2024 2:49pm Scoliosis acute July 21, 2024 2:49pm Supervision of high-risk acute July 21, 2024 2 :49pm Genital warts due to HPV (human papillomavirus) resolved July 21, 2024 2:49pm Tilted uterus resolved July 21, 2 025 2:49pm Asthma acute August 20, 2024 2:59pm FH: breast cancer in first degree relative acute August 20, 2024 2 :59pm acute August 20, 2024 2:59pm Scoliosis acute August 20, 2024 2:59pm Supervision of high-risk acute August 20, 2024 2 :59pm Genital warts due to HPV (human papillomavirus) resolved August 20, 2024 2:59pm Tilted uterus resolved August 20, 025 2:59pm Anemia in preg-unspec acute Aug 11:26am Asthma acute September 07 11:26am FH: breast cancer in first degree relative acute September 07, 2024 11:26am acute September 07 11:26am Scoliosis acute September 07 11:26am Supervision of high-risk acute September 07, 2024 11:26am Anemia in preg-unspec acute Aug 8:39am Asthma acute September 16 8:39am FH: breast cancer in first degree relative acute September 16, 2024 8:39am acute September 16 8:39am Scoliosis acute September 16 8:39am Supervision of high-risk acute September 16, 2024 8:39am [facility] Work Phone: 1(426) 797-762303-11-2025 Evaluation note* Diagnosis Onset Date Resolution Status Admit Date Asthma acute April 28 1:55pm FH: breast cancer in first degree relative acute April 28, 2024 1:55pm acute April 28 1:55pm Supervision of high-risk acute April 28, 2024 1:55pm Tilted uterus acute April 28, 2024 1:55pm 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 1:55pm Asthma acute May 28 3:32pm FH: breast cancer in first degree relative acute May 28, 2024 3:32pm Genital warts due to HPV (hu man papillomavirus) acute May 28, 2024 3:32pm acute May 28 3:32pm Supervision of high-risk acute May 28, 2024 3:32pm Tilted uterus acute May 28, 2024 3:32pm Asthma acute June 25, 2024 2:51pm FH: breast cancer in first degree relative acute June 25, 2024 2: 51pm Genital warts due to HPV (hu man papillomavirus) acute June 25, 2024 2: 51pm acute June 25, 2024 2:51pm Scoliosis acute June 25, 2024 2:51pm Supervision of high-risk acute June 25, 2024 2: 51pm Tilted uterus acute June 25 2:51pm Genital warts due to HPV (hu man papillomavirus) acute July 21, 2024 2 :49pm acute July 21, 2024 2:49pm Scoliosis acute July 21, 2024 2:49pm Supervision of high-risk acute July 21, 2024 2 :49pm Tilted uterus acute July 21, 025 2:49pm Asthma acute August 20, 2024 2:59pm FH: breast cancer in first degree relative acute August 20, 2024 2 :59pm Genital warts due to HPV (hu man papillomavirus) acute August 20, 2024 2 :59pm acute August 20, 2024 2:59pm Scoliosis acute August 20, 2024 2:59pm Supervision of high-risk acute August 20, 2024 2 :59pm Tilted uterus acute August 20, 2 025 2:59pm [facility] Work Phone: 1([phone]) 798-146302-14-2025 NotePap Smear Specimen AdequacyFebruary 2024 12:59amComment.Satisfactory for evaluation. Endocervical and/or squamous metaplasticcells (endocervical component)are present.[facility] A#[id number] HospitalComment on above:Satisfactory for evaluation. Endocervical and/or squamous metaplasticcells (endocervical component)are present.04-03-2024 Evaluation note* Diagnosis Onset Date Resolution Status Admit Date Asthma acute April 03, 2024 9:07am FH: breast cancer in first degree relative acute April 03, 2 025 9:07am Lupus acute April 03, 2024 9:07am acute April 03, 2024 9:07am Supervision of high-risk acute April 03, 2 025 9:07am Tilted uterus acute April 032024 9:07am Asthma acute April 28 1:55pm FH: breast cancer in first degree relative acute April 28, 2024 1:55pm Lupus acute April 28 1:55pm acute April 28 1:55pm Supervision of high-risk acute April 28, 2024 1:55pm Tilted uterus acute April 28, 2024 1:55pm [facility] Work Phone: [phone]) 765-124502-14-2025 Evaluation note* Diagnosis Onset Date Resolution Status Admit Date Asthma acute April 03, 2024 9:07am FH: breast cancer in first degree relative acute April 03, 2 025 9:07am acute April 03, 2024 9:07am Supervision of high-risk acute April 03, 025 9:07am Tilted uterus acute April 032024 9:07am Lupus deleted April 03, 2024 9:07am Asthma acute April 28 1:55pm FH: breast cancer in first degree relative acute April 28, 2024 1:55pm acute April 28 1:55pm Supervision of high-risk acute April 28, 2024 1:55pm Tilted uterus acute April 28, 2024 1:55pm 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 1:55pm Asthma acute May 28 3:32pm FH: breast cancer in first degree relative acute May 28, 2024 3:32pm Genital warts due to HPV (human papillomavirus) acute May 3:32pm acute May 28 3:32pm Supervision of high-risk acute May 28, 2024 3:32pm Tilted uterus acute May 28, 2024 3:32pm Asthma acute June 25, 2024 2:51pm FH: breast cancer in first degree relative acute June 25, 2024 2: 51pm Genital warts due to HPV (human papillomavirus) acute June 25, 2024 2:51pm acute June 25, 2024 2:51pm Scoliosis acute June 25, 2024 2:51pm Supervision of high-risk acute June 25, 2024 2: 51pm Tilted uterus acute June 25 2:51pm Asthma acute July 21, 2024 2:49pm FH: breast cancer in first degree relative acute July 21, 2024 2 :49pm Genital warts due to HPV (human papillomavirus) acute July 21, 2024 2:49pm acute July 21, 2024 2:49pm Scoliosis acute July 21, 2024 2:49pm Supervision of high-risk acute July 21, 2024 2 :49pm Tilted uterus acute July 21, 025 2:49pm [facility] Work Phone: [phone]) 774-720612-11-2024 History of Present illness Narrative* Cecy Santiago MA - 01/29/2024 11:00 AM EST Lumbago: She has been having low back pain for 3 week(s). Recent precipitating factors include: none recalled by the patient. Prior history of back problems: no prior back problems and recurrent selflimited episodes of low back pain in the past. Pain severity:pain is perceived as severe (6-8 pain scale). Pain quality: aching, burning, tingling, throbbing, or radiating to bilateral arms and legs ( more so on left). She reports numbness in the legs, and reports weakness of the legs. She denies pain with urination, and denies change in bowel movements. She has tried the following treatments: meloxicam and prednisone and found them prednisone helped but the meloxicam is not. She is seeing Dr. 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 She has a hx of chronic low back pain that started 8 months ago. She had a CT at that time and was tx with prednisone which helped. Recent precipitating factors include: none recalled by the patient. Prior history of back problems: no prior back problems and recurrent self limited episodes of low back pain in the past. Pain severity:pain is perceived as severe (6-8 pain scale). Pain quality: aching, burning, tingling, throbbing, or radiating to bilateral arms and legs ( more so on left). She reports numbness in the legs, and reports weakness of the legs. She denies pain with urination, and denies change in bowel movements. She has tried the following treatments: meloxicam and prednisone and found that the prednisone helped but the meloxicam is not. She most recently had prednisone 50 mg daily for days that was started on 01/21/2024 and the meloxicam was just started on 01/24/2024. With this episode, it started with brain fog and she has also noted generalized muscle pain and generalized extremity weakness. She still has a brain fog feeling and she has had numbness and tinglingof her extremities. She had similar symptoms with muscular weakness and paresthesia in [address] Swenson. He ordered labs and an MRI of the brain w/wo contrast for further evaluation but she did not complete the testing. She is under the care of [facility]. Saw Romario YIN on 01/24/2024-Note Medical Decision-Making and Summary: This is a 28-year-old female who came in for reevaluation of low back pain. At her previous visit, her symptoms were temporary relieved with oral steroids. However, her symptoms have returned and progressively worsened over the last several months. She has tried another recent course of oral steroids which has not helped her symptoms. I did review her lumbar CT again which did show what appears to be a slight retrolisthesis at L3-L4 upon my read. At this point, I did recommend obtaining a lumbar MRI without contrast given she has failed some conservative medications. I would also like to obtain lumbar flexion-extension films today to assess for any dynamic instability. I did prescribe her short course of Mobic for her back pain in the meantime. She will follow-up after completion of her testing. She was instructed to call with any questions or concerns in the meantime. MRI is scheduled for 02/28/2024. 01/24/2024 lumbar XR XR LUMBAR SPINE 2 OR 3 VW Order: [id number] Impression No evidence of instability with lateral flexion or extension. 06/20/[address] CT of lumbar spine CT SPINE LUMBAR WITHOUT CONTRAST Order: [id number] Impression 1. Mild levoconvex lower thoracic and lumbar scoliosis. 2. No acute findings. No fracture or subluxation. HISTORY/MEDICATIONS: Allergies Allergen Reactions Clindamycin Rash Penicillins Rash Past Medical History: Diagnosis Date Asthma Fibromyalgia Palpitations POTS (postural orthostatic tachycardia syndrome) Venous insufficiency Past Surgical History: Procedure Laterality Date WISDOM TEETH EXTRACTION Family History Problem Relation Age of Onset Cancer Other Diabetes Other Heart Disease - Other Other Breast Cancer Mother Myocardial Infarction Maternal Grandfather Diabetes Paternal Grandmother Diabetes Paternal Grandfather Current Outpatient Medications: Meloxicam 7.5 MG tablet, Take 1 tablet by mouth daily., Disp: , Rfl: metaxalone 800 MG tablet, Take 1 tablet by mouth 3 times daily., Disp: 30 tablet, Rfl: 2 ROS Review of Systems Constitutional: Positive for fatigue. Negative for appetite change, chills, diaphoresis, fever and unexpected weight change. HENT: Negative for congestion, ear pain, hearing loss, rhinorrhea, sore throat and trouble swallowing. Eyes: Negative for pain, discharge, redness and visual disturbance. Respiratory: Negative for apnea, cough, choking, chest tightness, shortness of breath and wheezing. Cardiovascular: Negative for chest pain, palpitations and leg swelling. Gastrointestinal: Negative for abdominal distention, abdominal pain, anal bleeding, blood in stool,constipation, diarrhea and nausea. Endocrine: Negative. Genitourinary: Positive for menstrual problem. Negative for decreased urine volume, difficulty urinating, dysuria, flank pain, frequency, hematuria and urgency. Musculoskeletal: Positive for back pain and myalgias. Negative for arthralgias, gait problem, jointswelling and neck pain. Skin: Negative. Allergic/Immunologic: Negative. Neurological: Positive for numbness. Negative for dizziness, tremors, syncope, weakness, light-headedness and headaches. Hematological: Negative. Psychiatric/Behavioral: Positive for decreased concentration. Negative for agitation, behavioral problems, confusion, dysphoric mood, hallucinations, self- injury, sleep disturbance and suicidal ideas. The patient is not nervous/anxious and is not hyperactive. VITALS: Vitals: 01/29/24 1103 BP: 128/66 Pulse: 80 Resp: 16 Temp: 97.8 degrees F (36.6 degrees C) SpO2: 100% Weight: 53.6 kg (118 lb 3.2 oz) Height: 1.626 m (5' 4) Body mass index is 20.29 kg/m . Wt Readings from Last 3 Encounters: 01/29/24 53.6 kg (118 lb 3.2 oz) 01/09/23 54.4 kg (120 lb) 07/11/21 46.5 kg (102 lb 9.6 oz) PHYSICAL EXAM Physical Exam Vitals and nursing note reviewed. Constitutional: Appearance: Normal appearance. She is normal weight. HENT: Head: Normocephalic. Right Ear: Tympanic membrane, ear canal and external ear normal. Left Ear: Tympanic membrane, ear canal and external ear normal. Nose: Nose normal. Mouth/Throat: Mouth: Mucous membranes are moist. Eyes: Extraocular Movements: Extraocular movements intact. Pupils: Pupils are equal, round, and reactive to light. Cardiovascular: Rate and Rhythm: Normal rate and regular rhythm. Heart sounds: Normal heart sounds. Pulmonary: Effort: Pulmonary effort is normal. Breath sounds: Normal breath sounds. Abdominal: General: Bowel sounds are normal. Palpations: Abdomen is soft. Musculoskeletal: Lumbar back: Tenderness present. No bony tenderness. Normal range of motion. Negative right straight leg raise test and negative left straight leg raise test. Skin: General: Skin is warm and dry. Neurological: Mental Status: She is alert and oriented to person, place, and time. Cranial Nerves: No cranial nerve deficit. Sensory: No sensory deficit. Motor: Weakness (generalized, extremities x 4 4/5) present. Coordination: Coordination normal. Gait: Gait normal. Psychiatric: Mood and Affect: Mood normal. Behavior: Behavior normal. Thought Content: Thought content normal. Judgment: Judgment normal. ASSESSMENT/PLAN ICD-10-CM 1. Brain fog R41.89 MRI BRAIN WITH AND WITHOUT CONTRAST 2. Chronic bilateral low back pain, unspecified whether sciatica present M54.50 metaxalone 800 MG tablet G89.29 3. Myalgia M79.10 CBC, EDIF, PLATELET COMPREHENSIVE METABOLIC PANEL TSH W/FT4 REFLEX B12 & FOLATE HUNG MULTIPLEX SCRN WITH REFLEX C REACTIVE PROTEIN SEDIMENTATION RATE, AUTOMATED metaxalone 800 MG tablet 4. Generalized muscle weakness M62.81 CBC, EDIF, PLATELET COMPREHENSIVE METABOLIC PANEL TSH W/FT4 REFLEX B12 & FOLATE MRI BRAIN WITH AND WITHOUT CONTRAST 5. Paresthesia R20.2 CBC, EDIF, PLATELET COMPREHENSIVE METABOLIC PANEL TSH W/FT4 REFLEX B12 & FOLATE MRI BRAIN WITH AND WITHOUT CONTRAST 6. Menorrhagia with irregular cycle N92.1 CBC, EDIF, PLATELET IRON/IRON BINDING/TRANSFERRIN 7. Fatigue, unspecified type R53.83 HUNG MULTIPLEX SCRN WITH REFLEX C REACTIVE PROTEIN SEDIMENTATION RATE, AUTOMATED Differential diagnoses discussed for the cause of her symptoms. Advised to stay on the meloxicam and I am adding metaxalone. Discussed risks (side effects) and benefits of medication & encouragedto read about medication and take meds as directed. She will continue to follow with neurosurg HUMPHREY Funes and get the lumbar MRI as scheduled in February. As for the brain fog, generalized muscle weakness/aches and paresthesia, I will get labs and order has been placed for MRI of the brain for further evaluation. She has a hx of fibromyalgia which somesymptoms may relate but not all. I will follow up on results of testing once they are all completed. Call or return to clinic if symptoms worsen or fail to improve. documented in [facility]12[facility] History of Present illness Narrative* Romario Lindsey PA-Jerri - 01/24/2024 9:17 AM EST Patient Information: Maida Bell is a 28 y.o. female 1995 HPI Patient is a 28-year-old female presenting for reevaluation of low back pain. Patient was seen approximately 8 months ago for her low back pain. She reports that at that time an oral steroid did helpher symptoms. However shortly after completing the steroid her back pain returned. She continues toreport low back pain that does radiate primarily to her buttock and left posterior thigh. She reports this pain does not extend beyond her knee. She does report some intermittent numbness/tingling inher lateral thigh bilaterally. She reports that her symptoms are significantly worsened with walking and standing for long periods of time. She denies any bowel/bladder incontinence or saddle anesthesia. She was sent for physical therapy previously but did not complete this due to her improving symptoms at that time. She was recently seen in the urgent care and was given another oral steroid which did not help her symptoms. Detailed Review: She has a past medical history of Asthma. She has no past surgical history on file. Her family history is not on file. She reports that she has never smoked. She does not have any smokeless tobacco history on file. Shereports current alcohol use of about 1.0 - 2.0 standard drink of alcohol per week. She reports thatshe does not use drugs. Current medicine and allergy list has been reviewed with the patient. ROS: 12 System Review was performed by the patient in the office setting today, and reviewed with the patient. This ROS will be digitally scanned into the chart following the appointment today. Physical and Neurological Examination: AAOx3, sensory exam intact, 4+/5 left iliopsoas otherwise 5/5 in lower extremities, no clonus, gaitnormal, negative straight leg raise Studies Reviewed I have reviewed the patient's imaging studies to date, in detail with patient in the office. I reviewed the patient's previous lumbar CT which did show what appears to be a slight retrolisthesis at L3-L4 upon my read. There was also noted to be levoscoliosis. Medical Decision-Making and Summary: This is a 28-year-old female who came in for reevaluation of low back pain. At her previous visit, her symptoms were temporary relieved with oral steroids. However, her symptoms have returned and progressively worsened over the last several months. She has tried another recent course of oral steroids which has not helped her symptoms. I did review her lumbar CT again which did show what appears to be a slight retrolisthesis at L3-L4 upon my read. At this point, I did recommend obtaining a lumbar MRI without contrast given she has failed some conservative medications. I would also like to obtain lumbar flexion-extension films today to assess for any dynamic instability. I did prescribe her short course of Mobic for her back pain in the meantime. She will follow-up after completion of her testing. She was instructed to call with any questions or concerns in the meantime. I have reviewed the clinical findings with the patient in the office today, and the radiographic correlate was demonstrated to the patient in the exam room as well. I discussed the natural history, as well as conservative and surgical treatment options. I utilized spinal models and diagrams to act as visual aids during counseling today. I have answered the patient's questions today, following my consultation. The patient was advised to call with any questions. documented in this [id number] NotePatient Information: Maida Bell is a 27 y.o. female 1995 HPI Patient is a 27-year-old female presenting for evaluation of low back pain. She reports a history of low back pain for many years but states it has been very mild and tolerable. However, she notes approximately 2 weeks ago sudden onset of lumbar pain mainly right-sided. She reports that this occurs intermittently and describes it as stabbing. She does report occasional pain into her buttock and thighs but states that this occurs intermittently. She denies any weakness or bowel/bladder incontinence. She does report occasional numbness in the plantar aspect of her feet. She does report that her pain is worsened with prolonged sitting. She has not tried any recent physical therapy or injections.She has tried pain medicine, anti-inflammatories, and oral steroids with some relief. Detailed Review: She has a past medical history of Asthma. She has no past surgical history on file. Her family history is not on file. She reports that she has never smoked. She does not have any smokeless tobacco history on file. She reports current alcohol use of about 1.0 - 2.0 standard drink of alcohol per week. She reports that she does not use drugs. Current medicine and allergy list has been reviewed with the patient. ROS: 12 System Review was performed by the patient in the office setting today, and reviewed with the patient. This ROS will be digitally scanned into the chart following the appointment today. Physical and Neurological Examination: AAOx3, sensory intact, motor 5/5 throughout bilateral lower extremities, no clonus, no Goetz's, reflexes 2+, gait normal Studies Reviewed I have reviewed the patient's imaging studies to date, in detail with patient in the office. I reviewed the patient's lumbar CT scan which does show what appears to be a slight retrolisthesis at L4-L5. There is not appear to be any acute fractures. Medical Decision-Making and Summary: This is a 27-year-old female with a 2-week history of low back pain. On exam she is full strength without any signs of myelopathy. I did review her lumbar CT scan with her which does show what I suspect to be slight retrolisthesis at L4-L5. There is not appear to be any acute fractures. She does have levoscoliosis noted. Her symptoms do seem consistent with muscle spasms. Given she has not tried any conservative treatments, I did recommend a course of muscle relaxants and physical therapy. I did advise her on therapy exercises to complete at home over the next several weeks. I instructed her that she has no improvement in her symptoms with the muscle relaxant and home exercises to call our office and we will then obtain a lumbar MRI and lumbar flexion-extension films. She is agreeable to this plan and will follow-up with our office if she has no improvement over the next several weeks. I have reviewed the clinical findings with the patient in the office today, and the radiographic correlate was demonstrated to the patient in the exam room as well. I discussed the natural history, as well as conservative and surgical treatment options. I utilized spinal models and diagrams to act as visual aids during counseling today. I have answered the patient's questions today, following my consultation. The patient was advised to call with any questions. AUTHENTICATED BY ROMARIO LINDSEY, ON 07/04/2023 15:17:55[facility] History of Present illness Narrative* Romario Lindsey PA-C - 07/04/2023 3:12 PM EDT Patient Information: Maida Bell is a 27 y.o. female 1995 HPI Patient is a 27-year-old female presenting for evaluation of low back pain. She reports a history of low back pain for many years but states it has been very mild and tolerable. However, she notes approximately 2 weeks ago sudden onset of lumbar pain mainly right-sided. She reports that this occursintermittently and describes it as stabbing. She does report occasional pain into her buttock and thighs but states that this occurs intermittently. She denies any weakness or bowel/bladder incontinence. She does report occasional numbness in the plantar aspect of her feet. She does report that herpain is worsened with prolonged sitting. She has not tried any recent physical therapy or injections. She has tried pain medicine, anti-inflammatories, and oral steroids with some relief. Detailed Review: She has a past medical history of Asthma. She has no past surgical history on file. Her family history is not on file. She reports that she has never smoked. She does not have any smokeless tobacco history on file. Shereports current alcohol use of about 1.0 - 2.0 standard drink of alcohol per week. She reports thatshe does not use drugs. Current medicine and allergy list has been reviewed with the patient. ROS: 12 System Review was performed by the patient in the office setting today, and reviewed with the patient. This ROS will be digitally scanned into the chart following the appointment today. Physical and Neurological Examination: AAOx3, sensory intact, motor 5/5 throughout bilateral lower extremities, no clonus, no Goetz's, reflexes 2+, gait normal Studies Reviewed I have reviewed the patient's imaging studies to date, in detail with patient in the office. I reviewed the patient's lumbar CT scan which does show what appears to be a slight retrolisthesis at L4-L5. There is not appear to be any acute fractures. Medical Decision-Making and Summary: This is a 27-year-old female with a 2-week history of low back pain. On exam she is full strength without any signs of myelopathy. I did review her lumbar CT scan with her which does show what I suspect to be slight retrolisthesis at L4- L5. There is not appear to be any acute fractures. She does have levoscoliosis noted. Her symptoms do seem consistent with muscle spasms. Given she has not tried any conservative treatments, I did recommend a course of muscle relaxants and physical therapy. I did advise her on therapy exercises to complete at home over the next several weeks. I instructed her that she has no improvement in her symptoms with the muscle relaxant and home exercises to call our office and we will then obtain a lumbar MRI and lumbar flexion-extension films. She is agreeable to this plan and will follow-up with our office if she has no improvement over the next several weeks. I have reviewed the clinical findings with the patient in the office today, and the radiographic correlate was demonstrated to the patient in the exam room as well. I discussed the natural history, as well as conservative and surgical treatment options. I utilized spinal models and diagrams to act as visual aids during counseling today. I have answered the patient's questions today, following my consultation. The patient was advised to call with any questions. documented in this [id number] Emergency department Note* Martine Banda RN - 07/07/2021 9:20 AM EDT [facility] [place] instructions given with explanation for the need to go to pharmacy to hot die picker med. No questions/concerns. [id number]. Denies pain. [facility]05-20-[facility] Emergency department Note* Martine Banda RN - 07/07/2021 9:20 AM EDT [facility] [place] [facility] instructions given with explanation for the need to go to pharmacy to hot die picker med. No questions/concerns. [id number]. Denies pain. * Martine Banda RN - 07/07/2021 8:30 AM EDT Patient resting quietly on cart without distress. Awaiting lab results. Denies pain or needs. Call light in reach. * Prieto Cruz MD - 07/07/2021 7:54 AM EDT Emergency Department Report [facility] EMERGENCY DEPARTMENT Service Date:.07/07/21 PCP: Clau Guevara Chief Complaint: Chief Complaint Patient presents with Extremity Weakness Patient being treated for tooth abscess with Z-pack, seen at [facility] yesterday for complaints of weakness, testing all negative. Patient states I just don't feel right. Complains of extremity weakness. HPI Maida Bell is a 25 y.o. female presents to the ED with chief complaint of Generalized weakness and tingling. Patient states for the past week she has had some weakness and tingling sensations. She states started in her right arm and then to both arms than her left leg and now her whole body. She denies any headache. She denies any neck pain or back pain. She denies any vomiting or diarrhea.She states she was recently treated for dental infection which she states is under control. She states she has had no headache. She denies any loss of bowel or bladder control. She denies foot drop. She denies vision change. She denies . She states she underwent a CT of her brain yesterdaywhich was negative. She also had a urine test test which was negative. She also had some blood work done. She denies any recent fall or trauma. She denies slurred speech or facial weakness Review of Systems: Review of Systems Review of Systems Constitutional: Negative for fevers or chills Skin: Negative for rash, bruising, itch, tick bites HENT: Negative for sore throat earache or nosebleeds Eyes: Negative Cardiovascular: Negative for chest pain, palpitations Gastrointestinal: Negative for nausea vomiting or diarrhea Respiratory: Negative for cough, wheezing, shortness of breath Genitourinary: Negative for frequency, dysuria Musculoskeletal: Negative for fall, fracture, trauma Neurological: Positive for generalized tingling and feeling of heaviness in her body Allergy/Immunology: Negative for rash Lymph/Heme: Negative for bruising, bleeding Past Medical History: Past Medical History: Diagnosis Date Asthma Fibromyalgia Palpitations POTS (postural orthostatic tachycardia syndrome) Venous insufficiency Past Surgical History: Past Surgical History: Procedure Laterality Date WISDOM TEETH EXTRACTION Allergies: Allergies Allergen Reactions Clindamycin Rash Penicillins Rash Medications: Patient's Medications New Prescriptions No medications on file Previous Medications ALBUTEROL 108 (90 BASE) MCG/ACT AERO SOLN INHALER Inhale 1 puff every 6 hours as needed for Wheezing. AZITHROMYCIN 250 MG TABLET TAKE 2 TABLETS BY MOUTH ON DAY 1, AND THEN TAKE 1 TABLET BY MOUTH ONCE ADAY ON DAY 2 THROUGH DAY 5 COMPRESSION STOCKING -RX 15-20 mmhg CYCLOBENZAPRINE 5 MG TAB TABLET TAKE 1 TABLET BY MOUTH EVERY 8 HOURS NEEDED FOR MUSCLE SPASM IBUPROFEN 800 MG TABLET Take 1 tablet by mouth every 8 hours as needed for Moderate Pain or Severe Pain. MIDODRINE 10 MG TABLET Take 1 tablet by mouth 3 times daily. NORELGESTROMIN-ETHINYL ESTRADIOL (XULANE) 150-35 MCG/24HR PATCH WEEKLY Place 1 patch on skin every 7 days. Apply a new patch eack week for 3 weeks (21 total days). Do not apply a patch during the fourth week. Modified Medications No medications on file Discontinued Medications No medications on file Family History: Family History Problem Relation Age of Onset Cancer Other Diabetes Other Heart Disease - Other Other Breast Cancer Mother Myocardial Infarction Maternal Grandfather Diabetes Paternal Grandmother Diabetes Paternal Grandfather Social History: Social History Socioeconomic History Marital status: Single Spouse name: Not on file Number of children: Not on file Years of education: Not on file Highest education level: Not on file Occupational History Not on file Tobacco Use Smoking status: Former Smoker Smokeless tobacco: Never Used Vaping Use Vaping Use: Never used Substance and Sexual Activity Alcohol use: Yes Comment: occasional Drug use: No Sexual activity: Not Currently Partners: Male control/protection: None, Vasectomy Comment: partner vasectomy Other Topics Concern Service Not Asked Blood Transfusions Not Asked Caffeine Concern Not Asked Occupational Exposure Not Asked Hobby Hazards Not Asked Sleep Concern Not Asked Stress Concern Not Asked Weight Concern Not Asked Special Diet Not Asked Back Care Not Asked Exercise Not Asked Bike Helmet Not Asked Seat Belt Not Asked Domestic Violence No Social History Narrative Not on file Social Determinants of Health Financial Resource Strain: Not on file Food Insecurity: Not on file Transportation Needs: Not on file Physical Activity: Not on file Stress: Not on file Social Connections: Not on file Intimate Partner Violence: Not on file Housing Stability: Not on file Physical Exam: Physical Exam General: Well-nourished well-developed nontoxic HENT: Head is atraumatic. Scalp is nontender. Face is symmetric. Mucous membranes are well-hydratedand moist. Nose without exudates. Dentition is in poor condition. She does have eroded right lower dentition with dental caries. No fluctuance to the gingiva. There is no malocclusion or trismus Eyes: Pupils are equal. Sclerae anicteric Skin: Warm, dry. No rash. No petechiae or purpura Abdomen: Soft. No guarding, rebound Respiratory: Clear. No wheezing. No rhonchi Heart: Heart tones are regular. Capillary refill is brisk. Nailbeds are pink Neurologic: Awake, alert, oriented 3. Gait is narrow-based and stable. Deep tendon reflexes are 2 out of 4 and strong. She is moving all extremities well. No nuchal rigidity. Hand grasps are strong. Intact fine motor movement. Plantar reflexes are downgoing. Heel to salas test is intact. No pronatordrift. No ataxia. Patellar tendon reflexes are 2 out of 4 and strong. Lymphatic: No anterior posterior cervical lymphadenopathy Musculoskeletal: No fracture, trauma, deformity. No tenderness to palpation over the thoracic or lumbar spines. No tenderness to percussion over the thoracic or lumbar spines. There is no joint swelling Psychiatric: Cooperative with examiner Vital Signs During ED Visit Patient Vitals for the past 24 hrs: BP Temp Temp src Pulse Resp SpO2 07/07/21 0741 130/65 98.5 F (36.9 C) Oral 63 16 99 % Orders/Results: Results for orders placed or performed during the hospital encounter of 07/07/21 COMPREHENSIVE METABOLIC PANEL Result Value Ref Range GLUCOSE 88 70 - 100 MG/DL BUN 10 7 - 20 MG/DL CREATININE SERUM 0.54 0.52 - 1.04 MG/DL SODIUM 138 136 - 145 MMOL/L POTASSIUM 3.6 3.5 - 5.1 MMOL/L CHLORIDE 105 98 - 107 MMOL/L CALCIUM 9.2 8.4 - 10.2 MG/DL PROTEIN, TOTAL 7.4 6.3 - 8.2 GM/DL ALBUMIN 4.4 3.5 - 5.0 G/dl BILIRUBIN, TOTAL 0.9 0.2 - 1.2 MG/DL AST 17 15 - 41 IU/L ALKALINE PHOSPHATASE 48 38 - 126 IU/L CARBON DIOXIDE (CO2) 24 22 - 30 MMOL/L A/G Ratio 1.5 1.3 - 2.2 RATIO ALT 13 (L) 14 - 54 IU/L ESTIMATED GFR, NON AMER 145 ml/min/1.73sq.m ESTIMATED GFR, 176 ml/min/1.73sq.m GFR COMMENT Average GFR for 20-29 years old = 116. TSH Result Value Ref Range TSH 1.340 0.45 - 5.33 uIU/ML MAGNESIUM Result Value Ref Range MAGNESIUM 1.9 1.6 - 2.3 MG/DL SEDIMENTATION RATE, AUTOMATED Result Value Ref Range SEDIMENTATION RATE AUTOMATED 10 0 - 15 MM/HR C REACTIVE PROTEIN Result Value Ref Range C-REACTIVE PROTEIN <7.9 0 - 10.0 MG/L CK Result Value Ref Range CK 73 26 - 140 IU/L Radiographic Imaging No orders to display Procedures: Procedures Moderate Sedation Procedure: No ED Summary/MDM patient had blood work drawn including a CK which was 73 see reactive protein less than 8 sedimentation rate of 10. Magnesium 1.9. TSH 1.3 and her potassium has normalized at 3.6 up from 3.3 The previous day. At this time I find no obvious source of her neurologic complaint. We did speak about MS along with other autoimmune issues. I will have her follow-up with her primary provider. I feel a neurology evaluation is indicated as an outpatient I will start her on some prednisone as I find no evidence of current infection and if she does havesome autoimmune or neurologic insult such as MS this may be beneficial Clinical Impression: 1. Tingling in extremities No follow-ups on file. New Prescriptions No medications on file Discontinued Medications No medications on file An After Visit Summary was printed and given to the patient with above information. . Prieto Cruz MD 07/07/21911 * Martine Banda RN - 07/07/2021 7:[address] [facility]. documented in this [facility] Emergency department Note* Martine Banda RN - 07/07/2021 8:30 AM EDT Patient resting quietly on cart without distress. Awaiting lab results. Denies pain or needs. Call light in reach. [facility]05-[facility] Physician Emergency department Note* Prieto Cruz MD - 07/07/2021 7:54 AM EDT Emergency Department Report [facility] EMERGENCY DEPARTMENT Service Date:.07/07/21 PCP: Clau Guevara Chief Complaint: Chief Complaint Patient presents with Extremity Weakness Patient being treated for tooth abscess with Z-pack, seen at [facility] yesterday for complaints of weakness, testing all negative. Patient states I just don't feel right. Complains of extremity weakness. HPI Maida Bell is a 25 y.o. female presents to the ED with chief complaint of Generalized weakness and tingling. Patient states for the past week she has had some weakness and tingling sensations. She states started in her right arm and then to both arms than her left leg and now her whole body. She denies any headache. She denies any neck pain or back pain. She denies any vomiting or diarrhea.She states she was recently treated for dental infection which she states is under control. She states she has had no headache. She denies any loss of bowel or bladder control. She denies foot drop. She denies vision change. She denies . She states she underwent a CT of her brain yesterdaywhich was negative. She also had a urine test test which was negative. She also had some blood work done. She denies any recent fall or trauma. She denies slurred speech or facial weakness Review of Systems: Review of Systems Review of Systems Constitutional: Negative for fevers or chills Skin: Negative for rash, bruising, itch, tick bites HENT: Negative for sore throat earache or nosebleeds Eyes: Negative Cardiovascular: Negative for chest pain, palpitations Gastrointestinal: Negative for nausea vomiting or diarrhea Respiratory: Negative for cough, wheezing, shortness of breath Genitourinary: Negative for frequency, dysuria Musculoskeletal: Negative for fall, fracture, trauma Neurological: Positive for generalized tingling and feeling of heaviness in her body Allergy/Immunology: Negative for rash Lymph/Heme: Negative for bruising, bleeding Past Medical History: Past Medical History: Diagnosis Date Asthma Fibromyalgia Palpitations POTS (postural orthostatic tachycardia syndrome) Venous insufficiency Past Surgical History: Past Surgical History: Procedure Laterality Date WISDOM TEETH EXTRACTION Allergies: Allergies Allergen Reactions Clindamycin Rash Penicillins Rash Medications: Patient's Medications New Prescriptions No medications on file Previous Medications ALBUTEROL 108 (90 BASE) MCG/ACT AERO SOLN INHALER Inhale 1 puff every 6 hours as needed for Wheezing. AZITHROMYCIN 250 MG TABLET TAKE 2 TABLETS BY MOUTH ON DAY 1, AND THEN TAKE 1 TABLET BY MOUTH ONCE ADAY ON DAY 2 THROUGH DAY 5 COMPRESSION STOCKING -RX 15-20 mmhg CYCLOBENZAPRINE 5 MG TAB TABLET TAKE 1 TABLET BY MOUTH EVERY 8 HOURS NEEDED FOR MUSCLE SPASM IBUPROFEN 800 MG TABLET Take 1 tablet by mouth every 8 hours as needed for Moderate Pain or Severe Pain. MIDODRINE 10 MG TABLET Take 1 tablet by mouth 3 times daily. NORELGESTROMIN-ETHINYL ESTRADIOL (XULANE) 150-35 MCG/24HR PATCH WEEKLY Place 1 patch on skin every 7 days. Apply a new patch eack week for 3 weeks (21 total days). Do not apply a patch during the fourth week. Modified Medications No medications on file Discontinued Medications No medications on file Family History: Family History Problem Relation Age of Onset Cancer Other Diabetes Other Heart Disease - Other Other Breast Cancer Mother Myocardial Infarction Maternal Grandfather Diabetes Paternal Grandmother Diabetes Paternal Grandfather Social History: Social History Socioeconomic History Marital status: Single Spouse name: Not on file Number of children: Not on file Years of education: Not on file Highest education level: Not on file Occupational History Not on file Tobacco Use Smoking status: Former Smoker Smokeless tobacco: Never Used Vaping Use Vaping Use: Never used Substance and Sexual Activity Alcohol use: Yes Comment: occasional Drug use: No Sexual activity: Not Currently Partners: Male control/protection: None, Vasectomy Comment: partner vasectomy Other Topics Concern Service Not Asked Blood Transfusions Not Asked Caffeine Concern Not Asked Occupational Exposure Not Asked Hobby Hazards Not Asked Sleep Concern Not Asked Stress Concern Not Asked Weight Concern Not Asked Special Diet Not Asked Back Care Not Asked Exercise Not Asked Bike Helmet Not Asked Seat Belt Not Asked Domestic Violence No Social History Narrative Not on file Social Determinants of Health Financial Resource Strain: Not on file Food Insecurity: Not on file Transportation Needs: Not on file Physical Activity: Not on file Stress: Not on file Social Connections: Not on file Intimate Partner Violence: Not on file Housing Stability: Not on file Physical Exam: Physical Exam General: Well-nourished well-developed nontoxic HENT: Head is atraumatic. Scalp is nontender. Face is symmetric. Mucous membranes are well-hydratedand moist. Nose without exudates. Dentition is in poor condition. She does have eroded right lower dentition with dental caries. No fluctuance to the gingiva. There is no malocclusion or trismus Eyes: Pupils are equal. Sclerae anicteric Skin: Warm, dry. No rash. No petechiae or purpura Abdomen: Soft. No guarding, rebound Respiratory: Clear. No wheezing. No rhonchi Heart: Heart tones are regular. Capillary refill is brisk. Nailbeds are pink Neurologic: Awake, alert, oriented 3. Gait is narrow-based and stable. Deep tendon reflexes are 2 out of 4 and strong. She is moving all extremities well. No nuchal rigidity. Hand grasps are strong.Intact fine motor movement. Plantar reflexes are downgoing. Heel to salas test is intact. No pronator drift. No ataxia. Patellar tendon reflexes are 2 out of 4 and strong. Lymphatic: No anterior posterior cervical lymphadenopathy Musculoskeletal: No fracture, trauma, deformity. No tenderness to palpation over the thoracic or lumbar spines. No tenderness to percussion over the thoracic or lumbar spines. There is no joint swelling Psychiatric: Cooperative with examiner Vital Signs During ED Visit Patient Vitals for the past 24 hrs: BP Temp Temp src Pulse Resp SpO2 07/07/21 0741 130/65 98.5 F (36.9 C) Oral 63 16 99 % Orders/Results: Results for orders placed or performed during the hospital encounter of 07/07/21 COMPREHENSIVE METABOLIC PANEL Result Value Ref Range GLUCOSE 88 70 - 100 MG/DL BUN 10 7 - 20 MG/DL CREATININE SERUM 0.54 0.52 - 1.04 MG/DL SODIUM 138 136 - 145 MMOL/L POTASSIUM 3.6 3.5 - 5.1 MMOL/L CHLORIDE 105 98 - 107 MMOL/L CALCIUM 9.2 8.4 - 10.2 MG/DL PROTEIN, TOTAL 7.4 6.3 - 8.2 GM/DL ALBUMIN 4.4 3.5 - 5.0 G/dl BILIRUBIN, TOTAL 0.9 0.2 - 1.2 MG/DL AST 17 15 - 41 IU/L ALKALINE PHOSPHATASE 48 38 - 126 IU/L CARBON DIOXIDE (CO2) 24 22 - 30 MMOL/L A/G Ratio 1.5 1.3 - 2.2 RATIO ALT 13 (L) 14 - 54 IU/L ESTIMATED GFR, NON AMER 145 ml/min/1.73sq.m ESTIMATED GFR, 176 ml/min/1.73sq.m GFR COMMENT Average GFR for 20-29 years old = 116. TSH Result Value Ref Range TSH 1.340 0.45 - 5.33 uIU/ML MAGNESIUM Result Value Ref Range MAGNESIUM 1.9 1.6 - 2.3 MG/DL SEDIMENTATION RATE, AUTOMATED Result Value Ref Range SEDIMENTATION RATE AUTOMATED 10 0 - 15 MM/HR C REACTIVE PROTEIN Result Value Ref Range C-REACTIVE PROTEIN <7.9 0 - 10.0 MG/L CK Result Value Ref Range CK 73 26 - 140 IU/L Radiographic Imaging No orders to display Procedures: Procedures Moderate Sedation Procedure: No ED Summary/MDM patient had blood work drawn including a CK which was 73 see reactive protein less than 8 sedimentation rate of 10. Magnesium 1.9. TSH 1.3 and her potassium has normalized at 3.6 up from 3.3 The previous day. At this time I find no obvious source of her neurologic complaint. We did speak about MS along with other autoimmune issues. I will have her follow-up with her primary provider. I feel a neurology evaluation is indicated as an outpatient I will start her on some prednisone as I find no evidence of current infection and if she does havesome autoimmune or neurologic insult such as MS this may be beneficial Clinical Impression: 1. Tingling in extremities No follow-ups on file. New Prescriptions No medications on file Discontinued Medications No medications on file An After Visit Summary was printed and given to the patient with above information. . Prieto Cruz MD 07/07/21911 T [facility]05-20-2022 Emergency department Note* Martine Banda RN - 07/07/2021 7:[address] Cruz at [facility]* Diagnosis Tingling in extremities- Primary Disturbance of skin sensation documented [facility] this [facility]* Diagnosis Pain of finger of left hand Pain in limb [facility]* Diagnosis Low back pain, unspecified back pain laterality, unspecified chronicity, unspecified whether sciatica present- Primary [facility] Diagnosis Low back pain, unspecified back pain laterality, unspecified chronicity, unspecified whether sciatica present- Primary [facility]* Diagnosis Brain fog- Primary Chronic bilateral low back pain, unspecified whether sciatica present Myalgia Mylagia and myositis, unspecified Generalized muscle weakness Muscle weakness (generalized) Paresthesia Disturbance of skin sensation Menorrhagia with irregular cycle Excessive or frequent menstruation Fatigue, unspecified type [facility]* Attachments The following attachments cannot be sent through Care Everywhere. * Numbness and Tingling (Vincentian) [facility] Author Rochelle Farris [facility] Note Date/Time September 07, 2024 11:5 8am [facility] [address] [place] [address], [address] [place] [address] OFFICE VISIT Date of Service: 09/07/24 MR#: [id number] Acct: [id number] Name: MAIDA BELL Rep #: [id number] : 1995 Provider: Dr. Eliu Farris MD Age/Sex: 29/F Location: [facility] Status: Signed Intake Vital Signs 08/20/24 15:06 09/07/24 11:30 Height 5 ft 4 in 5 ft 4 in Weight: 146 lb 2 oz BMI 25.0 BP 120/69 Intake Visit Reasons: 30 WK OB [employer]anner Required: No Is patient in pain?: Yes (pelvic pressure) Allergies Penicillins Allergy (Intermediate, Verified 09/07/24 11:36) Rash clindamycin Adverse Reaction (Intermediate, Verified 09/07/24 11:36) rashes Medications ?Medication ?Instructions ?Recorded ?Confirmed ?Type mv-mn 110-FA 180 mcg-om3 35 mg-dha 1 tab PO .qd 09/07/24 History 25 mg-epa 5 mg-fish oil chew tablet Last Menstrual Period: 02/02/24 Zika: Zika virus screening: Negative : No PFSH PFSH Medical History Wears glasses Anxiety Low iron History of scoliosis Non-smoker Asthma History of stress test Hx of chlamydia infection Surgical History [place] teeth extracted Family History Grandmother Diabetes Paternal Mother Breast cancer, Onset Age: 46 genetic Grandfather COPD (chronic obstructive pulmonary disease) Paternal- smoker Social History adopted: No household members: significant other housing: house current occupational status: employed current occupation: [employer] current occupational exposures/hazards: No pets and animals: Yes pets and animals: dog(s) history of recent travel: No sexually active: Yes Smoking Status: Never smoker alcohol intake: current alcohol intake frequency: 0-2 drinks per day Alcohol type: beer details: Stopped 02/14/24- No alcohol since substance use type: does not use well-balanced diet: daily or most days caffeine: Yes (occasional energy drink) Type: other Number of servings: 1 eating out: rarely or never during the past year weight has: remained stable what type of physical activity do you participate in: none david/mandaeism: None seatbelt use: always do you feel safe at home: Yes additional social history: BF [employer] History 1 Elective abortions Hx Para 0 Spontaneous abortions Hx # Term Pregnancies Ectopic pregnancies Hx # Pregnancies Multiple births # of living children HPI 30 WK OB Details: MAIDA BELL is a 29 year old who presents for routine OB visit. OB Visit EVE Calculator Estimated Delivery Date Method Current WG Current Estimate 11/08/24 LMP (Certain) 31w 1d Expected Delivery Route/Plan Labor Preferences- CB/BF classes: encouraged labor support person: Ángel labor intervention preferences: declined pain management options preferred: [] cut cord/dad catch: cord : yes PP control planned: discussed discussed possible routes of delivery and associated risks: [] special requests: [] Specific Issue/Plans Covid status: [] Flu vaccine: [] Tdap vaccine: given Rhogam: NA LARC form signed: yes movement and labor precautions reviewed. Problem list reviewed and updated with the most current plan of care details and appropriate orders placed. Relevant counseling for the gestational age provided. Continue routine care and follow up unless otherwise noted in visit notes/problem list details Initial Weight: Not Recorded Date -?-?-?-?-?-?-?-?-?-?-?-?- EGA Weight BP Urine Prot -?-?-?-?-?-?-?-?-?-?-?-?- Glucose FHR FuHt Pres Dilation -?-?-?-?-?-?-?-?-?-?-?-?- Effaced St Visit Note 04/03/24 -?-?-?-?-?-?-?-?-?-?-?-?- 8w 5d 118 lb 4 oz 117/79 -?-?-?-?--?-?-?-?-?-?-?-?- 170 -?-?-?-?-?-?-?-?-?-?-?-?- SM- CRL 1cm cons with 8w5d 04/28/24 -?-?-?-?-?-?-?-?-?-?-?-?- 12w 2d 124 lb 131/74 Negative -?-?-?-?-?-?-?-?-?-?-?-?- Negative 150 -?-?-?-?-?-?-?-?-?-?-?-?- Sm- co right low er back discomfort going down into her buttox. 05/28/24 -?-?-?-?-?-?-?-?-?-?-?-?- 16w 4d 128 lb 115/71 Negative -?-?-?-?-?-?-?-?-?-?-?-?- Negative 151 -?-?-?-?-?-?-?-?-?-?-?-?- JJoby- [place] was in [place] and went to ER for heavy vaginal bleeding. was found to have some lumps on the vaginal area. on exam there are several small warty lesions. all healed. no further bleeding. patient reassured. has anatomy scan. 06/25/24 -?-?-?-?-?-?-?-?-?-?-?-?- 20w 4d 132 lb 6 oz 113/74 Nega tive -?-?-?-?-?-?-?-?-?-?-?-?- Negative 150 20 -?-?-?--?-?-?-?-?-?-?-?-?- KW- no vb/zoila triana. benjamin fm. US reviewed. CBE classes reviewed. many stressors with work- insurances maybe changing. will need anesthesia consult for scoliosis. 07/21/24 -?-?-?-?-?-?-?-?-?-?-?-?- 24w 2d 138 lb 2 oz 114/80 Nega tive -?-?-?-?-?-?-?-?-?-?-?-?- Negative 154 23 -?-?-?-?-?-?-?-?-?-?-?-?- MH-No VB, LOF. G ood FM. Larc 08/20/24 -?-?-?-?-?-?-?-?-?-?-?-?- 28w 4d 141 lb 6 oz 119/75 Nega tive -?-?-?-?-?-?-?-?-?-?-?-?- Negative 155 28 -?-?-?-?-?-?-?-?-?-?-?-?- KW- no vb/lof/ct x. good fm. glucose done today. Tdap today 09/07/24 -?-?-?-?-?-?-?-?-?-?-?-?- 31w 1d 146 lb 2 oz 120/69 -?-?-?-?-?-?-?-?-?-?-?-?- 13 31 -?-?-?-?-?-?-?-?-?-?-?-?- Sm- no vb lof go od fm no reuglar ctx co crpal tunnel symptoms ACOG First Trimester First Trimester: Desire for , Alcohol, Tobacco Cessation, Illicit/Recreational Drug/Substance Use, Intimate Partner Violence, Barriers to care, Unstable Housing, Communication Barriers, Environmental/Work Hazards, Anticipated Course of Care, Toxoplasmosis Precations, Use of Any medications, Sexual activity, Exercise, Dental Care, Sauna/Hot tub use, Seat Belt use, Childbirth classes/Hospital facilities, Travel, Indications for Ultrasound and Screening for Aneuploidy; Discussed Coding Level of Care Code OB Routine Diagnoses Anemia in preg-unspec O99.019 Scoliosis, unspecified scoliosis type, unspecified spinal region M41.9 Scoliosis type: unspecified scoliosis Spinal region: unspecified Supervision of high risk in second trimester O09.92 Trimester: second trimester 31 weeks gestation of Z3A.31 Weeks of gestation: 31 weeks FH: breast cancer in first degree relative Z80.3 Asthma J45.909 Assessment and Plan Assessment and Plan (1) Anemia in preg-unspec: Status: Acute Comment: add Fe (2) Scoliosis: Status: Acute Qualifiers: Scoliosis type: unspecified scoliosis Spinal region: unspecified Qualified Code(s): M41.9 - Scoliosis, unspecified Comment: anesthesia consult (3) Supervision of high-risk : Status: Acute Qualifiers: Trimester: second trimester Qualified Code(s): O09.92 - Supervision of high risk , unspecified, second trimester Comment: [id number], EVE 11/08/24, boy Ajay Neal (4) : Status: Acute Qualifiers: Weeks of gestation: 31 weeks Qualified Code(s): Z3A.31 - 31 weeks gestation of Comment: declined NIPT & Carrier testing (5) FH: breast cancer in first degree relative: Status: Acute Comment: Mother @ 46yo, genetic needs to find out what, offered empower screen (6) Asthma: Status: Acute Comment: needs albuterol PRN, rare use. Orders: Orders POC Urinalysis 2 Dip (Clinic) Today 09/07/24 1158 <Electronically signed by Rochelle castelan MD> Date _ Rochelle Farris MD Cosign Signature: Date (if applicable) CC: ~ [facility] Work Phone: Progress note Author Marie Reese [facility] Note Date/Time September 16, 2024 8:59 am [facility] [address] [place] [address], [address] [place] [address] OFFICE VISIT Date of Service: 09/16/24 MR#: [id number] Acct: [id number] Name: MAIDA BELL Rep #: [id number] : 1995 Provider: Dr. Daniela Reilly DO Age/Sex: 29/F Location: [facility] Status: Signed Intake Vital Signs 08/20/24 15:06 09/07/24 11:30 09/16/24 08:42 09/16/24 08:45 Height 5 ft 4 in 5 ft 4 in 5 ft 4 in 5 ft 4 in Weight: 146 lb 8 oz BMI 25.1 BP 131/87 H Intake Visit Reasons: 32 WK OB [employer]anner Required: No Is patient in pain?: No Allergies Penicillins Allergy (Intermediate, Verified 09/16/24 08:42) Rash clindamycin Adverse Reaction (Intermediate, Verified 09/16/24 08:42) rashes Medications ?Medication ?Instructions ?Recorded ?Confirmed ?Type mv-mn 110-FA 180 mcg-om3 35 mg-dha 1 tab PO .qd 09/16/24 History 25 mg-epa 5 mg-fish oil chew tablet famotidine 20 mg tablet (Pepcid) 20 mg PO BID #60 tabs 09/16/24 09/16/24 Rx Last Menstrual Period: 02/02/24 Zika: Zika virus screening: Negative : No PFSH PFSH Medical History Wears glasses Anxiety Low iron History of scoliosis Non-smoker Asthma History of stress test Hx of chlamydia infection Surgical History [place] teeth extracted Family History Grandmother Diabetes Paternal Mother Breast cancer, Onset Age: 46 genetic Grandfather COPD (chronic obstructive pulmonary disease) Paternal- smoker Social History adopted: No household members: significant other housing: house current occupational status: employed current occupation: [employer] current occupational exposures/hazards: No pets and animals: Yes pets and animals: dog(s) history of recent travel: No sexually active: Yes Smoking Status: Never smoker alcohol intake: current alcohol intake frequency: 0-2 drinks per day Alcohol type: beer details: Stopped 02/14/24- No alcohol since substance use type: does not use well-balanced diet: daily or most days caffeine: Yes (occasional energy drink) Type: other Number of servings: 1 eating out: rarely or never during the past year weight has: remained stable what type of physical activity do you participate in: none david/mandaeism: None seatbelt use: always do you feel safe at home: Yes 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 OB Visit EVE Calculator Estimated Delivery Date Method Current WG Current Estimate 11/08/24 LMP (Certain) 32w 3d Expected Delivery Route/Plan Labor Preferences- CB/BF classes: encouraged labor support person: Ángel labor intervention preferences: declined pain management options preferred: [] cut cord/dad catch: cord : yes PP control planned: discussed discussed possible routes of delivery and associated risks: [] special requests: [] Specific Issue/Plans Covid status: [] Flu vaccine: [] Tdap vaccine: given Rhogam: NA LARC form signed: yes movement and labor precautions reviewed. Problem list reviewed and updated with the most current plan of care details and appropriate orders placed. Relevant counseling for the gestational age provided. Continue routine care and follow up unless otherwise noted in visit notes/problem list details Initial Weight: Not Recorded Date -?-?-?-?-?-?-?-?-?-?-?-?- EGA Weight BP Urine Prot -?-?-?-?-?-?-?-?-?-?-?-?- Glucose FHR FuHt Pres Dilation -?-?-?-?-?-?-?-?-?-?-?-?- Effaced St Visit Note 04/03/24 -?-?-?-?-?-?-?-?-?-?-?-?- 8w 5d 118 lb 4 oz 117/79 -?-?-?-?-?-?-?-?-?-?-?-?- 170 -?-?-?-?-?-?-?-?-?-?-?-?- SM- CRL 1cm cons with 8w5d 04/28/24 -?-?-?-?-?-?-?-?-?-?-?-?- 12w 2d 124 lb 131/74 Negative -?-?-?-?-?-?-?-?-?-?-?-?- Negative 150 -?-?-?-?-?-?-?-?-?-?-?-?- Sm- co right low er back discomfort going down into her buttox. 05/28/24 -?-?-?-?-?-?-?-?-?-?-?-?- 16w 4d 128 lb 115/71 Negative -?-?-?-?-?-?-?-?-?-?-?-?- Negative 151 -?-?-?-?-?-?-?-?-?-?-?-?- JV- [place] was [place] and went to ER for heavy vaginal bleeding. was found to have some lumps on the vaginal area. on exam there are several small warty lesions. all healed. no further bleeding. patient reassured. has anatomy scan. 06/25/24 -?-?-?-?-?-?-?-?-?-?-?-?- 20w 4d 132 lb 6 oz 113/74 Nega tive -?-?-?-?-?-?-?-?-?-?-?-?- Negative 150 20 -?-?-?-?-?-?-?-?-?-?-?-?- KW- no vb/crampi ng. good fm. US reviewed. CBE classes reviewed. many stressors with work- insurances maybe changing. will need anesthesia consult for scoliosis. 07/21/24 -?-?-?-?-?-?-?-?-?-?-?-?- 24w 2d 138 lb 2 oz 114/80 Nega tive -?-?-?-?-?-?-?-?-?-?-?-?- Negative 154 23 -?-?-?-?-?-?-?-?-?-?-?-?- MH-No VB, LOF. G ood FM. [facility] 08/20/24 -?-?-?-?-?-?-?-?-?-?-?-?- 28w 4d 141 lb 6 oz 119/75 Nega tive -?-?-?-?-?-?-?-?-?-?-?-?- Negative 155 28 -?-?-?-?-?-?-?-?-?-?-?-?- KW- no vb/lof/ct x. good fm. glucose done today. Tdap today 09/07/24 -?-?-?-?-?-?-?-?-?-?-?-?- 31w 1d 146 lb 2 oz 120/69 -?-?-?-?-?-?-?-?-?-?-?-?- 13 31 -?-?-?-?-?-?-?-?-?-?-?-?- Sm- no vb lof go od fm no reuglar ctx co crpal tunnel symptoms 09/16/24 -?-?-?-?-?-?-?-?-?-?-?-?- 32w 3d 146 lb 8 oz 131/87 Nega tive -?-?-?-?-?-?-?-?-?-?-?-?- Negative 145 31 -?-?-?-?-?-?-?-?-?-?-?-?- JV- pt noticed m ore swelling in her lower extremities since her trip to [facility] last week. She has intermittent headaches that resolve with rest. She also notices rando. vomiting. No onset of nausea. no visual changes or epigastric pain. No clonus noted on exam, does have 1+ pitting edema bilaterally. no epigastric tenderness on exam. pih labs ordered. PRE-e precautions discussed. ACOG First Trimester First Trimester: Desire for , Alcohol, Tobacco Cessation, Illicit/Recreational Drug/Substance Use, Intimate Partner Violence, Barriers to care, Unstable Housing, Communication Barriers, Environmental/Work Hazards, Anticipated Course of Care, Toxoplasmosis Precations, Use of Any medications, Sexual activity, Exercise, Dental Care, Sauna/Hot tub use, Seat Belt use, Childbirth classes/Hospital facilities, Travel, Indications for Ultrasound and Screening for Aneuploidy; Discussed Second Trimester Second Trimester: Signs and Symptoms of Labor, Selecting a care provider, Reproductive Life Planning & Contreception, Care Planning, Depression/Anxiety and Intimate Partner Violence; Discussed Tobacco Cessation Third Trimester Third Trimester: Pain Management Plans, Labor support person(s), Immediate Larc, Movement Monitoring, Signs and Symptoms of Preeclampsia and [employer] ROS Const Denies fever(s) GI Reports as per HPI and Denies abdominal pain Reports as per HPI, Denies abnormal vaginal bleeding, Denies dysuria and Denies vaginal discharge Exam Const General: healthy appearing, comfortable and no acute distress GI Inspection: normal to inspection Palpation: soft and nontender Results POC Urinalysis 2 Dip (Clinic) Office Urine Glucose Negative Last Edit by Mandy Wilkinson on 09/16/24 08: 56 Office Urine Protein Negative Last Edit by Mandy Wilkinson on 09/16/24 08: 56 Coding Level of Care Code Off vis,est,level 3 Diagnoses Anemia in preg-unspec O99.019 Scoliosis, unspecified scoliosis type, unspecified spinal region M41.9 Scoliosis type: unspecified scoliosis Spinal region: unspecified Supervision of high risk in second trimester O09.92 Trimester: second trimester 31 weeks gestation of Z3A.31 Weeks of gestation: 31 weeks FH: breast cancer in first degree relative Z80.3 Asthma J45.909 Assessment and Plan Assessment and Plan (1) Anemia in preg-unspec: Status: Acute Comment: add Fe (2) Scoliosis: Status: Acute Qualifiers: Scoliosis type: unspecified scoliosis Spinal region: unspecified Qualified Code(s): M41.9 - Scoliosis, unspecified Comment: anesthesia consult (3) Supervision of high-risk : Status: Acute Qualifiers: Trimester: second trimester Qualified Code(s): O09.92 - Supervision of high risk , unspecified, second trimester Comment: [id number], EVE 11/08/24, boy Ajay Neal (4) : Status: Acute Qualifiers: Weeks of gestation: 31 weeks Qualified Code(s): Z3A.31 - 31 weeks gestation of Comment: declined NIPT & Carrier testing (5) FH: breast cancer in first degree relative: Status: Acute Comment: Mother @ 46yo, genetic needs to find out what, offered empower screen (6) Asthma: Status: Acute Comment: needs albuterol PRN, rare use. Orders: Orders POC Urinalysis 2 Dip (Clinic) Today CBC W/Diff, Automated Today R51.9 - Headache, unspecified Comprehensive Metabolic Profil Today R51.9 - Headache, unspecified Protein+Creatinine Ratio,Urine Today R51.9 - Headache, unspecified Medications: New famotidine (Pepcid) 20 mg PO BID 60 tabs 4RF 09/16/24 0859 <Electronically signed by Marie Ureña DO> Date _ Marie Reilly DO Cosigner Signature: Date (if applicable) CC: ~ [facility] Work Phone: Reason for referral (narrative)* Consultation (Routine) - New Request Specialty Diagnoses / Procedures Referred By Mya toussaint Referred To Contact Neurology Diagnoses Tingling in extremities Prieto Cruz MD [address] [place] [id number] Shadi Swenson MD [address] [place] [address] Referral ID Status Reason Start Date Expiration Date V isits Requested Visits Authorized [id number] New Request 07/07/2021 08/01/2022 1 1 [facility]No reason for referral information availableWAultman Alliance [facility] Work Phone: Summary Purpose Family History No Family History Records Found Relationship Condition Age at Onset Recorded Date/T austyn grandmother Diabetes mellitus Unknown mother Malignant neoplasm of breast 46 grandfather Chronic obstructive pulmonary disease Unk nown Advance Directives No Advanced Directives Records FoundNo Advanced Directives Records FoundNo Advanced Directives Records FoundNo Advanced Directives Records FoundNo Advanced Directives Records FoundNo Advanced Directives Records FoundNo Advanced Directives Records FoundNo Advanced Directives Records FoundNo Advanced Directives Records Found Reason for Referral Status Reason Specialty Diagnoses / Procedures Referred By Contact Referred To Contact New Request Family Medicine Diagnoses Acute pain of left knee Zan Ilene Francisco, SALES RESEARCH ANALYST-BUTTING SAW OPERATOR [address] [facility] [address] [place] [address] Status Reason Specialty Diagnoses / Procedures Referred By Contact Referred To Contact New Request Orthopaedics Diagnoses Chronic pain of left knee Navdeep Hong MD [address] [place] [phone] Spencer Mejia DO [address] [place] [id number] Status Reason Specialty Diagnoses / Procedures Referred By Contact Referred To Contact New Request Procedures ECG Paul Zelaya MD [address] [place] [id number] Status Reason Specialty Diagnoses / Procedures Referred By Contact Referred To Contact New Request Procedures ECG Joseph Thomas PA-C [address] [place] [id number] Status Reason Specialty Diagnoses / Procedures Referred By Contact Referred To Contact Closed Cardiovascular Medicine Diagnoses POTS (postural orthostatic tachycardia syndrome) Procedures ECHOCARDIOGRAM SC ECHO HEART XTHORACIC,COMPLETE W DOPPLER Flash Grove MD [address] [place] [address] Andres Gal Echocardiograph y [address] [place], [place] [phone] Status Reason Specialty Diagnoses / Procedures Referre d By Contact Referred To Contact Closed Diagnoses POTS (postural orthostatic tachycardia syndrome) Procedures ECG, TREADMILL STRESS (NON-IMAGING) SC CV STRS TST XERS&/OR RX CONT ECG W/SI&R Flash Grove MD [address] [place] [address] Status Reason Specialty Diagnoses / Procedures Referred By Contact Referred To Contact Closed Cardiovascular Medicine Diagnoses Palpitations Procedures HOLTER MONITOR - JAIL Brandon Sandoval II, MD [address] [place] [address] [place] [address] Andres [facility] [address] [place] [id number] Status Reason Specialty Diagnoses / Procedures Referre d By Contact Referred To Contact Closed Ultrasound Diagnoses Acute deep vein thrombosis (DVT) of calf muscle vein of right lower extremity Procedures US DUPLEX EXTREMITY DVT RIGHT Brandon Sandoval II, MD [address] [place] [id number] Andres Ont Ultrasound [address] [place] [phone] Status Reason Specialty Diagnoses / Procedures Referred By Contact Referred To Contact New Request Family Medicine Diagnoses Viral syndrome Yogesh Dewey MD [address] [place] [phone] Clau Guevara APRN-CNP [address] [place] [phone] Specialty Diagnoses / Procedures Referred By Contac t Referred To Contact Diagnoses Brain fog Generalized muscle weakness Paresthesia Procedures MRI BRAIN WITH AND WITHOUT CONTRAST CHG MRI BRAIN BRAIN STEM W/O W/CONTRAST MATERIAL Clau Guevara APRN-CNP [address] [place] [phone] Referral ID Status Reason Start Date Expiration Date V isits Requested Visits Authorized [id number] New Request 01/30/2024 02/23/2025 1 1 Instructions * Patient Instructions* Ilene Zuluaga APRN-CNP - 05/23/2018 2:25 PM EDT Knee Pain Knee pain is very common. It s especially common in active people who put a lot of pressure on their knees, like runners. It affects women more often than men. Your kneecap (patella) is a thick, round bone. It covers and protects the front portion of your knee joint. It moves along a groove in your thighbone (femur) as part of the patellofemoral joint. A layer of cartilage surrounds the underside of your kneecap. This layer protects it from grinding against your femur. When this cartilage softens and breaks down, it can cause knee pain. This is partly because of repetitive stress. The stress irritates the lining of the joint. This causes pain in the underlying bone. What causes knee pain? Many things can cause knee pain. You may have more than one cause. Some of these include: Overuse of the knee joint The kneecap doesn t line up with the tissue around it Damage to small nerves in the area Damage to the ligament-like structure that holds the kneecap in place (retinaculum) Breakdown of the bone under the cartilage Swelling in the soft tissues around the kneecap Injury You might be more likely to have knee pain if you: Exercise a lot Recently increased the intensity of your workouts Have a body mass index (BMI) greater than 25 Have poor alignment of your kneecap Walk with your feet turned overly outward or inward Have weakness in surrounding muscle groups (inner quad or hip adductor muscles) Have too much tightness in surrounding muscle groups (hamstrings or iliotibial band) Have a recent history of injury to the area Are female Symptoms of knee pain This type of knee pain is a dull, aching pain in the front of the knee in the area under and aroundthe kneecap. This pain may start quickly or slowly. Your pain might be worse when you squat, run, or sit for a long time. You might also sometimes feel like your knee is giving out. You may have symptoms in one or both of your knees. Diagnosing knee pain Your healthcare provider will ask about your medical history and your symptoms. Be sure to describeany activities that make your knee pain worse. He or she will look at your knee. This will include tests of your range of motion, strength, and areas of pain of your knee. Your knee alignment will bechecked. Your healthcare provider will need to rule out other causes of your knee pain, such as arthritis. You may need an imaging test, such as an X-ray or MRI. Treatment for knee pain Treatments that can help ease your symptoms may include: Avoiding activities for a while that make your pain worse, returning to activity over time Icing the outside of your knee when it causes you pain Taking nqxw-nsp-[id number] pain medicine Wearing a knee brace or taping your knee to support it Wearing special shoe inserts to help keep your feet in the proper alignment Doing special exercises to stretch and strengthen the muscles around your hip and your knee These steps help most people manage knee pain. But some cases of knee pain need to be treated with surgery. You may need surgery right away. Or you may need it later if other treatments don t work. Your healthcare provider may refer you to an orthopedic surgeon. He or she will talk with you about your choices. Preventing knee pain Losing weight and correcting excess muscle tightness or muscle weakness may help lower your risk. In some cases, you can prevent knee pain. To help prevent a flare-up of knee pain, you do these things: Regularly do all the exercises your doctor or physical therapist advises Support your knee as advised by your doctor or physical therapist Increase training gradually, and ease up on training when needed Have an expert check your gait for running or other sporting activities Stretch properly before and after exercise Replace your running shoes regularly Lose excess weight When to call your healthcare provider Call your healthcare provider right away if: Your symptoms don t get better after a few weeks of treatment You have any new symptoms Date Last Reviewed: 05/19/201619997214-2641 [employer]. [address] [place] [address]. All rights reserved. This information is not intended as a substitute for professional medical care. Always follow yourhealthcare professional's instructions. documented in this encounter History of Present Illness * Ilene Zuluaga APRN-CNP - 05/23/2018 2:25 PM EDT History of Present Illness Patient is here for left knee pain for 3 weeks. No explained injury. State that she stands a lot for work. Has taken Motrin with no relief. Has a compression sleeve. States that she notices the pain the most in the AM and gets better throughout the day. Patient walked back to the room with no deficit in gait. Review of Systems Musculoskeletal: Left knee medial aspect pain All other systems reviewed and are negative. Vitals: Blood pressure 105/70, pulse 56, temperature 99 F (37.2 C), temperature source Temporal, resp. rate 16, height 1.626 m (5' 4), weight 54.4 kg (120 lb), last menstrual period 04/29/2018, [id number] %, not currently . Physical Exam Constitutional: She is oriented to person, place, and time. She appears well- developed and well-nourished. HENT: Head: Normocephalic. Eyes: Pupils are equal, round, and reactive to light. Neck: Normal range of motion. Neck supple. Pulmonary/Chest: Effort normal. Musculoskeletal: Normal range of motion. Left knee: She exhibits normal range of motion, no swelling, no effusion, no ecchymosis, no laceration, no erythema, normal alignment, no bony tenderness, normal meniscus and no MCL laxity. Tenderness found. Medial joint line tenderness noted. No lateral joint line, no MCL and no LCL tenderness noted. Neurological: She is alert and oriented to person, place, and time. Skin: Skin is warm and dry. No rash noted. Nursing note and vitals reviewed. Neurologic Exam Mental Status Oriented to person, place, and time. Cranial Nerves CN III, IV, Pupils are equal, round, and reactive to light. Left Knee Exam Other Effusion: no effusion present PROCEDURE: XR KNEE LEFT 4+ VIEWS 05/23/2018 3:03 PM EDT CLINICAL HISTORY: Pain 3 weeks. COMPARISON: None. TECHNIQUE: 4 views of the left knee. FINDINGS: No acute fractures, dislocations, or radiopaque foreign bodies. Impression IMPRESSION: No acute bony abnormalities. View Images Show images for XR KNEE LEFT 4+ VIEWS Assessment and Plan Patient did not want t stay after xray - she states that she had to get home to the family. I explained that if anything shows on xray I will call her. She voiced understanding and denied any questions. Will send everything over to [facility] for a follow up. documented in this encounter* Clau Guevara APRN-CNP - 07/24/2018 3:30 PM EDT History of Present Illness Chief Complaint Patient presents with Knee Pain Maida is present with ongoing left knee pain for approx 3-4 months. [facility] Eval 05/23/18 - xray was normal. Requesting eval/tx Abdominal Pain Onset of LLQ pain from 07/16/18 intermittently painful - POCT UA in office today to r/o infection Maida Bell is a 22 y.o. pleasant female with the chief complaint of left- sided knee pain. Ongoing left knee pain for approx 3-4 months. [facility] Eval 05/23/18 - xray was normal. Requesting eval/txher pain is described as being along the inner aspect of her left knee. Pain Is not radiating to the lower leg. She pain is rated as a 5/10 - can become severe with twisting knee/rotating knee and kneeling down on knee, very difficult getting up off knee, painful. From sit to stand and starting to walk for 1/2 hour very painful before starting to subside. She denies complaints of numbness or tingling. The pain is exacerbated by: ambulating, stairs, twisting/rotating knee, kneeling down. Pain is not relieved by OTC medication. Patient has [facility] which was showed no acute abnormalities. No MRI's, injections, or P.T for the knee. Patient is here for a evalution/treat if warranted. Maida Bell is a 22 y.o. female who comes in for evaluation of moderate Onset of LLQ pain from 07/16/18 intermittently painful - POCT UA in office today to r/o infection Clinical course intermittent since that time. She describes the pain as cramping, sharp and throbbing and rates it at 5/10. The pain is associated with no associated symptoms per patient. . Additional associated symptoms include: Denies hematuria, urgency, frequency, diarrhea, constipation, melena, vomiting, irregular menses. . Evaluation to date: pap exam approx 2 years ago. . HIGH RISK QUESTIONS: Has there been similar problems in the past - No Fever - No Severe belly pain - Yes: LLQ abdominal pain intermittently. Stool black or bloody - No Vomiting blood or coffee grounds - No Persistent nausea, vomiting, or diarrhea - No Mental status changes - No Past Medical History: Diagnosis Date Asthma Fibromyalgia Palpitations POTS (postural orthostatic tachycardia syndrome) Venous insufficiency Outpatient Medications Prior to Visit Medication Sig Dispense Refill cyclobenzaprine 5 MG Tab tablet TAKE 1 TABLET BY MOUTH EVERY 8 HOURS NEEDED FOR MUSCLE SPASM 5 No facility-administered medications prior to visit. Allergies Allergen Reactions Clindamycin Rash Penicillins Rash Review of Systems Constitutional: Negative for appetite change, chills, diaphoresis, fatigue, fever and unexpected weight change. HENT: Negative for congestion, ear pain, hearing loss, rhinorrhea, sore throat and trouble swallowing. Eyes: Negative for pain, discharge, redness and visual disturbance. Respiratory: Negative for apnea, cough, choking, chest tightness, shortness of breath and wheezing. Cardiovascular: Negative for chest pain, palpitations and leg swelling. Gastrointestinal: Positive for abdominal pain. Negative for abdominal distention, anal bleeding, blood in stool, constipation, diarrhea and nausea. Endocrine: Negative. Genitourinary: Positive for pelvic pain. Negative for decreased urine volume, difficulty urinating,dysuria, flank pain, frequency, hematuria, urgency, vaginal bleeding, vaginal discharge and vaginalpain. Musculoskeletal: Negative for arthralgias, back pain, gait problem, joint swelling, myalgias and neck pain. Positive for left knee pain-see hpi Skin: Negative. Allergic/Immunologic: Negative. Neurological: Negative for dizziness, tremors, syncope, weakness, light- headedness, numbness and headaches. Hematological: Negative. Psychiatric/Behavioral: Negative. Vitals: Blood pressure 104/70, pulse 69, temperature 98.3 F (36.8 C), resp. rate 16, height 1.626 m(5' 4), weight 53.7 kg (118 lb 6.4 oz), last menstrual period 07/03/2018, SpO2 100 %, not currently . Physical Exam Constitutional: She is oriented to person, place, and time. She appears well- developed and well-nourished. Cardiovascular: Normal rate, regular rhythm and normal heart sounds. Pulmonary/Chest: Effort normal and breath sounds normal. Abdominal: Soft. Bowel sounds are normal. She exhibits no distension and no mass. There is no hepatosplenomegaly. There is tenderness in the suprapubic area and left lower quadrant. There is no guarding and no CVA tenderness. Musculoskeletal: Left knee: She exhibits abnormal meniscus (pain with ER on Mikal test, no clicking, locking, or popping). She exhibits normal range of motion, no swelling, no effusion, no ecchymosis, normal alignment, no LCL laxity, no bony tenderness and no MCL laxity. Tenderness found. Medial joint line tenderness noted. Neurological: She is alert and oriented to person, place, and time. Skin: Skin is warm and dry. Capillary refill takes less than 2 seconds. Nursing note and vitals reviewed. Neurologic Exam Mental Status Oriented to person, place, and time. Left Knee Exam Other Effusion: no effusion present Assessment and Plan 1. Intermittent left lower quadrant abdominal pain Normal UA. LLQ pain is low towards suprapubic area. Discussed differential diagnoses-may be ovary related. She plans to establish with DIELECT[employer] OPER[employer] Dr Patino for pap and to discuss pain further if not resolved. - POCT URINALYSIS DIPSTICK AUTOMATED W/O SCOP 2. Acute pain of left knee Advised on use of knee compression during work as she stands for 8 hours. Ice after work. Will tx with Nsaid therapy. Discussed risks (side effects) and benefits of medication & encouraged to read about medication and take meds as directed. I advised her to not take any NSAID (neither Rx or OTC) including Ibuprofen and Naproxen. ASA 81 mgis OK if taking. - naproxen 500 MG Tab tablet; Take 1 tablet by mouth 2 times daily with meals. Dispense: 60 tablet;Refill: 1 Return to clinic if symptoms worsen or fail to improve. * Kristina Sebastian LPN - 07/24/2018 3:30 PM EDT Chief Complaint Patient presents with Knee Pain Maida is present with ongoing left knee pain for approx 3-4 months. [facility] Eval 05/23/18 - xray was normal. Requesting eval/tx Abdominal Pain Onset of LLQ pain from 07/16/18 intermittently painful - POCT UA in office today to r/o infection Maida Bell is a 22 y.o. pleasant female with the chief complaint of left- sided knee pain. Ongoing left knee pain for approx 3-4 months. [facility] Eval 05/23/18 - xray was normal. Requesting eval/txher pain is described as being along the inner aspect of her left knee. Pain Is not radiating to the lower leg. She pain is rated as a 5/10 - can become severe with twisting knee/rotating knee and kneeling down on knee, very difficult getting up off knee, painful. From sit to stand and starting to walk for 1/2 hour very painful before starting to subside. She denies complaints of numbness or tingling. The pain is exacerbated by: ambulating, stairs, twisting/rotating knee, kneeling down. Pain is not relieved by OTC medication. Patient has had any recent XRAY's at [facility] walk in [facility] 05/2018 which was showed no acute abnormalities. No MRI's, injections, or P.T for the knee. Patient is here for a evalution/treat if warranted. Maida Bell is a 22 y.o. female who comes in for evaluation of moderate Onset of LLQ pain from 07/16/18 intermittently painful - POCT UA in office today to r/o infection Clinical course intermittent since that time. She describes the pain as cramping, sharp and throbbing and rates it at 5/10. The pain is associated with no associated symptoms per patient. . Additional associated symptoms include: Denies hematuria, urgency, frequency, diarrhea, constipation, melena, vomiting, irregular menses. . Evaluation to date: pap exam approx 2 years ago. . HIGH RISK QUESTIONS: Has there been similar problems in the past - No Fever - No Severe belly pain - Yes: LLQ abdominal pain intermittently. Stool black or bloody - No Vomiting blood or coffee grounds - No Persistent nausea, vomiting, or diarrhea - No Mental status changes - No documented in this encounter* Navdeep Hong MD - 08/14/2018 2:30 PM EDT Chief Complaint Patient presents with Knee Pain left follow up and reevaluate Maida Bell is a 23 y.o. pleasant female with the chief complaint of left- sided knee pain. The patient states the pain began approximately end of February. her pain is described as being along the inner aspect of her left knee. Pain Is radiating to the lower leg. She pain is rated as a 6/10. She admits to having complaints ofnumbness or tingling. The pain is exacerbated by: crossing her legs, standing and walking. Pain is not relieved by naproxen. Patient has had any recent XRAY's at the [facility] in May. She is here to follow up and states that her knee continues to swell and is painful. She is wearing the compression brace, using ice and elevating her leg as instructed. HPI Left knee pain Patient states that having the pain for the past 6 months. Allergies Allergen Reactions Clindamycin Rash Penicillins Rash Outpatient Medications Prior to Visit Medication Sig Dispense Refill cyclobenzaprine 5 MG Tab tablet TAKE 1 TABLET BY MOUTH EVERY 8 HOURS NEEDED FOR MUSCLE SPASM 5 naproxen 500 MG Tab tablet Take 1 tablet by mouth 2 times daily with meals. 60 tablet 1 No facility-administered medications prior to visit. Past Medical History: Diagnosis Date Asthma Fibromyalgia Palpitations POTS (postural orthostatic tachycardia syndrome) Venous insufficiency family history includes Cancer in an other family member; Diabetes in an other family member; HeartDisease - Other in an other family member. reports that she has never smoked. Her smokeless tobacco use includes chew. She reports that she drinks alcohol. She reports that she does not use drugs. Past Surgical History: Procedure Laterality Date WISDOM TEETH EXTRACTION Review of Systems Visit Vitals BP 98/62 Pulse 77 Temp 98.7 F (37.1 C) (Temporal) Resp 16 Ht 1.626 m (5' 4) Wt 52.5 kg (115 lb 12.8 oz) SpO2 99% BMI 19.88 kg/m Review of Systems Constitutional: Negative for malaise/fatigue. Skin: Negative for itching. Eyes: Negative. Negative for blurred vision. Cardiovascular: Negative. Negative for chest pain. Respiratory: Negative. Negative for cough. Gastrointestinal: Negative. Negative for heartburn and blood in stool. Genitourinary: Negative. Musculoskeletal: Positive for joint pain. Neurological: Negative. Negative for dizziness. Psychiatric: Negative. Negative for depression. The patient is not nervous/anxious. Allergy/Immunology: Negative. Negative for environmental allergies. Lymph/Heme: Negative. Negative for bruises/bleeds easily. Physical Exam Physical Exam Cardiovascular: Normal rate and regular rhythm. Musculoskeletal: Left knee: Tenderness found. Medial joint line and MCL tenderness noted. Vitals reviewed. Assessment & Plan Problem List Items Addressed This Visit None Visit Diagnoses Chronic pain of left knee - Primary Relevant Medications predniSONE 20 MG Tab tablet Other Relevant Orders AMB REFERRAL TO ORTHOPAEDICS Navdeep Hong MD 08/14/2018, 3:35 PM * Yolanda Reddy MA - 08/14/2018 2:30 PM EDT Maida Bell is a 23 y.o. pleasant female with the chief complaint of left- sided knee pain. The patient states the pain began approximately end of February. her pain is described as being along the inner aspect of her left knee. Pain Is radiating to the lower leg. She pain is rated as a 6/10. She admits to having complaints ofnumbness or tingling. The pain is exacerbated by: crossing her legs, standing and walking. Pain is not relieved by naproxen. Patient has had any recent XRAY's at the [facility] Walk In clinic in May. She is here to follow up and states that her knee continues to swell and is painful. She is wearing the compression brace, using ice and elevating her leg as instructed. documented in this encounter* Ashlie Deras APRN-CNP - 04/14/2019 9:30 AM EST Spoke with patient as she was checking in. She has hx of POTS. Within the last couple weeks she hasbeen experiencing higher heart rates with chest pains. Also has SOB with episodes. States albuterolinhaler not helpful. Reports previous syncopal episodes for which she has been evaluated in the ER.I educated on the limitation of care and testing in the walk in clinic. Patient would be better served in the ER. She does have a consignee, however he is located in [place]. Suggested calling his office for further advice if she chooses not to visit ER. Her heart rate was regular in the 120s and she was in not acute distress. No chest pain at the time of conversation with the patient. She was stable when leaving the office. documented in this encounter* Clau Guevara APRN-CNP - 08/26/2019 10:00 AM EDT History of Present Illness Maida Bell is a 24 y.o. female who comes in with the following complaint(s): Chest Pain; Shortness of Breath; and Syncope Maida has a dx of POTS, asthma, anxiety, GERD, orthostatic hypotension. She is requesting evaluation from PCP due to ongoing concerns of chest tightness/squeezing pains, SOB at rest and exertion, exhaustion, very fatigued. Syncope episode 08/23/19 at her boyfriend's house, she was alone sitting on the couch - symptoms prior to syncope: lightheaded, watery eyes, SOB. She is unaware how long she was unconscious for. Approx 2 months ago - new onset of confusion. Approx one year ago - syncope episode with driving. History of cardiology evaluation for 10 years at [facility]. She did discontinue going for a few years but she is trying to take better care of self. ER evaluation 03/2019 - lab work up w/ cardiac work up, Troponin less than 0.02. D-DIMER was elevated. CT angio's of chest - no PE. ER physician dx - costochondritis. RX'ed prednisone for 5 days , she does not remember if provided relief. 08/19/19 - established with Dr. Grove in [facility] for eval. She expressed symptoms of palpations, racing heart beat, chest pressure, dizziness, occasional syncope episodes, SOB. EKG done in office: NSR with sinus arrhthymias. Dr. Grove expressed to keep self well hydrated by drinking lots of water (states she is filling up water bottle x 5). Increasing the salt intake. RX: knee high compression stockings, prevention of fluid accumlation and keep circulation stable. He ordered 2-D echo to assess LV function and plain stress test - she is waiting to hear from scheduling. She will be seeing Dr. Sandoval 09/11/[address] Grove - she felt he wasn't listening to her concerns. 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 If she feels over heated, SOB occurs regularly at her job- moves to area with cool air and takes periods of resting. Feels heart racing throughout her shift, at home, out in public, symptoms occur - chest pressure/squeezing stays constant - some days worse than others. Pain in substernal area radiates to bilateral axilla (left side is worse). She states her left side of chest has some soreness - contributes to muscle pulled recently. Numbness/tingling radiating down into bilateral arms. admits to having nausea, denies vomiting,admits to having diaphoresis before syncope episode, admits to having shortness of breath, admits to having palpatations. Asthma screenin - she has rescue inhaler. She does not use as regularly as she should, states she is using up to 2-3 times per week. Anxiety: 1.Buspirone 5 mg TID was prescribed post ER - she did not take as she feels anxiety is notthe main concern. Past Medical History: Diagnosis Date Asthma Fibromyalgia Palpitations POTS (postural orthostatic tachycardia syndrome) Venous insufficiency Outpatient Medications Prior to Visit Medication Sig Dispense Refill albuterol 108 (90 Base) MCG/ACT Aero Soln inhaler Inhale 1 puff every 6 hours as needed for Wheezing. cyclobenzaprine 5 MG Tab tablet TAKE 1 TABLET BY MOUTH EVERY 8 HOURS NEEDED FOR MUSCLE SPASM 5 COMPRESSION STOCKING -RX 15-20 mmhg (Patient not taking: Reported on 08/26/2019) 1 Each 0 busPIRone 5 MG tablet Take 5 mg by mouth 3 times daily. naproxen 500 MG Tab tablet Take 1 tablet by mouth 2 times daily with meals. (Patient not taking: Reported on 08/19/2019) 60 tablet 1 predniSONE 20 MG tablet Take 1 tablet by mouth 2 times daily. (Patient not taking: Reported on 08/19/2019) 10 tablet 0 No facility-administered medications prior to visit. Allergies Allergen Reactions Clindamycin Rash Penicillins Rash Review of Systems Constitutional: Negative for appetite change, chills, diaphoresis, fatigue, fever and unexpected weight change. HENT: Negative for congestion, ear pain, hearing loss, rhinorrhea, sore throat and trouble swallowing. Eyes: Negative for pain, discharge, redness and visual disturbance. Respiratory: Positive for shortness of breath. Negative for apnea, cough, choking, chest tightness and wheezing. Cardiovascular: Positive for palpitations. Negative for chest pain and leg swelling. Gastrointestinal: Negative for abdominal distention, abdominal pain, anal bleeding, blood in stool,constipation, diarrhea and nausea. Endocrine: Negative. Genitourinary: Negative for decreased urine volume, difficulty urinating, dysuria, flank pain, frequency, hematuria and urgency. Musculoskeletal: Negative for arthralgias, back pain, gait problem, joint swelling, myalgias and neck pain. Skin: Negative. Allergic/Immunologic: Negative. Neurological: Positive for syncope. Negative for dizziness, tremors, weakness, light-headedness, numbness and headaches. Hematological: Negative. Psychiatric/Behavioral: Negative. Vitals: Blood pressure 122/78, pulse 78, temperature 99.2 F (37.3 C), temperature source Temporal, resp. rate 16, height 1.626 m (5' 4), weight 52.2 kg (115 lb), SpO2 98 %, not currently . Physical Exam Vitals signs and nursing note reviewed. Constitutional: Appearance: Normal appearance. She is normal weight. Eyes: Pupils: Pupils are equal, round, and reactive to light. Cardiovascular: Rate and Rhythm: Normal rate and regular rhythm. Pulses: Normal pulses. Heart sounds: Normal heart sounds. Pulmonary: Effort: Pulmonary effort is normal. Breath sounds: Normal breath sounds. No wheezing, rhonchi or rales. Abdominal: General: Bowel sounds are normal. There is no distension. Palpations: Abdomen is soft. There is no mass. Tenderness: There is no abdominal tenderness. Musculoskeletal: Right lower leg: No edema. Left lower leg: No edema. Skin: General: Skin is warm and dry. Neurological: Mental Status: She is alert and oriented to person, place, and time. Cranial Nerves: No cranial nerve deficit. Sensory: No sensory deficit. Motor: No weakness. Gait: Gait normal. Psychiatric: Mood and Affect: Mood normal. Behavior: Behavior normal. Thought Content: Thought content normal. Judgment: Judgment normal. Neurologic Exam Mental Status Oriented to person, place, and time. Cranial Nerves CN III, IV, Pupils are equal, round, and reactive to light. Assessment and Plan ICD-10-CM 1. POTS (postural orthostatic tachycardia syndrome) I49.8 2. SOB (shortness of breath) R06.02 3. Mild intermittent asthma without complication J45.20 4. Syncope, unspecified syncope type R55 Advised patient she is not to drive any vehicles due to recent syncopal episodes. She has seen Dr Grove and will be following up with consignee Dr Sandoval in 3 weeks. She as diagnostic testing order but has not received a call to schedule. I did write her off of work until her testing and work up are completed as the heat in her factories appears to be exacerbating her symptoms. Call or return to clinic if symptoms worsen or fail to improve. * Kristina Sebastian, LAWANDA - 08/26/2019 10:00 AM EDT Maida Bell is a 24 y.o. female who comes in with the following complaint(s): Chest Pain; Shortness of Breath; and Syncope Maida has a dx of POTS, asthma, anxiety, GERD, orthostatic hypotension. She is requesting evaluation from PCP due to ongoing concerns of chest tightness/squeezing pains, SOB at rest and exertion, exhaustion, very fatigued. Syncope episode 08/23/19 at her boyfriend's house, she was alone sitting on the couch - symptoms prior to syncope: lightheaded, watery eyes, SOB. She is unaware how long she was unconscious for. Approx 2 months ago - new onset of confusion. Approx one year ago - syncope episode with driving. History of cardiology evaluation for 10 years at [facility]. She did discontinue going for a few years but she is trying to take better care of self. ER evaluation 03/2019 - lab work up w/ cardiac work up, Troponin less than 0.02. D-DIMER was elevated. CT angio's of chest - no PE. ER physician dx - costochondritis. RX'ed prednisone for 5 days , she does not remember if provided relief. 08/19/19 - established with Dr. Grove in [facility] for eval. She expressed symptoms of palpations, racing heart beat, chest pressure, dizziness, occasional syncope episodes, SOB. EKG done in office: NSR with sinus arrhthymias. Dr. Grove expressed to keep self well hydrated by drinking lots of water (states she is filling up water bottle x 5). Increasing the salt intake. RX: knee high compression stockings, prevention of fluid accumlation and keep circulation stable. He ordered 2-D echo to assess LV function and plain stress test - she is waiting to hear from scheduling. She will be seeing Dr. Sandoval 09/11/[address] Grove - she felt he wasn't listening to her concerns. 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 If she feels over heated, SOB occurs regularly at her job- moves to area with cool air and takes periods of resting. Feels heart racing throughout her shift, at home, out in public, symptoms occur - chest pressure/squeezing stays constant - some days worse than others. Pain in substernal area radiates to bilateral axilla (left side is worse). She states her left side of chest has some soreness - contributes to muscle pulled recently. Numbness/tingling radiating down into bilateral arms. admits to having nausea, denies vomiting,admits to having diaphoresis before syncope episode, admits to having shortness of breath, admits to having palpatations. Asthma screenin - she has rescue inhaler. She does not use as regularly as she should, states she is using up to 2-3 times per week. Anxiety: 1.Buspirone 5 mg TID was prescribed post ER - she did not take as she feels anxiety is notthe main concern. BP 122/78 (BP Location: Left arm, BP Position: Sitting) Pulse 78 Temp 99.2 F (37.3 C) (Temporal) Resp 16 Ht 1.626 m (5' 4) Wt 52.2 kg (115 lb) BMI 19.74 kg/m Smoking Status Former Smoker Body mass index is 19.74 kg/m . documented in this encounter* Clau Guevara APRN-[employer] - 09/22/2019 8:30 AM EDT History of Present Illness Maida Bell is a 24 y.o. female who comes in for follow-up of the following complaints: Chief Complaint Patient presents with Palpitations 1 month follow up - POTS - managed by Dr. 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 She states some nights she can't adhere to additional breaks. Burning sensation reported 09/15/19 via telephone call- burning sensation subsided same day. Dr. Sandoval is managing POTS syndrome - completed Holter monitor 09/21/19 and mailed back to cardiology. Tilt table was performed as well. Past Medical History: Diagnosis Date Asthma Fibromyalgia Palpitations POTS (postural orthostatic tachycardia syndrome) Venous insufficiency Outpatient Medications Prior to Visit Medication Sig Dispense Refill albuterol 108 (90 Base) MCG/ACT Aero Soln inhaler Inhale 1 puff every 6 hours as needed for Wheezing. cyclobenzaprine 5 MG Tab tablet TAKE 1 TABLET BY MOUTH EVERY 8 HOURS NEEDED FOR MUSCLE SPASM 5 midodrine 5 MG tablet Take 1 tablet by mouth 3 times daily. 270 tablet 3 COMPRESSION STOCKING -RX 15-20 mmhg (Patient not taking: Reported on 08/26/2019) 1 Each 0 No facility-administered medications prior to visit. Allergies Allergen Reactions Clindamycin Rash Penicillins Rash Review of Systems Constitutional: Negative for appetite change, chills, diaphoresis, fatigue, fever and unexpected weight change. HENT: Negative for congestion, ear pain, hearing loss, rhinorrhea, sore throat and trouble swallowing. Eyes: Negative for pain, discharge, redness and visual disturbance. Respiratory: Negative for apnea, cough, choking, chest tightness, shortness of breath and wheezing. Cardiovascular: Positive for palpitations. Negative for chest pain and leg swelling. Gastrointestinal: Negative for abdominal distention, abdominal pain, anal bleeding, blood in stool,constipation, diarrhea and nausea. Endocrine: Negative. Genitourinary: Negative for decreased urine volume, difficulty urinating, dysuria, flank pain, frequency, hematuria and urgency. Musculoskeletal: Negative for arthralgias, back pain, gait problem, joint swelling, myalgias and neck pain. Skin: Negative. Allergic/Immunologic: Negative. Neurological: Negative for dizziness, tremors, syncope, weakness, light- headedness, numbness and headaches. Hematological: Negative. Psychiatric/Behavioral: Negative. Vitals: Blood pressure 108/70, pulse 79, resp. rate 16, height 1.626 m (5' 4), weight 51.8 kg (114lb 3.2 oz), last menstrual period 08/19/2019, SpO2 100 %, not currently . Physical Exam Vitals signs and nursing note reviewed. Constitutional: Appearance: Normal appearance. She is normal weight. Cardiovascular: Rate and Rhythm: Normal rate and regular rhythm. Heart sounds: Normal heart sounds. Pulmonary: Effort: Pulmonary effort is normal. Breath sounds: Normal breath sounds. Neurological: Mental Status: She is alert and oriented to person, place, and time. Psychiatric: Mood and Affect: Mood normal. Behavior: Behavior normal. Thought Content: Thought content normal. Judgment: Judgment normal. Neurologic Exam Mental Status Oriented to person, place, and time. Assessment and Plan ICD-10-CM 1. POTS (postural orthostatic tachycardia syndrome) I49.8 Will continue under care of Cardiology at this time. Clarification gave on taking the Midodrine as the pharmacist told her not to take it before bed. I advised that her three doses should be at least3 hours apart with the last dose being 3-4 hours before bed. Return to clinic as needed. * Kristina Sebastian LPN - 09/22/2019 8:30 AM EDT Chief Complaint Patient presents with Palpitations 1 month follow up - POTS - managed by Dr. Sandoval Maida Bell is a 24 y.o. 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 She states some nights she can't adhere to additional breaks. Burning sensation reported 09/15/19 via telephone call- burning sensation subsided same day. Dr. Sandoval is managing POTS syndrome - completed Holter monitor 09/21/19 and mailed back to cardiology. Tilt table was performed as well. Outpatient Medications Prior to Visit Medication Sig Dispense Refill albuterol 108 (90 Base) MCG/ACT Aero Soln inhaler Inhale 1 puff every 6 hours as needed for Wheezing. cyclobenzaprine 5 MG Tab tablet TAKE 1 TABLET BY MOUTH EVERY 8 HOURS NEEDED FOR MUSCLE SPASM 5 midodrine 5 MG tablet Take 1 tablet by mouth 3 times daily. 270 tablet 3 COMPRESSION STOCKING -RX 15-20 mmhg (Patient not taking: Reported on 08/26/2019) 1 Each 0 No facility-administered medications prior to visit. BP 108/70 (BP Location: Left arm, BP Position: Sitting) Pulse 79 Resp 16 Ht 1.626 m (5' 4) Wt 51.8 kg (114 lb 3.2 oz) BMI 19.60 kg/m Smoking Status Former Smoker Body mass index is 19.6 kg/m . documented in this encounter* Bayron Bo MD - 05/24/2020 2:45 PM EDT HPI Maida Bell is a 24 y.o. female who presents today for had concerns including Dysmenorrhea (Pt reports very painful cycles. At times can be heavy, or spotting lasts for one day only.) Reported that she has a high tolerance for pain but this has been very debilitating for her.She will like some relief of her symptoms. She wants to get something on board prior to her next period. Her periods a regular but go from heavy flow to light flow and when they are heavy, it is very heavy with passage of clots. She is wondering if she has endometriosis. Was on OCPs as a teenager and stopped. Thinks she has tried depot provera in the past and it causedher to gain some weight. No other concerns reported at this time LMP: Patient's last menstrual period was 05/12/2020 (approximate). No results found for: PAPSMEAR OB HISTORY: OB History Para Term AB Living 0 0 0 0 0 0 SAB TAB Ectopic Molar Multiple Live Births 0 0 0 0 0 0 HISTORY/ALLERGIES Allergies Allergen Reactions Clindamycin Rash Penicillins Rash Past Medical History: Diagnosis Date Asthma Fibromyalgia Palpitations POTS (postural orthostatic tachycardia syndrome) Venous insufficiency Past Surgical History: Procedure Laterality Date WISDOM TEETH EXTRACTION Social History Tobacco Use Smoking status: Former Smoker Smokeless tobacco: Never Used Substance Use Topics Alcohol use: Yes Comment: occasional Drug use: No Family History Problem Relation Age of Onset Cancer Other Diabetes Other Heart Disease - Other Other Breast Cancer Mother Myocardial Infarction Maternal Grandfather Diabetes Paternal Grandmother Diabetes Paternal Grandfather Current Outpatient Medications: albuterol 108 (90 Base) MCG/ACT Aero Soln inhaler, Inhale 1 puff every 6 hours as needed for Wheezing., Disp: , Rfl: COMPRESSION STOCKING -RX, 15-20 mmhg, Disp: 1 Each, Rfl: 0 cyclobenzaprine 5 MG Tab tablet, TAKE 1 TABLET BY MOUTH EVERY 8 HOURS NEEDED FOR MUSCLE SPASM, Disp: , Rfl: 5 midodrine 10 MG tablet, Take 1 tablet by mouth 3 times daily., Disp: 270 tablet, Rfl: 2 ibuprofen 800 MG tablet, Take 1 tablet by mouth every 8 hours as needed for Moderate Pain or SeverePain., Disp: 50 tablet, Rfl: 1 norelgestromin-ethinyl estradiol (Xulane) 150-35 MCG/24HR Patch Weekly, Place 1 patch on skin every7 days. Apply a new patch eack week for 3 weeks (21 total days). Do not apply a patch during the fourth week., Disp: 12 patch, Rfl: 3 ROS Review of Systems Constitutional: Negative. HENT: Negative. Eyes: Negative. Respiratory: Negative. Cardiovascular: Negative. Gastrointestinal: Negative. Genitourinary: Negative. Musculoskeletal: Negative. Skin: Negative. Neurological: Negative. Psychiatric/Behavioral: Negative. All other systems reviewed and are negative. EXAM BP 111/69 (BP Location: Right arm, BP Position: Sitting) Pulse 84 Ht 5' 4 (1.626 m) Wt 111 lb 12.8 oz (50.7 kg) BMI 19.19 kg/m Smoking Status Former Smoker Physical Exam: Deferred Diagnosis/Plan: Maida was seen today for dysmenorrhea. Diagnoses and all orders for this visit: Irregular periods - norelgestromin-ethinyl estradiol (Xulane) 150-35 MCG/24HR Patch Weekly; Place 1 patch on skin every 7 days. Apply a new patch eack week for 3 weeks (21 total days). Do not apply a patch during the fourth week. We talked about the menstrual cycle and were able to establish that she has regular but sometimes heavy periods. Patient is willing to try control to regulate this Dysmenorrhea - norelgestromin-ethinyl estradiol (Xulane) 150-35 MCG/24HR Patch Weekly; Place 1 patch on skin every 7 days. Apply a new patch eack week for 3 weeks (21 total days). Do not apply a patch during the fourth week. - Discontinue: ibuprofen 800 MG tablet; Take 1 tablet by mouth every 6 hours as needed for ModeratePain or Severe Pain. - ibuprofen 800 MG tablet; Take 1 tablet by mouth every 8 hours as needed for Moderate Pain or Severe Pain. I discussed pain during the menstrual cycle as I discussed the possibility of ovarian cyst formation and resolution. I discussed pain management for that. I discussed the work up and diagnosis of endometriosis as I shared with patient that pain management with control is usually the mainstay. I shared with her that it is a diagnosis of suspicion and confirmed by histology. For her cramping with periods, I encouraged her to start taking her pain medication prior to her periods starting as that helps to manage her pain a lot better. Take the medication with food. We will revisit in 3 months and see how she is doing. Encounter for initial prescription of transdermal patch hormonal contraceptive device - norelgestromin-ethinyl estradiol (Xulane) 150-35 MCG/24HR Patch Weekly; Place 1 patch on skin every 7 days. Apply a new patch eack week for 3 weeks (21 total days). Do not apply a patch during the fourth week. - POCT URINE Patch Counseling Discussed risks and benefits of patch. Risks include but are not limited to DVT, stroke, PE, OK, hypertension, and possibly increased risk of breast cancer. Possible side effects include weight gain and headaches. Patch should be changed weekly for 3 weeks and no patch placed on the 4th week. Use condoms for the first 2-4 weeks after starting the patch. Patch does not protect from STI and condoms should still be used to decrease this risk. Reviewed ACHES warning signs. Can cause skin irritation. If at the 3 month froilan, patch is not working for patient, we will revisit alternative forms of control Screening examination for STD (sexually transmitted disease) - CHLAMYDIA/GONOCOCCUS, ALISON; Future - TRICHOMANAS VAGINALIS, ALISON; Future Will treat as needed Answered all of patient's questions and she verbalized understanding Shared decision making; patient in agreement Total time spent with this patient was approximately 30 minutes. Bayron Bo MD 05/24/2020 documented in this encounter Assessments Diagnosis Acute pain of left knee- Primary Diagnosis Intermittent left lower quadrant abdominal pain- Primary Acute pain of left knee Diagnosis Chronic pain of left knee- Primary Pain in joint, lower leg Diagnosis Chest pain, unspecified type- Primary Diagnosis Chest pain, unspecified type Tachycardia Tachycardia, unspecified Diagnosis Chest pain, unspecified type Costochondritis Tietze's disease Diagnosis POTS (postural orthostatic tachycardia syndrome) Tachycardia, unspecified SOB (shortness of breath) Shortness of breath Mild intermittent asthma without complication Unspecified asthma Syncope, unspecified syncope type Diagnosis POTS (postural orthostatic tachycardia syndrome) Tachycardia, unspecified Diagnosis Palpitations Diagnosis Acute deep vein thrombosis (DVT) of calf muscle vein of right lower extremity Diagnosis Viral syndrome- Primary Unspecified viral infection, in conditions classified elsewhere and of unspecified site Diagnosis Syncope and collapse Orthostatic hypotension POTS (postural orthostatic tachycardia syndrome) Tachycardia, unspecified Diagnosis Irregular periods- Primary Irregular menstrual cycle Dysmenorrhea Encounter for initial prescription of transdermal patch hormonal contraceptive device Screening examination for STD (sexually transmitted disease) Screening examination for venereal disease Discharge Instructions * Attachments The following attachments cannot be sent through Care Everywhere. * Chest Pain (Vincentian) documented in this encounter* Attachments The following attachments cannot be sent through Care Everywhere. * Costochondritis (Vincentian) * Chest Pain What to Do if You Have ([facility]) (Vincentian) documented in this encounter* Attachments The following attachments cannot be sent through Care Everywhere. * Viral Infections (Vincentian) documented in this encounter Chief Complaint and Reason for Visit Chief Complaint Admit Date New OB, LMP 02/01, EVE 11/08/24 April 03, 2024 9:07am 12 wk OB April 28, 2024 1:5 5pm Reason for Visit Admit Date Asthma April 03, 2024 9:07am FH: breast cancer in first degree relati ve April 03, 2024 9:07am Lupus April 03, 2024 9:07am April 03, 2024 9:07am Supervision of high-risk Febru traci 2024 9:07am Tilted uterus April 03, 2024 9:07am Asthma April 28, 2024 1:5 5pm FH: breast cancer in first degree relati ve April 28, 2024 1:55pm Lupus April 28, 2024 1:5 5pm April 28, 2024 1:5 5pm Supervision of high-risk April 28, 2024 1:55pm Tilted uterus April 28, 2024 1:5 5pm Chief Complaint Admit Date New OB, LMP 02/01, EVE 11/08/24 April 03, 2024 9:07am 12 wk OB April 28, 2024 1:5 5pm 16wk OB May 28, 2024 3:3 2pm 20wk OB June 25, 2024 2:51pm 24wk ob July 21, 2024 2:49p m Reason for Visit Admit Date Asthma April 03, 2024 9:07am FH: breast cancer in first degree relati ve April 03, 2024 9:07am April 03, 2024 9:07am Supervision of high-risk Febru [email or web address] 9:07am Tilted uterus April 03, 2024 9:07am Lupus April 03, 2024 9:07am Asthma April 28, 2024 1:5 5pm FH: breast cancer in first degree relati ve April 28, 2024 1:55pm April 28, 2024 1:5 5pm Supervision of high-risk April 28, 2024 1:55pm Tilted uterus April 28, 2024 1:5 5pm Lupus April 28, 2024 1:5 5pm Asthma May 28, 2024 3:3 2pm FH: breast cancer in first degree relati ve May 28, 2024 3:32pm 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) May 28, 2024 3:32pm May 28, 2024 3:3 2pm Supervision of high-risk May 28, 2024 3:32pm Tilted uterus May 28, 2024 3:3 2pm Asthma June 25, 2024 2:51pm FH: breast cancer in first degree relati ve June 25, 2024 2:51pm 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) June 25, 2024 2:51pm June 25, 2024 2:51pm Scoliosis June 25, 2024 2:51pm Supervision of high-risk June [id number] 2:51pm Tilted uterus June 25, 2024 2:51pm Asthma July 21, 2024 2:49p m FH: breast cancer in first degree relati ve July 21, 2024 2:49pm 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) July 21, 2024 2:49pm July 21, 2024 2:49p m Scoliosis July 21, 2024 2:49p m Supervision of high-risk July 21, 2024 2:49pm Tilted uterus July 21, 2024 2:49p m Chief Complaint Admit Date 12 wk OB April 28, 2024 1:5 5pm 16wk OB May 28, 2024 3:3 2pm 20wk OB June 25, 2024 2:51pm 24wk ob July 21, 2024 2:49p m 28wk ob/glucose August 20, 2024 2:59p m Reason for Visit Admit Date Asthma April 28, 2024 1:5 5pm FH: breast cancer in first degree relati ve April 28, 2024 1:55pm April 28, 2024 1:5 5pm Supervision of high-risk April 28, 2024 1:55pm Tilted uterus April 28, 2024 1:5 5pm Lupus April 28, 2024 1:5 5pm Asthma May 28, 2024 3:3 2pm FH: breast cancer in first degree relati ve May 28, 2024 3:32pm 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) May 28, 2024 3:32pm May 28, 2024 3:3 2pm Supervision of high-risk May 28, 2024 3:32pm Tilted uterus May 28, 2024 3:3 2pm Asthma June 25, 2024 2:51pm FH: breast cancer in first degree relati ve June 25, 2024 2:51pm 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) June 25, 2024 2:51pm June 25, 2024 2:51pm Scoliosis June 25, 2024 2:51pm Supervision of high-risk June 252024 2:51pm Tilted uterus June 25, 2024 2:51pm 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) July 21, 2024 2:49pm July 21, 2024 2:49p m Scoliosis July 21, 2024 2:49p m Supervision of high-risk July 21, 2024 2:49pm Tilted uterus July 21, 2024 2:49p m Asthma August 20, 2024 2:59p m FH: breast cancer in first degree relati ve August 20, 2024 2:59pm 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) August 20, 2024 2:59pm August 20, 2024 2:59p m Scoliosis August 20, 2024 2:59p m Supervision of high-risk August 20, 2024 2:59pm Tilted uterus August 20, 2024 2:59p m Chief Complaint Admit Date 16wk OB May 28, 2024 3:3 2pm 20wk OB June 25, 2024 2:51pm 24wk ob July 21, 2024 2:49p m 28wk ob/glucose August 20, 2024 2:59p m Reason for Visit Admit Date Asthma May 28, 2024 3:3 2pm FH: breast cancer in first degree relati ve May 28, 2024 3:32pm 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) May 28, 2024 3:32pm May 28, 2024 3:3 2pm Supervision of high-risk May 28, 2024 3:32pm Tilted uterus May 28, 2024 3:3 2pm Asthma June 25, 2024 2:51pm FH: breast cancer in first degree relati ve June 25, 2024 2:51pm 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) June 25, 2024 2:51pm June 25, 2024 2:51pm Scoliosis June 25, 2024 2:51pm Supervision of high-risk June 252024 2:51pm Tilted uterus June 25, 2024 2:51pm 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) July 21, 2024 2:49pm July 21, 2024 2:49p m Scoliosis July 21, 2024 2:49p m Supervision of high-risk July 21, 2024 2:49pm Tilted uterus July 21, 2024 2:49p m Asthma August 20, 2024 2:59p m FH: breast cancer in first degree relati ve August 20, 2024 2:59pm 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) August 20, 2024 2:59pm August 20, 2024 2:59p m Scoliosis August 20, 2024 2:59p m Supervision of high-risk August 20, 2024 2:59pm Tilted uterus August 20, 2024 2:59p m Chief Complaint Admit Date 16wk OB May 28, 2024 3:3 2pm 20wk OB June 25, 2024 2:51pm 24wk ob July 21, 2024 2:49p m 28wk ob/glucose August 20, 2024 2:59p m 30 WK OB September 07, 2024 11:2 6am Reason for Visit Admit Date Asthma May 28, 2024 3:3 2pm FH: breast cancer in first degree relati ve May 28, 2024 3:32pm May 28, 2024 3:3 2pm Supervision of high-risk May 28, 2024 3:32pm 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) May 28, 2024 3:32pm Tilted uterus May 28, 2024 3:3 2pm Asthma June 25, 2024 2:51pm FH: breast cancer in first degree relati ve June 25, 2024 2:51pm June 25, 2024 2:51pm Scoliosis June 25, 2024 2:51pm Supervision of high-risk June 252024 2:51pm 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) June 25, 2024 2:51pm Tilted uterus June 25, 2024 2:51pm July 21, 2024 2:49p m Scoliosis July 21, 2024 2:49p m Supervision of high-risk July 21, 2024 2:49pm 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) July 21, 2024 2:49pm Tilted uterus July 21, 2024 2:49p m Asthma August 20, 2024 2:59p m FH: breast cancer in first degree relati ve August 20, 2024 2:59pm August 20, 2024 2:59p m Scoliosis August 20, 2024 2:59p m Supervision of high-risk August 20, 2024 2:59pm 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) August 20, 2024 2:59pm Tilted uterus August 20, 2024 2:59p m Anemia in preg-unspec September 07, 2024 11 :26am Asthma September 07, 2024 11:2 6am FH: breast cancer in first degree relati ve September 07, 2024 11:26am September 07, 2024 11:2 6am Scoliosis September 07, 2024 11:2 6am Supervision of high-risk September 07, 2024 11:26am Chief Complaint Admit Date 16wk OB May 28, 2024 3:3 2pm 20wk OB June 25, 2024 2:51pm 24wk ob July 21, 2024 2:49p m 28wk ob/glucose August 20, 2024 2:59p m 30 WK OB September 07, 2024 11:2 6am 32 WK OB September 16, 2024 8:39 am Reason for Visit Admit Date Asthma May 28, 2024 3:3 2pm FH: breast cancer in first degree relati ve May 28, 2024 3:32pm May 28, 2024 3:3 2pm Supervision of high-risk May 28, 2024 3:32pm 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) May 28, 2024 3:32pm Tilted uterus May 28, 2024 3:3 2pm Asthma June 25, 2024 2:51pm FH: breast cancer in first degree relati ve June 25, 2024 2:51pm June 25, 2024 2:51pm Scoliosis June 25, 2024 2:51pm Supervision of high-risk June 252024 2:51pm 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) June 25, 2024 2:51pm Tilted uterus June 25, 2024 2:51pm July 21, 2024 2:49p m Scoliosis July 21, 2024 2:49p m Supervision of high-risk July 21, 2024 2:49pm 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) July 21, 2024 2:49pm Tilted uterus July 21, 2024 2:49p m Asthma August 20, 2024 2:59p m FH: breast cancer in first degree relati ve August 20, 2024 2:59pm August 20, 2024 2:59p m Scoliosis August 20, 2024 2:59p m Supervision of high-risk August 20, 2024 2:59pm 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) August 20, 2024 2:59pm Tilted uterus August 20, 2024 2:59p m Anemia in preg-unspec September 07, 2024 11 :26am Asthma September 07, 2024 11:2 6am FH: breast cancer in first degree relati ve September 07, 2024 11:26am September 07, 2024 11:2 6am Scoliosis September 07, 2024 11:2 6am Supervision of high-risk September 07, 2024 11:26am Anemia in preg-unspec September 16, 2024 8: 39am Asthma September 16, 2024 8:39 am FH: breast cancer in first degree relati ve September 16, 2024 8:39am September 16, 2024 8:39 am Scoliosis September 16, 2024 8:39 am Supervision of high-risk September 16, 2024 8:39am Additional Source Comments INFORMATION SOURCE (unrecogn ized section and content) DATE CREATED AUTHOR 03/05/2018 [facility] DATE CREATED AUTHOR AUTHOR'S ORGANIZ ATION 03/09/2018 [facility] DATE CREATED AUTHOR AUTHOR'S ORGANIZ ATION 07/28/2019 [facility] DATE CREATED AUTHOR AUTHOR'S ORGANIZ ATION 07/07/2023 [facility] DATE CREATED AUTHOR AUTHOR'S ORGANIZ ATION 01/22/2024 [facility] DATE CREATED AUTHOR AUTHOR'S ORGANIZ ATION 02/01/2024 [facility] DATE CREATED AUTHOR AUTHOR'S ORGANIZ ATION 02/12/2024 [facility] DATE CREATED AUTHOR AUTHOR'S ORGANIZ ATION 06/15/2024 [facility] DATE CREATED AUTHOR AUTHOR'S ORGANIZ ATION 09/26/2024 [facility] Reason for Visit (unrecogniz ed section and content) Reason Comments Knee Pain left knee hurts and gm at times, has been going on for 2 to 3 weeks. Reason Comments Knee Pain Maida is present wi th ongoing left knee pain for approx 3-4 months. [facility] Eval 05/23/18 - xray was normal. Requesting eval/tx Abdominal Pain Onset of LLQ pain fr om 07/16/18 intermittently painful - POCT UA in office today to r/o infection Reason Comments Knee Pain Reason Comments Knee Pain left follow up and r eevaluate Reason Comments Chest Pain x4 days; got worse w hile at work this evening. Shortness of breath, describes chest pain as pressure rated at a 7/10, tachycardic last week for 3 days untreated. Reason Comments Chest Pain Reason Comments Chest Pain Pt reported CP for t he past week. Pt denies any cough or cold symptoms. Pt has hx of POTS and stated sometimes when i am at work i will be in the middle of doing something and i feel like my heart is racing. Reason Comments Chest Pain Shortness of Breath Syncope Status Reason Specialty Diagnoses / Procedures Referred By Contact Referred To Contact Closed Cardiovascular Medicine Diagnoses POTS (postural orthostatic tachycardia syndrome) Procedures ECHOCARDIOGRAM SC ECHO HEART XTHORACIC,COMPLETE W DOPPLER Flash Grove MD [address] [address] [facility] Echocardiograph y [address] [place] [phone] Status Reason Specialty Diagnoses / Procedures Referre d By Contact Referred To Contact Closed Diagnoses POTS (postural orthostatic tachycardia syndrome) Procedures ECG, TREADMILL STRESS (NON-IMAGING) SC CV STRS TST XERS&/OR RX CONT ECG W/SI&R Flash Grove MD [address] [address] Status Reason Specialty Diagnoses / Procedures Referred By Contact Referred To Contact Closed Cardiovascular Medicine Diagnoses Palpitations Procedures HOLTER MONITOR - TREE TRIMMING SUPERVISOR Brandon Sandoval II, MD [address] [place] [address] Andres [facility] [address] [place] [id number] Reason Comments Palpitations 1 month follow up - POTS - managed by Dr. Sandoval Status Reason Specialty Diagnoses / Procedures Referre d By Contact Referred To Contact Closed Ultrasound Diagnoses Acute deep vein thrombosis (DVT) of calf muscle vein of right lower extremity Procedures US DUPLEX EXTREMITY DVT RIGHT Brandon Sandoval II, MD [address] [place] [address] [facility] [address] [place] [address] Reason Comments COVID-19 symptoms since night, sore throat, coughing, headaches, and increasing shortness of breath Status Reason Specialty Diagnoses / Procedures Referred By Contact Referred To Contact Closed Cardiovascular Medicine Diagnoses Syncope and collapse Orthostatic hypotension POTS (postural orthostatic tachycardia syndrome) Procedures TILT TABLE TEST Brandon Sandoval II, MD [address] [place] [address] Andres [facility] [address] [place] [address] Reason Comments Dysmenorrhea Pt reprots very pain ful cycles. At times can be heavy, or spotting lasts for one day only. Status Reason Specialty Diagnoses / Procedures Referre d By Contact Referred To Contact Closed Diagnoses Encounter to establish care System, Provider Not In Bayron Bo MD [address] [place] [phone] Reason Comments Extremity Weakness Patient being treate d for tooth abscess with Z-pack, seen at [facility] yesterday for complaints of weakness, testing all negative. Patient states I just don't feel right. Complains of extremity weakness. Reason Comments Back Pain Lumbar pain, referre d by [facility] ED Reason Comments Follow-up Increased back pain Reason Comments Back Pain Musculoskeletal Pain Yogesh Dewey MD - 03/28/2020 2:25 AM Oleksandr Blanco RN - 03/28/2020 2:13 AM EST ED Notes (unrecognized secti on and content) Emergency Department Report [facility] EMERGENCY DEPARTMENT Service Date:.03/28/20 PCP: Clau Guevara Chief Complaint: Chief Complaint Patient presents with COVID-19 symptoms since saturday night, sore throat, coughing, headaches, and increasing shortness of breath HPI Maida Bell is a 24 y.o. female presents to the ED today due to sore throat cough headaches. Patient also notes some shortness of breath with this is secondary to pain. Patient did have a positive coronavirus exposure. Patient denies fevers or chills denies bowel bladder dysfunction. Patient denies weakness. Review of Systems: Review of Systems All other systems reviewed and are negative. Past Medical History: Past Medical History: Diagnosis Date Asthma Fibromyalgia Palpitations POTS (postural orthostatic tachycardia syndrome) Venous insufficiency Past Surgical History: Past Surgical History: Procedure Laterality Date WISDOM TEETH EXTRACTION Allergies: Allergies Allergen Reactions Clindamycin Rash Penicillins Rash Medications: Patient's Medications New Prescriptions No medications on file Previous Medications ALBUTEROL 108 (90 BASE) MCG/ACT AERO SOLN INHALER Inhale 1 puff every 6 hours as needed for Wheezing. COMPRESSION STOCKING -RX 15-20 mmhg CYCLOBENZAPRINE 5 MG TAB TABLET TAKE 1 TABLET BY MOUTH EVERY 8 HOURS NEEDED FOR MUSCLE SPASM MIDODRINE 10 MG TABLET Take 1 tablet by mouth 3 times daily. Modified Medications No medications on file Discontinued Medications No medications on file Family History: Family History Problem Relation Age of Onset Cancer Other Diabetes Other Heart Disease - Other Other Social History: Social History Socioeconomic History Marital status: Single Spouse name: Not on file Number of children: Not on file Years of education: Not on file Highest education level: Not on file Occupational History Not on file Tobacco Use Smoking status: Former Smoker Smokeless tobacco: Never Used Substance and Sexual Activity Alcohol use: Yes Comment: occasional Drug use: No Sexual activity: Not Currently control/protection: None Other Topics Concern Service Not Asked Blood Transfusions Not Asked Caffeine Concern Not Asked Occupational Exposure Not Asked Hobby Hazards Not Asked Sleep Concern Not Asked Stress Concern Not Asked Weight Concern Not Asked Special Diet Not Asked Back Care Not Asked Exercise Not Asked Bike Helmet Not Asked Seat Belt Not Asked Domestic Violence No Social History Narrative Not on file Social Determinants of Health Financial Resource Strain: Difficulty of Paying Living Expenses: Not on file Food Insecurity: Worried About Running Out of Food in the Last Year: Not on file Ran Out of Food in the Last Year: Not on file Transportation Needs: Lack of Transportation (Medical): Not on file Lack of Transportation (Non-Medical): Not on file Physical Activity: Days of Exercise per Week: Not on file Minutes of Exercise per Session: Not on file Stress: Feeling of Stress : Not on file Social Connections: Frequency of Communication with Friends and Family: Not on file Frequency of Social Gatherings with Friends and Family: Not on file Attends [employer] Services: Not on file Active Member of Clubs or Organizations: Not on file Attends Club or Organization Meetings: Not on file Marital Status: Not on file Intimate Partner Violence: Fear of Current or Ex-Partner: Not on file Emotionally Abused: Not on file Physically Abused: Not on file Sexually Abused: Not on file Physical Exam: Physical Exam Constitutional: Appearance: Normal appearance. HENT: Head: Normocephalic and atraumatic. Right Ear: Tympanic membrane and external ear normal. Left Ear: Tympanic membrane and external ear normal. Nose: Nose normal. Mouth/Throat: Mouth: Mucous membranes are moist. Pharynx: Oropharynx is clear. Eyes: Conjunctiva/sclera: Conjunctivae normal. Pupils: Pupils are equal, round, and reactive to light. Cardiovascular: Rate and Rhythm: Normal rate and regular rhythm. Pulses: Normal pulses. Pulmonary: Effort: Pulmonary effort is normal. No respiratory distress. Breath sounds: Normal breath sounds. No wheezing. Abdominal: General: Abdomen is flat. Bowel sounds are normal. There is no distension. Palpations: Abdomen is soft. Tenderness: There is no abdominal tenderness. There is no guarding or rebound. Musculoskeletal: General: Normal range of motion. Cervical back: Normal range of motion and neck supple. Skin: General: Skin is warm and dry. Capillary Refill: Capillary refill takes less than 2 seconds. Neurological: General: No focal deficit present. Mental Status: She is alert and oriented to person, place, and time. Mental status is at baseline. Cranial Nerves: No cranial nerve deficit. Sensory: No sensory deficit. Motor: No weakness. Coordination: Coordination normal. Psychiatric: Mood and Affect: Mood normal. Behavior: Behavior normal. Vital Signs During ED Visit Patient Vitals for the past 24 hrs: BP Temp Temp src Pulse SpO2 Height 03/28/20 0207 73 98 % 03/28/20 0200 1.626 m (5' 4) 03/28/20 0156 109/72 98.3 F (36.8 C) Oral Differential Diagnosis: Upper respiratory infection, lower respiratory infection, influenza, asthma, environmental irritant, allergy Orders/Results: Orders Placed This Encounter NOVEL CORONAVIRUS LAB 1 - NASOPHARYNGEAL AMB REFERRAL TO FAMILY PRACTICE Results for orders placed or performed during the hospital encounter of 03/28/20 NOVEL CORONAVIRUS LAB 1 - NASOPHARYNGEAL Specimen: NASOPHARYNGEAL; Fluid/Swab Result Value Ref Range SARS COV 2 RNA, QL REAL TIME RT PCR NOT DETECTED NOT DETECTED NARRATIVE -1 This test was performed using isothermal ALISON and has been approved as Emergency Use Authorization (EUA) for the qualitative detection [id number] nucleic acid. Radiographic Imaging No orders to display Moderate Sedation Procedure: No Procedures: Procedures ED Summary: Age less than 50 yes Heart rate less than 100 yes Oxygen saturation room air less than 95% no Unilateral leg swelling no Hemoptysis no Recent trauma or surgery no Symptomatology is likely viral in nature. Patient has no meningeal signs. We will discharge patient home in stable condition with follow-up on outpatient basis. Patient oxygen saturation is been normal. Advised patient that the early rotavirus testing although negative does not exclude coronavirus infection. Advised to continue taking precautions. The patient has worsening symptoms, any other complaints she can return for reevaluation. Clinical Impression: 1. Viral syndrome No follow-ups on file. New Prescriptions No medications on file Discontinued Medications No medications on file An After Visit Summary was printed and given to the patient with above information. . . Yogesh Dewey MD 03/28/20316 COVID swabs obtained and walked to lab documented in this encounter Care Teams (unrecognized sec tion and content) Winch Driver Relationship Specialty Start Date End Date Clau Guevara APRN-CNP PCP - General Certified Nurse Practitioner 03/18/17 Winch Driver Relationship Specialty Start Date End Date Clau Guevara APRN-CNP PCP - General Certified Nurse Practitioner 03/18/17 Winch Driver Relationship Specialty Start Date End Date Clau Guevara CNP [address] [place] [address] PCP - General Nurse Practitioner 07/06/21 Winch Driver Relationship Specialty Start Date End Date Clau Guevara CNP [address] [place] [address] PCP - General Nurse Practitioner 07/06/21 Winch Driver Relationship Specialty Start Date End Date Clau Guevara APRN-IVANNA PCP - General Certified Nurse Practitioner 03/18/17 Team Status: Inactive Member Role Status Dates Dr. Rochelle Farris MD Attending Provider Active Start: April 03, 2024 End: April 03, 2024 Team Status: Inactive Member Role Status Dates Dr. Rochelle Farris MD Attending Provider Active Start: April 03, 2024 End: April 03, 2024 Dr. Rochelle Farris MD Referring Provider Active Start: April 03, 2024 End: April 03, 2024 Team Status: Inactive Member Role Status Dates Dr. Rochelle Farris MD Attending Provider Active Start: April 28, 2024 End: April 28, 2024 Team Status: Inactive Member Role Status Dates Dr. Rochelle Farris MD Attending Provider Active Start: April 28, 2024 End: April 28, 2024 Dr. Rochelle Farris MD Referring Provider Active Start: April 28, 2024 End: April 28, 2024 Team Status: Inactive Member Role Status Dates Dr. Marie Reilly DO Attending Provider Activ e Start: May 28, 2024 End: May 28, 2024 Team Status: Inactive Member Role Status Dates Mamie Sandoval CNM Attending Provider Active S tart: June 25, 2024 End: June 25, 2024 Team Status: Inactive Member Role Status Dates Maci Coello [employer], [employer]GET[employer]-C Attending Provider Active Start: July 21, 2024 End: July 21, 2024 Team Status: Inactive Member Role/Relationship Status Dates Dr. Rochelle Farris MD Attending Provider Active Start: April 28, 2024 End: April 28, 2024 Team Status: Inactive Member Role/Relationship Status Dates Dr. Rochelle Farris MD Attending Provider Active Start: April 28, 2024 End: April 28, 2024 Dr. Rochelle Farris MD Referring Provider Active Start: April 28, 2024 End: April 28, 2024 Team Status: Inactive Member Role/Relationship Status Dates Dr. Marie Reilly DO Attending Provider Activ e Start: May 28, 2024 End: May 28, 2024 Team Status: Inactive Member Role/Relationship Status Dates Mamie Sandoval CNM Attending Provider Active S tart: June 25, 2024 End: June 25, 2024 Team Status: Inactive Member Role/Relationship Status Dates Maci Coello NP, [employer]-C Attending Provider Active Start: July 21, 2024 End: July 21, 2024 Team Status: Inactive Member Role/Relationship Status Dates Mamie Sandoval CNM Attending Provider Active S tart: August 20, 2024 End: August 20, 2024 Team Status: Active Member Role/Relationship Status Dates Dr. Rochelle Farris MD Attending Provider Active Start: August 20, 2024 Team Status: Inactive Member Role/Relationship Status Dates Dr. Marie Reilly DO Attending Provider Activ e Start: May 28, 2024 End: May 28, 2024 Team Status: Inactive Member Role/Relationship Status Dates Mamie Sandoval CNM Attending Provider Active S tart: June 25, 2024 End: June 25, 2024 Team Status: Inactive Member Role/Relationship Status Dates Maci Coello NP [employer]-C Attending Provider Active Start: July 21, 2024 End: July 21, 2024 Team Status: Inactive Member Role/Relationship Status Dates Mamie Sandoval CNM Attending Provider Active S tart: August 20, 2024 End: August 20, 2024 Team Status: Inactive Member Role/Relationship Status Dates Dr. Rochelle Farris MD Attending Provider Active Start: August 20, 2024 End: August 20, 2024 Team Status: Inactive Member Role/Relationship Status Dates Dr. Rochelle Farris MD Attending Provider Active Start: September 07, 2024 End: September 07, 2024 Team Status: Inactive Member Role/Relationship Status Dates Dr. Marie Reilly DO Attending Provider Activ e Start: September 16, 2024 End: September 16, 2024 Team Status: Active Member Role/Relationship Status Dates Dr. Marie Reilly DO Attending Provider Activ e Start: September 16, 2024 Team Status: Inactive Member Role/Relationship Status Dates Dr. Marie Reilly DO Attending Provider Activ e Start: September 16, 2024 End: September 16, 2024 Goals (unrecognized section and content) Goals may be documented in a n alternate sectionGoals may be documented in an alternate sectionGoals may be documented in an alternate sectionGoals may be documented in an alternate sectionGoals may be documented in an alternate sectionGoals may be documented in an alternate sectionGoals may be documented in an alternate section FOR RECORDS PERTAINING TO PATIENTS WHO ARE OR HAVE BEEN ENROLLED IN A CHEMICAL DEPENDENCY/SUBSTANCEABUSE PROGRAM, SOME INFORMATION MAY BE OMITTED. This clinical summary was aggregated from multiple sources. Caution should be exercised in using it in the provision of clinical care. This summary normalizes information from multiple sources, and as a consequence, information in this document may materially change the coding, format and clinical context of patient data. In addition, data may be omitted in some cases. CLINICAL DECISIONS SHOULD BE BASED ON THE PRIMARY CLINICAL RECORDS. [facility] [employer] provides no warranty or guarantee of the accuracy or completeness of information in this document.
[2024-09-27 17:15] VITALS: BP 124/78; PULSE 63
[2024-09-27 17:20] VITALS: BMI 25.2
--- NOTE | 2024-09-27 17:23 | US_ITS ---
PROCEDURE: OB LIMITED (NO BIOMETRICS) 09/27/2024 REASON FOR EXAM: BLEEDING TECHNIQUE: OB LIMITED (NO BIOMETRICS) COMPARISON: None available. FINDINGS Limited sonographic examination of the uterus for viability. There is an intrauterine with anterior location of the placenta which is not low-lying. The heart rate measures 147 beats per minute. The total amniotic fluid index measures 14.2 cm. The cervix is not visualized. US/OB Limited (No Biometrics) IMPRESSION: Live intrauterine with detectable heart rate and anterior, non low-ly ing location of the placenta. Reading [facility]
[2024-09-27 17:46] LABS: Color, Urine Yellow (Yellow); Glucose, Dipstick Normal (Normal); Ketone-Dipstick Negative (Negative); Leukocyte Esterase-Dipstick 500 /ul (Negative); Nitrite-Dipstick Negative (Negative); Occult Blood-Urine Negative /ul (Negative); Protein-Dipstick 15 mg/dl (Negative); Specific Gravity, Urine 1.020 (1.002-1.030); Urine Bilirubin Dipstick Negative (Negative)
--- NOTE | 2024-09-27 19:08 | OB.TRI.PN_ITS ---
Progress Notes Date of Service: 09/27/24 Progress Note: Patient presents for triage evaluation secondary to blood with wiping and low back pain at 34 weeks. FHT: 130 Moderate variability reactive no decelerations category I tracing [place]: no Contractions Assessment and plan: UA/culture, likely UTI. Macrobid started. US pending-if normal consider Discharge. If shows abruption will refer to physician for care due to gestational age. Reactive NST. Has follow up appt on in office. See problem list details for additional plan information. Laboratory Studies: Laboratory Tests 09/27/24 Range/Units 17:10 Urine Color Yellow (Yellow) Urine Clarity Sl. Cloudy (Clear) Urine pH 6.0 (5.0 - 8.0) Ur Specific [place] 1.020 (1.002-1.030) Urine Protein 15 H (Negative) mg/dl Urine Glucose (UA) Normal (Normal) mg/dl Urine Ketones Negative (Negative) mg/dl Urine Occult Blood Negative (Negative) /ul Urine Nitrite Negative (Negative) Urine Bilirubin Negative (Negative) mg/dL Urine Urobilinogen Normal (Normal) mg/dl Ur Leukocyte Esterase 500 H (Negative) /ul Charges/Coding Multi Select Codes Urinary/Genital Urinary/Genital CPT Codes: 96188-49 non-stress test Interp Assessment & Plan (1) UTI (urinary tract infection) during : COMMENT: macrobid, cx sent (2) Anemia in preg-unspec: COMMENT: add Fe (3) Scoliosis: QUALIFIERS: Scoliosis type: unspecified scoliosis Spinal region: unspecified Qualified Code(s): M41.9 - Scoliosis, unspecified COMMENT: anesthesia consult (4) Supervision of high-risk : QUALIFIERS: Trimester: second trimester Qualified Code(s): O09.92 - Supervision of high risk , unspecified, second trimester COMMENT: [id number], EVE 11/08/24, boy Ajayalfonso Neal (5) : QUALIFIERS: Weeks of gestation: 31 weeks Qualified Code(s): Z3A.31 - 31 weeks gestation of COMMENT: declined NIPT & Carrier testing (6) FH: breast cancer in first degree relative: COMMENT: Mother @ 46yo, genetic needs to find out what, offered empower screen (7) Asthma: COMMENT: needs albuterol PRN, rare use.
== END 2024-09-27 21:08 | disposition home or self-care (01) ==
LOC: WPOUT 17:03 → WP 17:04
PROVIDERS: Referring Provider Advanced Practice Midwife; Visit Provider Advanced Practice Midwife
DX: O23.43 Unspecified infection of urinary tract in pregnancy, third trimester (principal); Z3A.31 31 weeks gestation of pregnancy; O99.013 Anemia complicating pregnancy, third trimester; O99.891 Other specified diseases and conditions complicating pregnancy; M41.9 Scoliosis, unspecified; Z80.3 Family history of malignant neoplasm of breast; O99.513 Diseases of the respiratory system complicating pregnancy, third trimester; J45.909 Unspecified asthma, uncomplicated
CPT/HCPCS: 59025; 59050; 76815; 81002; 99221; G0378

== ENCOUNTER → 2024-10-12 | Outpatient (CLI) | payer OTHER, MEDICAID, SELFPAY | END | disposition home or self-care (01) | PROVIDERS: Referring Provider Advanced Practice Midwife; Visit Provider Advanced Practice Midwife | DX: O09.93 Supervision of high risk pregnancy, unspecified, third trimester (principal); Z3A.36 36 weeks gestation of pregnancy | CPT/HCPCS: 87081 ==

== ENCOUNTER 2024-10-21 19:05 | Inpatient (IN) | payer MEDICAID, SELFPAY ==
[2024-10-21] VITALS (21 sets, daily range): BP systolic 120–141; BP diastolic 72–92; PULSE 48–74; RESP 14–16; TEMP 36.4–37.2; O2SAT 98–99; BMI 26.7
[2024-10-21 14:59] LABS: Hematocrit 32.5 % (37-47); Hemoglobin 11.3 g/dL (12.0-15.0); Mean Corp Hgb Conc 34.8 g/dL (32-36); Mean Corpuscular Volume 93.4 fL (81-99); Mean Platelet Vol. 9.4 fl (6.2-12.0); Platelet Count 204 K/mm3 (150-450); RBC Distribution Width CV 12.9 % (11.6-14.6); RBC Distribution Width SD 43.6 fl (35.1-43.9); Red Blood Count 3.48 M/mm3 (4.2-5.4); White Blood Count 9.4 K/mm3 (4.4-11.0)
[2024-10-21 15:25] LABS: Creatinine, Urine (random) 29.30 mg/dL (28.00-217.00); Protein, Urine (Random) 13.1 mg/dL (0.0-12.0); Protein:Creat Ratio 447 mg/g CRE (0-200)
[2024-10-21 15:27] LABS: AST(SGOT) 23 U/L (<=31); Alanine Aminotransfer ALT/SGPT 10 U/L (<=34); Uric Acid 4.3 mg/dL (2.6-6.0)
--- NOTE | 2024-10-21 18:44 | PCM.HP.OB ---
HPI - General HPI Narrative SELENA BELL, is a 29 y/o @ 37 weeks 3 days who presents to L&D from office with nausea and elevated blood pressures. Prot:cr is 400's. The diagnosis of pre-eclampsia was given and the patient is now admitted for induction of labor. In the office her cervix is closed thick and high. The plan is for cytotec. Maternal Data Information EVE Calculator Estimated Delivery Date Method Current WG Current Estimate 11/08/24 LMP (Certain) 37w 3d PFSH PFS Medical History Wears glasses Anxiety Low iron History of scoliosis Non-smoker Asthma History of stress test Hx of chlamydia infection Home Medications ?Medication ?Instructions ?Recorded ?Last Taken ?Type mv-mn 110-FA 180 mcg-om3 35 mg-dha 1 tab PO .qd 03/24/24 Unknown History 25 mg-epa 5 mg-fish oil chew tablet famotidine 20 mg tablet (Pepcid) 20 mg PO BID #60 tabs 09/16/24 Unknown Rx Slow Fe PO DAILY 10/01/24 Unknown History Allergy/AdvReac Type Severity Reaction Status Date / Time Penicillins Allergy Intermediate Rash Verified 10/21/24 13:53 clindamycin AdvReac Intermediate rashes Verified 10/21/24 13:53 Family History Grandmother Diabetes Paternal Mother Breast cancer, Onset Age: 46 genetic Grandfather COPD (chronic obstructive pulmonary disease) Paternal- smoker Surgical History [place] teeth extracted Social History adopted: No household members: significant other housing: house current occupational status: employed current occupation: [employer] current occupational exposures/hazards: No pets and animals: Yes pets and animals: dog(s) history of recent travel: No sexually active: Yes Smoking Status: Never smoker alcohol intake: current alcohol intake frequency: 0-2 drinks per day Alcohol type: beer details: Stopped 02/14/24- No alcohol since substance use type: does not use well-balanced diet: daily or most days caffeine: Yes (occasional energy drink) Type: other Number of servings: 1 eating out: rarely or never during the past year weight has: remained stable what type of physical activity do you participate in: none david/methodist: None seatbelt use: always do you feel safe at home: Yes additional social history: BF [employer] History 1 Elective abortions Hx Para 0 Spontaneous abortions Hx # Term Pregnancies Ectopic pregnancies Hx # Pregnancies Multiple births # of living children Visit Details Expected Delivery Route/Plan Labor Preferences- CB/BF classes: encouraged labor support person: Ángel labor intervention preferences: declined pain management options preferred: [] cut cord/dad catch: cord : yes PP control planned: discussed discussed possible routes of delivery and associated risks: [] special requests: [] Plans Covid status: [] Flu vaccine: [] Tdap vaccine: given Rhogam: NA LARC form signed: yes movement and labor precautions reviewed. Problem list reviewed and updated with the most current plan of care details and appropriate orders placed. Relevant counseling for the gestational age provided. Continue routine care and follow up unless otherwise noted in visit notes/problem list details OB Flowsheet Initial Weight: Not Recorded Date <del>?</del> EGA Weight BP Urine Prot <del>?</del> Glucose FHR FuHt Pres Dilation <del>?</del> Effaced St Visit Note 04/03/24 <del>?</del> 8w 5d 118 lb 4 oz 117/79 <del>?</del> 170 <del>?</del> SM- CRL 1cm cons with 8w5d 04/28/24 <del>?</del> 12w 2d 124 lb 131/74 Negative <del>?</del> Negative 150 <del>?</del> Sm- co right lower back discomfort going down into her [place]. 05/28/24 <del>?</del> 16w 4d 128 lb 115/71 Negative <del>?</del> Negative 151 <del>?</del> SUSANNA- pt was in [place] and went to ER for heavy vaginal bleeding. was found to have some lumps on the vaginal area. on exam there are several small warty lesions. all healed. no further bleeding. patient reassured. has anatomy scan. 06/25/24 <del>?</del> 20w 4d 132 lb 6 oz 113/74 Negative <del>?</del> Negative 150 20 <del>?</del> KW- no vb/cramping. good fm. US reviewed. CBE classes reviewed. many stressors with work- insurances maybe changing. will need anesthesia consult for scoliosis. 07/21/24 <del>?</del> 24w 2d 138 lb 2 oz 114/80 Negative <del>?</del> Negative 154 23 <del>?</del> MH-No VB, LOF. Good FM. Larc 08/20/24 <del>?</del> 28w 4d 141 lb 6 oz 119/75 Negative <del>?</del> Negative 155 28 <del>?</del> KW- no vb/lof/ctx. good fm. glucose done today. Tdap today 09/07/24 <del>?</del> 31w 1d 146 lb 2 oz 120/69 <del>?</del> 13 31 <del>?</del> Sm- no vb lof good fm no reuglar ctx co crpal tunnel symptoms 09/16/24 <del>?</del> 32w 3d 146 lb 8 oz 131/87 Negative <del>?</del> Negative 145 31 <del>?</del> JV- pt noticed more swelling in her lower extremities since her trip to [facility] last week. She has intermittent headaches that resolve with rest. She also notices rando. vomiting. No onset of nausea. no visual changes or epigastric pain. No clonus noted on exam, does have 1+ pitting edema bilaterally. no epigastric tenderness on exam. [facility] labs ordered. PRE-e precautions discussed. 10/01/24 <del>?</del> 34w 4d 148 lb 8 oz 135/79 Negative <del>?</del> Negative 140 33 <del>?</del> SM- no vb lof good fm n oregular ctx had uti this week. 10/12/24 <del>?</del> 36w 1d 153 lb 1 oz 129/83 Negative <del>?</del> Negative 45 145 36 0 <del>?</del> KW- no vb/lof/ctx. good fm. gbs today 10/21/24 <del>?</del> 37w 3d 157 lb 2 oz 142/88 Negative <del>?</del> Negative 140 37 0 <del>?</del> JV- pressures up to day and she has some nasuea. sending to L&D for evaluation. ROS Constitutional Constitutional: Denies change in weight, fatigue, fever(s), headache(s), poor appetite or weakness Eyes Eyes: Denies blurry vision, change in vision, seeing flashes or spots in vision ENT HEENT: Denies dizziness, headache(s), loss taste/smell or sore throat Cardiovascular Cardiovascular: Denies chest pain, dizziness, dyspnea, irregular heart rhythm, leg edema, palpitations, rapid heart rate or vomiting Respiratory/Chest Respiratory/Chest: Denies chest tightness, cough, dyspnea or breast pain Gastrointestinal Gastrointestinal: Denies abdominal pain, anorexia, constipation, cramping, diarrhea, hemorrhoids, vomiting or weight changes Genitourinary Genitourinary: Denies dysuria, flank pain, genital lesions, genital pain, urinary frequency or urinary urgency Musculoskeletal Musculoskeletal: Denies back pain, difficulty walking, joint pain, limited range of motion, muscle cramps or numbness Integumentary Integumentary: Denies lesions or unusual bruising Neurologic Neurologic: Denies abnormal movements, abnormal speech, dizziness, numbness, seizure-like activity or syncope Psychiatric Psychiatric: Denies anxiety, behavioral changes, change in appetite, change in libido, cognitive impairment, confusion, depression, difficulty concentrating, hallucinations or suicidal thoughts Endocrine Endocrinology: Denies excessive sweating, polydipsia or polyuria Hematologic/Lymphatic Hematologic/Lymphatic: Denies easy bleeding, easy bruising or lymphadenopathy Allergic/Immunologic Allergic/Immunologic: Denies itchy eyes, lip swelling, seasonal rhinorrhea, rhinitis, throat swelling, tongue swelling, eczemia, wheezing or asthma Vital Signs Vital Signs Vital Signs: 10/21/24 14:35 10/21/24 14:35 10/21/24 14:40 Temperature Temperature Source Pulse Rate 62 56 L Respiratory Rate Blood Pressure BP Systolic BP Diastolic Pulse Ox 98 10/21/24 14:40 10/21/24 14:45 10/21/24 14:45 Temperature Temperature Source Pulse Rate 56 L Respiratory Rate Blood Pressure BP Systolic BP Diastolic Pulse Ox 99 99 10/21/24 14:49 10/21/24 14:49 10/21/24 14:49 Temperature Temperature Source Tympanic Pulse Rate 59 L Respiratory Rate Blood Pressure 129/82 H BP Systolic 129 BP Diastolic 82 Pulse Ox 10/21/24 14:49 10/21/24 14:49 10/21/24 14:49 Temperature 98.9 F Temperature Source Pulse Rate Respiratory Rate 14 Blood Pressure BP Systolic BP Diastolic Pulse Ox 99 10/21/24 15:04 10/21/24 15:04 10/21/24 15:19 Temperature Temperature Source Pulse Rate 69 Respiratory Rate Blood Pressure 123/82 H 129/82 H BP Systolic 123 129 BP Diastolic 82 82 Pulse Ox 10/21/24 15:19 10/21/24 15:34 10/21/24 15:34 Temperature Temperature Source Pulse Rate 61 65 Respiratory Rate Blood Pressure 130/80 H BP Systolic 130 BP Diastolic 80 Pulse Ox 10/21/24 15:50 10/21/24 15:50 10/21/24 16:05 Temperature Temperature Source Pulse Rate 60 Respiratory Rate Blood Pressure 130/82 H 130/79 H BP Systolic 130 130 BP Diastolic 82 79 Pulse Ox 10/21/24 16:05 10/21/24 16:19 10/21/24 16:19 Temperature Temperature Source Pulse Rate 60 63 Respiratory Rate Blood Pressure 132/78 H BP Systolic 132 BP Diastolic 78 Pulse Ox 10/21/24 16:49 10/21/24 16:49 10/21/24 17:04 Temperature Temperature Source Pulse Rate 57 L Respiratory Rate Blood Pressure 131/83 H 134/84 H BP Systolic 131 134 BP Diastolic 83 84 Pulse Ox 10/21/24 17:04 10/21/24 17:19 10/21/24 17:19 Temperature Temperature Source Pulse Rate 56 L 56 L Respiratory Rate Blood Pressure 135/78 H BP Systolic 135 BP Diastolic 78 Pulse Ox 10/21/24 17:49 10/21/24 17:49 10/21/24 18:04 Temperature Temperature Source Pulse Rate 65 Respiratory Rate Blood Pressure 141/92 H 130/72 H BP Systolic 141 130 BP Diastolic 92 72 Pulse Ox 10/21/24 18:04 10/21/24 18:19 10/21/24 18:19 Temperature Temperature Source Pulse Rate 60 74 Respiratory Rate Blood Pressure 128/74 H BP Systolic 128 BP Diastolic 74 Pulse Ox 10/21/24 18:34 10/21/24 18:34 Temperature Temperature Source Pulse Rate 64 Respiratory Rate Blood Pressure 136/77 H BP Systolic 136 BP Diastolic 77 Pulse Ox Physical Exam Const alert, oriented x3, no apparent distress and healthy appearing General Appearance: cooperative; Negative for anxious HEENT normocephalic Face and Sinus: normal facial exam Eyes EOMs intact bilaterally and no scleral icterus General Eye: normal appearance of both eyes Neck full ROM and supple Lymph Lymphatic: no lymphadenopathy noted Resp normal respiratory effort Effort and Inspection: able to speak in complete sentences Cardio regular rate GI soft to palpation and non-tender Inspection: gravid Palpation: soft; Negative for tender external exam normal Back/Spine no CVA tenderness Extremity normal to inspection, full ROM and no clubbing, cyanosis or edema General Extremity: Negative for calf tenderness or edema Skin Lesions: no lesions Rashes: no rashes Psych mental status grossly normal Labs Labs Labs: Blood Type A POSITIVE Antibody Screen NEGATIVE Hct 32.5 % (37-47) L Hgb 11.3 g/dL (12.0-15.0) L Obstetrics Ultrasound Syphilis Total Ab Nonreactive (Nonreactive) Rubella IgG Antibody REAC (Nonreactive) Hep Bs Antigen Nonreactive (Nonreactive) Hepatitis C Antibody Nonreactive (Nonreactive) Chlamydia DNA (ALISON) Negative (Negative) N.gonorrhoeae DNA (ALISON) Negative (Negative) HIV 1&2 Antibody Nonreactive (Nonreactive) Glucose 1 Hr 50 gm 124 mg/dL (70-140) Assessment & Plan (1) Genital warts due to HPV (human papillomavirus): (2) UTI (urinary tract infection) during : COMMENT: macrobid, cx sent (3) Anemia in preg-unspec: COMMENT: add Fe (4) Scoliosis: QUALIFIERS: Scoliosis type: unspecified scoliosis Spinal region: unspecified Qualified Code(s): M41.9 - Scoliosis, unspecified COMMENT: anesthesia consult (5) Supervision of high-risk : QUALIFIERS: Trimester: second trimester Qualified Code(s): O09.92 - Supervision of high risk , unspecified, second trimester COMMENT: [id number], EVE 11/08/24, boy Ajay Neal (6) : QUALIFIERS: Weeks of gestation: 37 weeks Qualified Code(s): Z3A.37 - 37 weeks gestation of COMMENT: GBS neg, declined NIPT & Carrier testing (7) FH: breast cancer in first degree relative: COMMENT: Mother @ 46yo, genetic needs to find out what, offered empower screen (8) Asthma: COMMENT: needs albuterol PRN, rare use. (9) Pre-eclampsia: PLAN: Plan Patient presents IOL, plan management for with cytotec then pitocin/AROM. Pain management: plans epidural. GBS negative. Management of any complications: as above I have reviewed the [facility] and made any clinically relevant updates.
[2024-10-21 20:45] LABS: Syphilis Antibodies Nonreactive (Nonreactive)
[2024-10-22] VITALS (55 sets, daily range): BP systolic 99–151; BP diastolic 50–84; PULSE 50–100; RESP 14–18; TEMP 36.7–37.4; O2SAT 91–100
[2024-10-22] MEDS: Lactated Ringers 1,000 ML 50 ML IV (00:23)
[2024-10-22] MEDS: LACTATED RINGERS 500 ML 999 ML IV (00:25)
[2024-10-22] MEDS: 0.9% Saline Lock 10 ML Syringe IV (09:24)
[2024-10-22] MEDS: 0.9% Normal Saline Single 100 ML IV.SOLN. INTRA-UTER (09:24)
[2024-10-22] MEDS: Lactated Ringers 1,000 ML 999 ML IV ×2 (12:08→16:30)
[2024-10-22] MEDS: fentaNYL-bupivacaine (epidural) 100 ML BAG EPIDURAL (13:07)
[2024-10-22] MEDS: Lidocaine 2% (5ml sdv) 5 ML VIAL.MPF 400 ML EPIDURAL (15:18)
[2024-10-22] MEDS: Cefazolin 1 GM/5 ML Vial 2 GM IV (15:21)
--- NOTE | 2024-10-22 15:55 | CASEMGMT ---
Sw presented to OR in response to BARBARA called for patient. Sw introduced self to father of baby (FOB- Ángel). Sw assisted Ángel in garbing up to enter OR when appropriate for him to do so. Sw answered FOB questions and provided support. FOB states that this is his and patient's first baby together, they plan on naming him Ajay. FOB appeared calm, but expressing appropriate concern regarding MOB. Sw continued to wait and offered support to FOB until he was able to go with MOB in operating room. Janeen Mejia, MACHINE REBUILDER, INVAS TECH
[2024-10-22] MEDS: morphine PF (epidural) 5 MG/10 ML Vial 3 MG EPIDURAL (15:56)
[2024-10-22] MEDS: Oxytocin 15 Units/NS 250ml 15 UNITS/250 ML IV.SOLN 83 UNITS IV (16:35)
[2024-10-22] MEDS: Lactated Ringers 1,000 ML 100 ML IV (17:30)
--- NOTE | 2024-10-22 17:46 | EX.PCM.OBRPT ---
Assessment & Plan (1) Pre-eclampsia: (2) UTI (urinary tract infection) during : COMMENT: macrobid, cx sent (3) Anemia in preg-unspec: COMMENT: add Fe (4) Scoliosis: QUALIFIERS: Scoliosis type: unspecified scoliosis Spinal region: unspecified Qualified Code(s): M41.9 - Scoliosis, unspecified COMMENT: anesthesia consult (5) Genital warts due to HPV (human papillomavirus): (6) Supervision of high-risk : QUALIFIERS: Trimester: second trimester Qualified Code(s): O09.92 - Supervision of high risk , unspecified, second trimester COMMENT: [id number], EVE 11/08/24, boy Ivone FERNANDEZ Ángel (7) : QUALIFIERS: Weeks of gestation: 37 weeks Qualified Code(s): Z3A.37 - 37 weeks gestation of COMMENT: GBS neg, declined NIPT & Carrier testing (8) FH: breast cancer in first degree relative: COMMENT: Mother @ 46yo, genetic needs to find out what, offered empower screen (9) Asthma: COMMENT: needs albuterol PRN, rare use. (10) Category II heart rate tracing during labor and delivery: (11) delivery delivered: COMMENT: LTCS 37 cat ii tracing ivone dawson Maternal Data Information EVE Calculator Estimated Delivery Date Method Current WG Current Estimate 11/08/24 LMP (Certain) 37w 4d Operative Report (OB) Procedure Details Date of Procedure: 10/22/24 Procedure Start Time: 15:24 Pre-Operative Diagnosis: Distress and Other Other Pre-Operative diagnosis: see a/p comments Post-Operative Diagnosis: Same as Pre-operative diagnosis Type of Anesthesia: Spinal Special Medications: none Antibiotic Given: Ancef 2 grams IV x1 Drain: Mckeon to straight drain Estimated Blood Loss: 600 Fluids Replaced: crystalloid Findings Description of surgery: The patient was induced for preeclampsia overnight, underwent cytotec then a mckeon bulb, then an epidural. the mckeon bulb came out and she had a bradycardia into the 70s x 8 minutes which recovered but the patient started having recurrent late decelerations with minimal variability despite position changes, and a fluid bolus, even with normal bps. Mckeon catheter was placed. she was 5 cm and still remote from delivery so decision was made to proceed with immediate delivery. The patient was placed in the dorsal supine position with leftward tilt. Patient was prepped and draped in the normal sterile fashion. Pfannenstiel skin incision was made with the scalpel and carried through to the underlying layer of fascia with the scalpel. Fascia was nicked in the midline and the incision extended laterally. The rectus bellies were dissected off superiorly and inferiorly with out complication both sharply and bluntly. The peritoneum was entered digitally. The incision was stretched and a low transverse uterine incision was made with the scalpel. The infant's head was delivered atraumatically followed by the anterior and posterior shoulders without complication the rest of the infant delivered. The cord was clamped and cut and the infant was handed off to awaiting nurse. The placenta was delivered spontaneously immediately following and was noted to be intact and have a three-vessel cord. The uterus was exteriorized cleared of all clots and debris, and the incision was closed in a single layer closure using #1 Monocryl. The ovaries and fallopian tubes were noted to be within normal limits. The uterus was returned to the maternal abdomen and gutters were cleared of all clots and debris. The peritoneum was closed with 3-0 Monocryl in a running fashion. Gloves were changed prior to fascial closure. Fascia was closed with 0 PDS in a running fashion. Subcutaneous tissue was copiously irrigated and the skin was closed with 3-0 Monocryl in a subcuticular fashion. Mepilex dressing was applied without complication. Patient was taken to recovery in stable condition. It was discussed with the patient that based on the clinical information obtained during this encounter, combined with her history, at this time I would recommend vaginal or cesareans for future deliveries if further pregnancies are desired. Surgical findings: OP presentation, placenta appeared to have two infarcted areas, cord pH 7.25 Amniotic Membrane Rupture Type: Artificial Amniotic Fluid Description: Clear Specimen collected: Yes Description of specimen(s) removed: Placenta Cord Vessel Description: 3 Vessels Delayed Cord Clamping: Yes Water Supply Technician case therapist: Yes Sprayer Hand: Mere Phipps Tasks completed by miller first: Opening & closing, Retracting and Other (Assisting with delivery of the infant) Additional production assistant?: No Complications Complications: No Admit VTE Documentation VTE Present on Admission: No VTE Mechan Device Prophylaxis: SCD's Procedures Urinary/Genital [id number]: 45103 delivery+PP Care([facility])
--- NOTE | 2024-10-22 17:55 | DCINST_ITS ---
Discharge Instructions DC O2, CPAP, BIPAP needs Home O2 Discharge instructions: No Dressing / Incision Discharge Activity: May Not Drive (for 2 weeks or while taking narcotic pain medications.), May Shower and May Take a Tub Bath (in 7 days) May shower in (days): 0 May resume sexual activity in: 4-6 weeks Weight Bearing Status: Full weight bearing Lifting Restrictions: 20 pounds Dressing / Incision Call your doctor if your incision/area has: Continuous Slow Oozing, Sudden Increased Bleeding, Increased Pain/ Swelling, Increased Redness and Foul Smelling Discharge Call your doctor if you observe: Fever of 101 or Higher and Using more than 1 pad per hour (for 2 hours) Suture Line Care: Avoid Pulling/Pushing and Avoid Pinching/Bending Cleanse incision/area with: Soap & Water and Keep Dressing Clean & Dry Follow Up Care Please Follow Up With: Rochelle Orozco MD When: Call [phone] to make an appointment for an incision check in 1-2 weeks. Test Results: Test results from this visit will be discussed in further detail at your follow- up appointment, if applicable. Discharge Plan Admission Admit Date/Time: 10/21/24 19:05 Attending Provider: Rochelle Orozco Primary Care Provider: Care PhysicianMadeline Primary Discharge Orders/Prescriptions Prescriptions: New oxycodone-acetaminophen [Percocet] 5-325 mg tablet 1 tab PO Q4H PRN (Reason: pain) 7 Days Qty: 20 0RF naproxen 500 mg tablet 500 mg PO BID PRN PRN (Reason: Pain) Qty: 30 1RF No Action mv-mn [id number] 180 mcg-35 mg- 25 mg-5 mg tablet,chewable 1 tab PO .qd famotidine [Pepcid] 20 mg tablet 20 mg PO BID Qty: 60 4RF Slow Fe PO DAILY Referrals / Follow Up: Care Physician,Madeline Primary [Primary Care Provider] - Disposition Disposition (needs filled in before D/C Order can be placed): Home, Self Care
[2024-10-22] MEDS: Ketorolac 30 MG/ML Syringe IV (18:17)
[2024-10-23] VITALS (8 sets, daily range): BP systolic 108–133; BP diastolic 67–86; PULSE 60–72; RESP 14–16; TEMP 36.7–36.9; O2SAT 96–99
[2024-10-23] MEDS: Ketorolac 30 MG/ML Syringe IV ×3 (00:45→12:28)
[2024-10-23 07:08] LABS: Hematocrit 29.6 % (37-47); Hemoglobin 10.3 g/dL (12.0-15.0); Mean Corp Hgb Conc 34.8 g/dL (32-36); Mean Corpuscular Volume 94.3 fL (81-99); Mean Platelet Vol. 9.3 fl (6.2-12.0); Platelet Count 188 K/mm3 (150-450); RBC Distribution Width CV 13.2 % (11.6-14.6); RBC Distribution Width SD 44.8 fl (35.1-43.9); Red Blood Count 3.14 M/mm3 (4.2-5.4); White Blood Count 13.9 K/mm3 (4.4-11.0)
[2024-10-23] MEDS: Senna/Docusate Sodium 1 Tablet PO (10:12)
[2024-10-23 12:14] LABS: Pathology Sent to OSU SEE PATHOLOGY REPORT
[2024-10-23] MEDS: 0.9% Saline Lock 10 ML Syringe IV (12:43)
--- NOTE | 2024-10-23 14:52 | CASEMGMT ---
Brief social work note Date: 10/23/24 Time: 1440 Sw presented to bedside to meet with parents and complete psychosocial assessment. Sw observes that mother of baby (MOB- Maida) is fast asleep in bed. Father of baby (FOB- Ángel) laying on couch awake with baby. Sw explained sw role during admission and stated was going to go over assessment with parents, but did not want to wake MOB. FOB states that this is the first that MOB has slept since delivery yesterday, and did not want to wake her either. Sw stated that sw was with FOB during BARBARA yesterday and reintroduced self to FOB. FOB apologized and stated yesterday at that time was a blur. Sw stated no reason for apology and asked how family is doing today. FOB teary eyed and said that they are doing well and he is thankful that the scary part is over. FOB looked happy holding baby, and observed to hold him in loving manner. FOB thanked sw to touching base with him and denied any other needs or concerns at this time. Sw explained that sw will touch base with family tomorrow prior to discharge. FOB expressed understanding. Janeen Mejia, BLEACHER KRAFT PULP, JIGGER CROWN POUNCING MACHINE OPERATOR
--- NOTE | 2024-10-23 19:24 | PCM.PN.OB ---
Subjective Subjective Patient doing well without complaints. Tolerating PO. Ambulating and voiding without difficulty. feeding well. Denies chest pain, shortness of breath, calf pain/swelling, fevers, chills, lightheadedness. Objective Data Objective Data Vital Signs: Vital Signs Temp Pulse Resp BP Pulse Ox O2 Del Method 98.4 F 69 15 120/76 96 Room Air 10/23/24 16:13 10/23/24 16:13 10/23/24 16:13 10/23/24 16:13 10/23/24 08:11 10/23/24 16:13 Oxygen Delivery Method Room Air Weight: 156 lb Body Mass Index (BMI) 26.7 Intake & Output: Intake and Output for Last 24 Hours 10/21/24 10/22/24 10/23/24 23:59 23:59 23:59 Intake Total 4196.50 / 4196.50 Output Total 1200 / 1200 850 / 850 Balance 2996.50 / 2996.50 -850 / -850 Lab / Micro Data 10/23/24 06:50 10/21/24 14:50 Labs: Laboratory Results - last 24 hr 10/23/24 06:50: WBC 13.9 H, RBC 3.14 L, Hgb 10.3 L, Hct 29.6 L, MCV 94.3, MCH 32.8 H, MCHC 34.8, RDW Std Deviation 44.8 H, RDW Coeff of Elvis 13.2, Plt Count 188, MPV 9.3 ROS Constitutional Constitutional: Reports systems reviewed and no addt'l complaints, except as documented Cardiovascular Cardiovascular: Reports systems reviewed and no addt'l complaints, except as documented Respiratory/Chest Respiratory/Chest: Reports systems reviewed and no addt'l complaints, except as documented Gastrointestinal Gastrointestinal: Reports systems reviewed and no addt'l complaints, except as documented Physical Exam Const alert, oriented x3 and no apparent distress HEENT Head and Scalp: atraumatic Resp normal respiratory effort GI soft to palpation and non-tender Bimanual Exam - Vag & Uterus: uterus non-tender Uterus Palpation: uterus fundus firm (below Umbilicus) Assessment & Plan (1) delivery delivered: COMMENT: LTCS 37 cat ii tracing ivone boy PLAN: Plan s/p LTCS PPD # 1 1. routine post care 2. breast feeding- support given 3. rh positive 4. rubella immune monitor bps
[2024-10-24 02:49] VITALS: BP 112/65; PULSE 97; RESP 16; O2SAT 97
[2024-10-24 09:21] VITALS: BP 125/80; PULSE 75; RESP 16; O2SAT 98
[2024-10-24 09:36] VITALS: TEMP 36.9
--- NOTE | 2024-10-24 10:33 | PCM.PN.CNM ---
Objective Data Objective Data Vital Signs: Vital Signs Temp Pulse Resp BP Pulse Ox O2 Del Method 98.5 F 75 16 125/80 H 98 Room Air 10/24/24 09:36 10/24/24 09:21 10/24/24 09:21 10/24/24 09:21 10/24/24 09:21 10/24/24 09:21 Oxygen Delivery Method Room Air Weight: 156 lb Body Mass Index (BMI) 26.7 Intake & Output: Intake and Output for Last 24 Hours 10/22/24 10/23/24 10/24/24 23:59 23:59 23:59 Intake Total 4196.50 / 4196.50 0 / 0 Output Total 1200 / 1200 1550 / 1550 Balance 2996.50 / 2996.50 -1550 / -1550 Lab / Micro Data 10/23/24 06:50 10/21/24 14:50 ROS Constitutional Constitutional: Reports systems reviewed and no addt'l complaints, except as documented Respiratory/Chest Respiratory/Chest: Reports systems reviewed and no addt'l complaints, except as documented Gastrointestinal Gastrointestinal: Reports systems reviewed and no addt'l complaints, except as documented Genitourinary Genitourinary: Reports systems reviewed and no addt'l complaints, except as documented Musculoskeletal Musculoskeletal: Reports systems reviewed and no addt'l complaints, except as documented Psychiatric Psychiatric: Reports systems reviewed and no addt'l complaints, except as documented Physical Exam Const alert, oriented x3 and no apparent distress General Appearance: cooperative, comfortable, well kempt and well developed Chest inspection of chest normal Resp normal respiratory effort Resp Narrative: Respirations Eased & Unlabored. GI normal to inspection, nondistended, normoactive bowel sounds GI Narrative: Reports passing flatus. Uterus Palpation: uterus fundus firm (midline, u/1 to u/2, small amount of dark red lochia, no odor. ) and other OB Skin Skin Narrative: LTCS wound dressing is dry & intact, no drainage noted. Neuro oriented x3 Psych mental status grossly normal, thought process normal, cooperative, affect normal and speech normal Charges/Coding Procedures Urinary/Genital 52xxx-59xxx: 76141 CARE AFTER DELIVERY Multi Select Codes Urinary/Genital Urinary/Genital CPT Codes: 26320 Vaginal Delivery+ PP Care(PATRICIA) Assessment & Plan (1) delivery delivered: COMMENT: LTCS 37 cat ii tracing ivone boy PLAN: f/u in office 1 wk for incision check (2) Pre-eclampsia: COMMENT: Denies all s/s of Pre-E currently, BP WNL this AM. PLAN: f/u in office in 1 wk for BP check. Also, monitor BP's at home. Call if >140/90 or s/s of Pre-E appear. PLAN: Plan s/p LTCS PPD # 2 1. routine post care 2. breast feeding- support given 3. rh positive 4. rubella immune 5. d/c home today, f/u in office in 1 wk for BP & Incision check
--- NOTE | 2024-10-24 10:41 | PCM.DC.SUM ---
Providers Date of Admission: 10/21/24 Primary Care Physician: No Primary Care Phys Reason For Visit: PRIMARY C SECTION Diagnosis Discharge Diagnosis (1) delivery delivered: Status: Acute Code(s): O82 - Encounter for delivery without indication Plan: f/u in office 1 wk for incision check (2) Pre-eclampsia: Status: Acute Code(s): O14.90 - Unspecified pre-eclampsia, unspecified trimester Plan: f/u in office in 1 wk for BP check. Also, monitor BP's at home. Call if >140/90 or s/s of Pre-E appear. Plan s/p LTCS PPD # 2 1. routine post care 2. breast feeding- support given 3. rh positive 4. rubella immune 5. d/c home today, f/u in office in 1 wk for BP & Incision check Medications at Discharge Home Medications mv-mn 110-FA 180 mcg-om3 35 mg-dha 25 mg-epa 5 mg-fish oil chew tablet 1 tab PO .qd 03/24/24 famotidine 20 mg tablet (Pepcid) 20 mg PO BID #60 tabs 09/16/24 Slow Fe PO DAILY 10/01/24 naproxen 500 mg tablet 500 mg PO BID PRN PRN Pain #30 tabs 10/22/24 oxycodone-acetaminophen 5 mg-325 mg tablet (Percocet) 1 tab PO Q4H PRN pain 7 days #20 tabs 10/22/24 Hospital Course Operations - ( Section) Summary of Care Provided Minutes Spent on Discharge: 15 Physical Exam Const alert, oriented x3 and no apparent distress General Appearance: cooperative and comfortable Resp normal respiratory effort, no retractions and no use of accessory muscles GI normal to inspection, nondistended, normoactive bowel sounds GI Narrative: Reports passing flatus Narrative: FF, ML u/1 to u2, small dark lochia rubra, no odor. Extremity normal to inspection Skin Skin Narrative: LTCS wound dressing is dry and intact, no drainage noted. Neuro moves all extremities Psych mental status grossly normal, affect normal and speech normal Weight / BMI Weight Weight: 156 lb Body Mass Index (BMI) 26.7 ABG / Lab / Microbiology Data 10/23/24 06:50 10/21/24 14:50 D/C Instructions May shower in (days): 0 May resume sexual activity in: 4-6 weeks Weight Bearing Status: Full weight bearing Call your doctor if your incision/area has: Continuous Slow Oozing, Sudden Increased Bleeding, Increased Pain/ Swelling, Increased Redness and Foul Smelling Discharge Call your doctor if you observe: Fever of 101 or Higher and Using more than 1 pad per hour (for 2 hours) Suture Line Care: Avoid Pulling/Pushing and Avoid Pinching/Bending Cleanse incision/area with: Soap & Water and Keep Dressing Clean & Dry DC O2, CPAP, BIPAP Needs Home O2 Discharge instructions: No Please Follow Up With: Rochelle Orozco MD When: Call [phone] to make an appointment for an incision check in 1-2 weeks. Meaningful Use Info Meaningful Use Meaningful Use Diagnoses (Choose all that apply): None applicable Discharge Plan Admission Admit Date/Time: 10/21/24 19:05 Attending Provider: Rochelle Orozco Primary Care Provider: Care Physician,Madeline Primary Instructions Patient Instructions: After a Delivery (WP) Discharge Orders/Prescriptions Prescriptions: New oxycodone-acetaminophen [Percocet] 5-325 mg tablet 1 tab PO Q4H PRN (Reason: pain) 7 Days Qty: 20 0RF naproxen 500 mg tablet 500 mg PO BID PRN PRN (Reason: Pain) Qty: 30 1RF No Action mv-mn [id number] 180 mcg-35 mg- 25 mg-5 mg tablet,chewable 1 tab PO .qd famotidine [Pepcid] 20 mg tablet 20 mg PO BID Qty: 60 4RF Slow Fe PO DAILY Referrals / Follow Up: Care Physician,No Primary [Primary Care Provider] - Disposition Disposition (needs filled in before D/C Order can be placed): Home, Self Care Charges/Coding Procedures Urinary/Genital 52xxx-59xxx: 02960 CARE AFTER DELIVERY
--- NOTE | 2024-10-24 12:30 | CASEMGMT ---
Social Work Date of referral: 10/22/25 Reason for referral: Mental Health/History of anxiety bingo worker attempted to meet with and complete assessment however was told that the family had already been discharged. bingo worker was not able to make phone contact with family to try and complete the assessment over the phone so social worker psychiatric notified [facility] social media sr strategy manager Janeen as well as optical instrument assembly supervisor so that assessment can be completed hopefully this week by phone. Marie Abreu, CARDIAC SONOGRAPHER, [employer]
== END 2024-10-24 12:05 | disposition home or self-care (01) | DRG 540 ==
LOC: WPOUT 19:19 → WP 19:19
PROVIDERS: Obstetrics & Gynecology; Admitting Provider Obstetrics & Gynecology; Referring Provider Obstetrics & Gynecology; Visit Provider Obstetrics & Gynecology
DX: O76 Abnormality in fetal heart rate and rhythm complicating labor and delivery (principal); O14.94 Unspecified pre-eclampsia, complicating childbirth; J45.909 Unspecified asthma, uncomplicated; D64.9 Anemia, unspecified; M41.9 Scoliosis, unspecified; A63.0 Anogenital (venereal) warts; O99.02 Anemia complicating childbirth; Z37.0 Single live birth; O98.32 Other infections with a predominantly sexual mode of transmission complicating childbirth; Z82.5 Family history of asthma and other chronic lower respiratory diseases; Z3A.37 37 weeks gestation of pregnancy; O99.52 Diseases of the respiratory system complicating childbirth; O99.893 Other specified diseases and conditions complicating puerperium; Z80.3 Family history of malignant neoplasm of breast
CPT/HCPCS: 59025; 59050; 82565; 82570; 84156; 84450; 84460; 84550; 85027; 86780; 86850; 86900; 86901; 99221; A4216; G0378; J2405

== ENCOUNTER → 2024-12-02 | Outpatient (CLI) | payer MEDICAID, SELFPAY | END | disposition home or self-care (01) | LOC: LABSPEC 16:28 | PROVIDERS: Visit Provider Obstetrics & Gynecology | DX: N89.8 Other specified noninflammatory disorders of vagina (principal) | CPT/HCPCS: 87070; 87205 ==